=== PATIENT | female | born 1935 | race Caucasian/White ===

== ENCOUNTER → 2024-09-25 | Outpatient (CLI) | payer MEDICARE, MEDICAID, SELFPAY ==
[2024-09-25 14:46] LABS: Alanine Aminotransferase 9 U/L (10-49); Albumin/Globulin Ratio 1.3 (1.2-2.2); Alkaline Phosphatase 91 U/L (46-116); Anion Gap 6 (7-16); Aspartate Amino Transferase 19 U/L (0-34); BUN/Creatinine Ratio 26 Ratio (12-20); Bilirubin,Total 0.8 mg/dL (0.3-1.2); Blood Urea Nitrogen 31 mg/dL (9-23); Calcium 9.6 mg/dL (8.3-10.6); Calcium (Corrected) 9.6 mg/dL (8.5-10.1); Carbon Dioxide 24.9 mMol/L (20.0-31.0); Chloride 106 mMol/L (98-107); Creatinine (Component) 1.2 mg/dL (0.6-1.3); Glucose 83 mg/dL (74-106); Osmolality,Calculated 279 (275-295); Potassium 4.4 mMol/L (3.4-5.1); Sodium 137 mMol/L (136-145); eGFR 44 See Note
== END | disposition home or self-care (01) ==
PROVIDERS: PCP Family Medicine; Referring Provider Family Medicine; Visit Provider Family Medicine
DX: Z00.00 Encounter for general adult medical examination without abnormal findings (principal)
CPT/HCPCS: 36415; 80053

== ENCOUNTER → 2024-10-09 | Outpatient (CLI) | payer MEDICARE, MEDICAID, SELFPAY ==
[2024-10-09 14:14] LABS: Collection Type, Urine Clean Catch
[2024-10-09 14:38] LABS: Bilirubin,Urine Negative (Negative); Blood,Urine Negative (Negative); Clarity,Urine Clear (Clear/Hazy); Color,Urine Lt-Yellow (Lt Yel-Yel); Glucose, Urine Negative (Negative); Ketones,Urine Negative (Negative); Leukocyte Esterase,Urine Negative (Negative); Nitrite,Urine Negative (Negative); Protein,Urine Negative (Neg - Trace); RBC,Urine 2 /hpf (0-3); Specific Gravity,Urine 1.016 (1.001-1.035); Squamous Epithelial Cell,Urine 1 /hpf (0-5); Urobilinogen,Urine Negative mg/dL (0.0-1.0); WBC,Urine 3 /hpf (0-5)
== END | disposition home or self-care (01) ==
LOC: SLDO 14:03
PROVIDERS: PCP Family Medicine; Referring Provider Family Medicine; Visit Provider Family Medicine
DX: N39.0 Urinary tract infection, site not specified (principal)
CPT/HCPCS: 81001; 87086

== ENCOUNTER 2024-11-27 10:39 | Inpatient (IN) | payer MEDICARE, MEDICAID, SELFPAY ==
[2024-11-27] VITALS (8 sets, daily range): BP systolic 116–152; BP diastolic 51–82; PULSE 63–90; RESP 17–97; TEMP 36–37.1; O2SAT 96–100; BMI 17.4; BMI 16.7
--- NOTE | 2024-11-27 10:45 | PC.NURSE ---
Pt. here from home to room 9, pt. states she has no pain, pt. is a GCS of 15, grand daughter is bedside and states pt. does live alone but grand daughter states she has home health and cameras on her grand mother. Grand daughter states she has power of claim attorney. Grand daughter states over the past 4 days pt. has declined, grand daughter states she is more confused and weaker.
--- NOTE | 2024-11-27 11:26 | XR_ITS ---
Examination: AP chest single view Technique one AP portable upright chest single view Exam date and time: November 27, 2024 12:28 PM Comparison February 15, 2014 INDICATIONS: Onset chest pain today. FINDINGS: Normal heart size Accentuation basilar bronchovascular markings Severe osteopenia IMPRESSION: Basilar bronchitis pattern
--- NOTE | 2024-11-27 11:28 | EKG_ITS ---
[facility] Test Date: 2024-11-27 Pat Name: LILIANA HIGH Department: Room: - Gender: Female Public Health Sanitarian Technician: : [id number] Requested By: Sol Parsons Order Number: [id number] Reading MD: Sol Parsons Measurements Intervals [place] Rate: 61 P: 74 WV: 127 QRS: 37 QRSD: 78 T: 59 QT: 417 QTc: 423 Interpretive Statements SINUS RHYTHM Compared to ECG 12/01/2017 13:25:43 Sinus bradycardia no longer present /store/S0/[id number].pdf
--- NOTE | 2024-11-27 11:29 | XR_ITS ---
Examination:Right hip AP, lateral, AP pelvis 3 views Technique: Hip AP lateral, AP pelvis, 3 views Exam date and time:November 27, 2024 1215 hours INDICATIONS: Onset right-sided pain today. FINDINGS: Severe osteopenia No acute fracture Mild to moderate narrowing hip joints bilaterally Bones of the pelvis appear intact IMPRESSION: Mild to moderate narrowing hip joints bilaterally Given the osteopenia, recommend short-term follow-up AP pelvis as clinically warranted.
--- NOTE | 2024-11-27 11:29 | PD.EDWEAK ---
ED Weakness RME/HPI General Chief complaint: Weakness Stated complaint: WEAKNESS Time Seen by Provider: 11/27/24 11:13 Arrival date/time: 11/27/24 10:39 RME / HPI RME / HPI Narrative: 89-year-old female patient with no significant medical history, who lives alone, came in with her granddaughter, who is the power of assistant prosecuting attorney, came in for evaluation regarding generalized body weakness. Patient was seen by home health nurse today and was noted to be having less urination, foul-smelling urine, and was noted to be less mobile than usual. For the last 4 days. Granddaughter told me that he noticed the stool today was noted to be dark brown. Patient denies any vomiting blood. Patient is not taking any blood thinner. Patient denies any fall. Related Data Home Medications ?Medication ?Instructions ?Recorded ?Confirmed Amlodipine Besylate 5 mg PO HS ##0 02/15/14 12/01/17 furosemide 20 mg tablet (Lasix) 20 mg PO QDAY #0 tabs 02/15/14 12/01/17 valsartan 160 mg tablet (Diovan) 160 mg PO QDAY #0 tabs 02/15/14 12/01/17 clopidogrel 75 mg tablet (Plavix) 75 mg PO QDAY 12/01/17 12/01/17 metoprolol tartrate 50 mg tablet 50 mg PO QDAY 12/01/17 12/01/17 Allergies Allergy/AdvReac Type Severity Reaction Status Date / Time NKA Allergy Unknown Uncoded 11/27/24 10:55 Review of Systems Review of Systems Narrative Review of Systems: Review of system reviewed and within normal limits except mentioned in HPI ED Exam Narrative Physical exam: VITAL SIGNS: Reviewed. GENERAL APPEARANCE: Alert and interactive, follows commands, no acute distress, HEAD AND FACE: Non-traumatic. ENT: PERRL, pale conjunctiva, eyelid no trauma, Mucous membrane moist. NECK: Supple, nontender, no nuchal rigidity. CHEST: No tenderness, no crepitus, no paradoxical movement, no retractions. LUNGS: Clear, well ventilated, symmetric, no rales, no wheezing, no ronchi, no stridor, good breath sounds bilaterally. HEART: Regular rate, regular rhythm, no murmur, no gallops. ABDOMEN: Soft, positive bowel sounds, nondistended, no guarding, nontender, no rebound, no masses, RECTAL: Deferred. GENITAL: Deferred. NEUROLOGICAL: Gross motor function intact sensory function intact, Appropriate for age. MUSCULOSKELETAL: low back nontender, full range of motion. EXTREMITIES: Nontender, full range of motion. SKIN: Color pale, dry, no rash, no lacerations, no abrasions, no contusions. LYMPHATICS: Deferred. Course Quality Measures none Orders Category Date Time Status COVID-19 Screening Questionnaire NOW Care 11/27/24 17:[address] Screening NOW Care 11/27/24 14:32 Active Decision to Admit X1 Care 11/27/24 17:43 Active EKG (ED ONLY) *Do not use* NOW Care 11/27/24 11:29 Completed In and Out Catheter X1 Care 11/27/24 11:28 Completed NPO after Midnight ONCE Care 11/27/24 17:44 Active Occult Blood,Stool (Nursing) ONCE Care 11/27/24 11:25 Active Consult to Gastroenterology Stat Cons 11/27/24 14:33 Ordered Diet NPO after Midnight Diet 11/28/24 00:[address] abdomen pelvis w con Stat Exams 11/27/24 14:32 Completed EKG (ED Only) Stat Exams 11/27/24 11:28 Draft XR chest 1V Stat Exams 11/27/24 11:26 Completed XR hip RT w pelvis 2-3V Stat Exams 11/27/24 11:29 Completed B-Type Natriuretic Peptide Stat Lab 11/27/24 12:45 Completed CBC Stat Lab 11/27/24 12:45 Completed Comprehensive Metabolic Panel Stat Lab 11/27/24 12:45 Completed Partial Thromboplastin Time Stat Lab 11/27/24 12:45 Completed Prothrombin Time with INR Stat Lab 11/27/24 12:45 Completed Troponin I Stat Lab 11/27/24 12:45 Completed Urinalysis, C/S if Indicated Stat Lab 11/27/24 11:51 Completed NA BENEDICT/NAHCO3/MINESH/PEG (Golytely) [Golytely] Med 11/27/24 17:44 Discontinued 4,000 ml PO X1 ONE Pantoprazole Inj [Protonix Inj] Med 11/27/24 11:40 Discontinued 80 mg IV X1 ONE Sodium Chloride 0.9% 1000 ml [Ns] 1,000 ml Med 11/27/24 11:27 Discontinued IV 999 mls/hr Vital Signs Vital signs: Vital Signs Temperature 98.5 F 11/27/24 10:52 Pulse Rate 90 11/27/24 10:52 Respiratory Rate 19 11/27/24 10:52 Blood Pressure 137/63 H 11/27/24 10:52 Pulse Oximetry (%) 99 11/27/24 10:52 Oxygen Delivery Method Room Air 11/27/24 10:52 Weakness MDM Narrative MDM Narrative:: 89-year-old female patient with no significant medical history, who lives alone, came in with her granddaughter, who is the power of assistant prosecuting attorney, came in for evaluation regarding generalized body weakness. Patient was seen by home health nurse today and was noted to be having less urination, foul-smelling urine, and was noted to be less mobile than usual. For the last 4 days. Granddaughter told me that he noticed the stool today was noted to be dark brown. Patient denies any vomiting blood. Patient is not taking any blood thinner. Patient denies any fall. Rectal exam was done by me, and it was strongly positive for occult blood. It was not dark or black tarry stool however it was dark green in color. Laboratory workup came back with 12.8 WBC/leukocytosis, CMP came back unremarkable. Urinalysis no UTI. Chest x-ray came back unremarkable. X-ray of pelvis came back unremarkable. EKG showed normal sinus rhythm, ventricular rate of 61 bpm, no ST segment elevation depression noted. CT scan of the abdomen pelvis showed Cholelithiasis, negative for cholecystitis Colonic diverticulosis, no diverticulitis Very large amounts of stool in the rectum with thickening the rectal wall, consider proctitis, rectal tumor not excluded, recommend direct inspection Consider nuclear medicine gastrointestinal bleeding study follow-up as clinically warranted I consulted Dr. Henriquez, discussed the case, who advised me to keep the patient for further management. Patient data External records reviewed:: None Clinical information provided by:: patient and family Social determinants that could affect healthcare access:: none Patient has the following chronic illnesses:: Hypertension How is presenting disease/condition affected by chronic disease/condition?: uneffected by Evaluation data The following diagnostics were reviewed and interpreted by me:: lab results and radiology exam(s) Lab and/or radiology exams considered but not ordered:: None Interpretation Summary: See results in MDM Medications / Prescriptions Medications or Prescriptions considered but not ordered:: None Medication administrations:: Medication Administration History Discontinued Medications Sodium Chloride (Ns) 1,000 mls @ 999 mls/hr IV .Q1H1M ONE Stop: 11/27/24 12:27 Last Infusion: 11/27/24 13:05 Dose: Infused Documented By: Admin: 11/27/24 12:04 Dose: 999 mls/hr Documented By: ED Pantoprazole Sodium (Pantoprazole Inj 40 Mg Vial) 80 mg IV X1 ONE Stop: 11/27/24 11:41 Last Admin: 11/27/24 12:04 Dose: 80 mg Documented By: ED Polyethylene Glycol/Electrolytes (Na Benedict/Nahco3/Minesh/Peg (Golytely) 4,000 Ml Btl) 4,000 ml PO X1 ONE Stop: 11/27/24 17:45 Protonix IV, IV fluid hydration Consultations Consultation(s) initiated? (list below): Yes Consultation #1 (Physician, Specialty, Details): Spoke with Dr. Henriquez, thank you Dr. Henriquez Diagnosis Weakness Differential Diagnosis: anemia, dehydration and other (Constipation, upper GI bleed, rectal thickening rule out rectal tumor) Most likely diagnosis given after review of the tests above:: Upper GI bleed Admission Indicated Admission indicated?: indicated Admission Request Was there a request for admission?: Yes Admission Attestation Admission request attestation: Discussed case with [Dr. Logan Keller] from Hospitalist service regarding admission. Discussed patients ED course, exam findings, labs, and radiology results. The Hospitalist [agrees ] to accept the patient for admission. Disposition Plan Disposition Plan: Admit Discharge Plan Plan Patient Disposition: Admit Acute Care w/in Hospital Prescriptions/Referrals Prescriptions/Med Rec: No Action Amlodipine Besylate 5 MG tablet 5 mg PO HS Qty: 0 furosemide [Lasix] 20 MG tablet 20 mg PO QDAY Qty: 0 valsartan [Diovan] 160 MG tablet 160 mg PO QDAY Qty: 0 clopidogrel [Plavix] 75 mg Tablet 75 mg PO QDAY metoprolol tartrate 50 mg Tablet 50 mg PO QDAY Referrals: No Primary/Family,Physician [Primary Care Provider] - In 1 week Problem List Clinical Impression: Acute upper GI bleed Patient/Caregiver Discharge Instructions Print Language: [place] Stand Alone Forms: Anais Award Info., Patient Portal Info Letter
--- NOTE | 2024-11-27 11:57 | PC.NURSE ---
Grand daughter Vega talking with registration. Vega has power of Sampler Pickup.
[2024-11-27] MEDS: SODIUM CHLORIDE 0.9% 1000 ML 1,000 ML 999 ML IV (12:04)
[2024-11-27] MEDS: PANTOPRAZOLE INJ 40 MG VIAL 80 MG IV (12:04)
[2024-11-27 12:09] LABS: Collection Type, Urine Clean Catch
[2024-11-27 12:19] LABS: Bilirubin,Urine Negative (Negative); Blood,Urine Negative (Negative); Clarity,Urine Clear (Clear/Hazy); Color,Urine Yellow (Lt Yel-Yel); Culture Indicated,Urine Not Indicated; Glucose, Urine Negative (Negative); Hyaline Casts,Urine < 1 /hpf (0-1); Ketones,Urine Negative (Negative); Leukocyte Esterase,Urine Negative (Negative); Nitrite,Urine Negative (Negative); PH,Urine 5.5 (5.0-7.0); Protein,Urine Trace (Neg - Trace); RBC,Urine 1 /hpf (0-3); Specific Gravity,Urine 1.023 (1.001-1.035); Squamous Epithelial Cell,Urine 1 /hpf (0-5); WBC,Urine < 1 /hpf (0-5)
[2024-11-27 12:57] LABS: Basophils % (Auto) 0 % (0-2.5); Eosinophils % (Auto) 0 % (0-10); Hematocrit 34.4 % (36.0-46.0); Hemoglobin 11.4 g/dL (12.0-16.0); Immature Granulocytes % (Auto) 1 % (0-0); Immature Granulocytes Auto 0.07 Thou/mm3 (0.00-0.00); Lymphocytes # (Auto) 0.9 Thou/mm3 (1.0-4.8); Lymphocytes % (Auto) 7 % (10-50); Mean Corpuscular HGB Conc 33.1 g/dl (31.0-37.0); Mean Corpuscular Volume 100 fL (80-100); Monocytes # (Auto) 1.2 Thou/mm3 (0.0-0.8); Monocytes % (Auto) 10 % (0-12); Neutrophils # (Auto) 10.6 Thou/mm3 (1.8-7.7); Neutrophils % (Auto) 83 % (37-80); Nucleated Red Blood Cell % 0 /100 WBC (0); Platelet Count 213 Thou/mm3 (140-440); Red Blood Count 3.45 Miln/mm3 (4.00-5.20); White Blood Count 12.8 Thou/mm3 (3.6-11.0)
[2024-11-27 13:18] LABS: B-Type Natriuretic Peptide 326 pg/mL (0-100); INR 1.1 (0.9-1.3); Partial Thromboplastin Time 28.6 Seconds (22.0-36.0); Prothrombin Time 11.6 Seconds (9.0-12.2)
[2024-11-27 13:31] LABS: Alanine Aminotransferase 10 U/L (10-49); Albumin, Serum 3.8 gm/dL (3.4-4.8); Albumin/Globulin Ratio 1.1 (1.2-2.2); Alkaline Phosphatase 79 U/L (46-116); Anion Gap 10 (7-16); Aspartate Amino Transferase 26 U/L (0-34); BUN/Creatinine Ratio 30 Ratio (12-20); Bilirubin,Total 0.9 mg/dL (0.3-1.2); Blood Urea Nitrogen 36 mg/dL (9-23); Calcium 9.7 mg/dL (8.3-10.6); Calcium (Corrected) 9.9 mg/dL (8.5-10.1); Carbon Dioxide 26.3 mMol/L (20.0-31.0); Chloride 106 mMol/L (98-107); Creatinine (Component) 1.2 mg/dL (0.6-1.3); Estimated Creatinine Clearance 24.4 mL/min (>60); Globulin 3.4 gm/dL (2.3-3.5); Glucose 109 mg/dL (74-106); Osmolality,Calculated 292 (275-295); Potassium 4.3 mMol/L (3.4-5.1); Sodium 142 mMol/L (136-145); Total Protein 7.2 gm/dL (5.7-8.2); Troponin I < 0.020 ng/mL (0.0-0.045); eGFR 44 See Note
--- NOTE | 2024-11-27 14:32 | XR_ITS ---
Examination: CT abdomen with intravenous contrast CT pelvis with intravenous contrast 2-D coronal reconstructions 2-D sagittal reconstructions Date and time of exam:November 27, 2024 1545 hours INDICATIONS: Onset lower abdominal pain today. Gastrointestinal bleeding CTDI: vol (mGy) 8.62 DLP: (mGycm) 442 Technique: Multiple axial sections of the abdomen and pelvis have been obtained. 64 slice high-resolution scanner used. 3 mm axial sections have been obtained, post intravenous injection 60 cc [id number] 2-D sagittal, coronal reconstructions obtained. Low dose protocols were performed. One or more of the following dose reduction techniques were used; automated exposure control, adjustment of the mA and/or KV according to patient size, use of iterative reconstruction technique. Findings: Atelectasis in the right lower lobe Cholelithiasis, gallbladder wall does not appear thickened Spleen is not enlarged No pancreatic mass or dilated pancreatic duct Heavy abdominal aortic calcification Colonic diverticulosis Large amounts of stool in the rectum with thickening of the rectal wall Urinary bladder intact Severe osteopenia IMPRESSION: Cholelithiasis, negative for cholecystitis Colonic diverticulosis, no diverticulitis Very large amounts of stool in the rectum with thickening the rectal wall, consider proctitis, rectal tumor not excluded, recommend direct inspection Consider nuclear medicine gastrointestinal bleeding study follow-up as clinically warranted
--- NOTE | 2024-11-27 14:45 | PC.NURSE ---
Pt. cleaned and brief changed. Pt. had a large amount of hard dark brown stool and blood around her anus. Sol JOGGER OPERATOR bedside to see stool. Sol stating to pt.'s grand daughter that pt. will be admitted.
--- NOTE | 2024-11-27 18:40 | ESHP_ITS ---
<Statement entered by Leatha Rao MD - 11/27/24 19:20> Patient is an 89 year old female with PMH of dementia, CAD s/p stents x2, TIA who was brought to the ED from home for generalized weakness and decreased urine output. Vitals were stable, labs significant for anemia at 11. CT ap showed thickening around the rectum. Per ER report, patient had melena and so called GI who recommended to admit the patient for endoscopy. At bedside, patient is awake, alert but confused and did not want to be admitted. The granddaughter is the medical and legal POA. Only medication is rexulti (brexpripazole). Not on any blood thinners. Patient to be admitted for acute GI bleed. Will give protonix, CLD, and avoid any blood thinners. Will get iron study as well. GI consulted. Leatha Rao MD PGY-3 Documentation for date of: 11/27/24 HPI History of Present Illness Chief complaint: melena and failure to thrive History of present illness: 89-year-old female with past medical history of dementia, CAD status post 2 stents and TIA was admitted to the hospital on 11/27/2024 after coming to the ED brought in by her granddaughter who is her medical power of [place] attorney due to progressing weakness, dark stools, decrease in mobility, and urinary and bowel incontinence. On assessment patient's granddaughter was at bedside and able to provide most of the history given that patient has dementia, but was AOx3 yet she was confused with most of the history or events leading to her coming to the hospital today. As per patient's granddaughter and she has been having very poor oral intake as of recently and for the past 30 days she started having a lot of pain and straining when passing a bowel movement or peeing. She also noticed that she was leaking urine and that supposedly she had blood in her urine and in her stools. She stated that just as of recently a few weeks ago she started feeling a lot weaker and has not been able to ambulate due to feeling weak. Patient was reluctant about being admitted to the hospital, but granddaughter stated that she needed to be admitted and she laid on stated that she was okay with 1 night. Patient granddaughter stated that today she did not take her brexpiprazole and that may be why her dementia has a little bit worse. She stated that the patient is not taking any other medications at this time only brexpiprazole and that she is only following up with her primary care physician. Patient denies any chest pain, nausea, vomiting, fevers, or shortness of breath and the patient's granddaughter said that this was correct that she had not been experiencing any of the symptoms. Patient granddaughter also stated that she is not on any blood thinners at this time. Of note patient's granddaughter stated the patient is DNR/DNi and has a POLST form signed, will have social workers follow-up. ED course: Initially patient came in mildly hypertensive and afebrile. Initial labs were relevant for mild leukocytosis (12.8), anemia (11.4), increased BUN (36) which could be due to bleeding, elevated BNP at 326, and UA was negative for bacteria. Initial imaging included chest x-ray which showed some bronchitis pattern, hip/pelvis x-ray which was consistent with osteoporosis of the hips bilaterally, EKG showed sinus rhythm, and abdomen/pelvis CT showed cholelithiasis, colonic diverticulosis, and very large amount of stool in the rectum with thickening of the rectal wall. ED physician contacted GI specialist who stated to place the patient n.p.o. at midnight and to start GoLytely prep. PMH: As above Surgical Hx: Hysterectomy and stents Social Hx: Denies any smoking, drugs, alcohol FMH: Children with lung cancer, but otherwise noncontributory Allergies: NKDA Review of Systems Review of Systems Narrative Review of Systems: Constitutional: Denies sweats, Denies weight loss/gain, Denies fever, Denies chills, Admits weakness. HEENT: Denies hearing loss, Denies ear pain, Denies postnasal drip, Denies double vision, Denies blurry vision. Respiratory: Denies shortness of breath, Denies cough, Denies wheezing. Cardiovascular: Denies chest pain, Denies palpitations, Denies sudden loss of consciousness. GI: Admits blood in stool, Denies constipation, Admits abdominal pain, Denies difficulty swallowing, Denies nausea or vomit. : Admits urinary incontinence, Denies pain while urinating, Denies increased urinary frequency. MSK: Denies joint pain, Denies joint swelling, Denies numbness. Skin: Denies rash, Denies itching, Denies easy bruising. Neuro: Denies headaches, Denies dizziness, Denies seizures. Past Medical History Past Medical History Comments PMH COMMENT: amnesia Hysterectomy Hypertension Medications including medication for blood pressure, Lasix and Plavix Exam Vital Signs Temp Pulse Resp BP Pulse Ox O2 Del Method 98.6 F 75 20 152/75 H 99 Room Air 11/27/24 18:19 11/27/24 18:19 11/27/24 18:19 11/27/24 18:19 11/27/24 18:19 11/27/24 18:19 Narrative Exam General: A/O x3, no acute distress, thin frail elderly female with temporal wasting Eyes: PERRL, EOMI. Anicteric, vision grossly intact. Ears: No ear pain, no ear discharge, Hearing grossly intact. Nose: No nasal discharge. Mouth/Throat: Dry mucous membranes, no redness, no lesions. Neck: Neck supple, non-tender, no cervical lymphadenopathy. Lungs: Clear AUGUSTINE to auscultation and percussion, No accessory muscle use. Cardio: Normal S1/S2, regular rhythm, no murmurs, no JVD Abdomen: Soft, non-tender, no palpable masses, peristalsis present, no guarding or rebound. Extremities: Symmetrical, no significant deformities, no peripheral edema , non-tender, peripheral pulses presents. Skin: No rashes, no lesions, warm to touch. Neuro: No focal neurological deficits. motor strength AUGUSTINE LE 3/5 and UE 4/5 Results: Labs 11/29/24 05:09 11/29/24 05:09 Labs: Short CBC 11/27/24 Range/Units 12:45 WBC 12.8 H (3.6-11.0) Thou/mm3 Hgb 11.4 L (12.0-16.0) g/dL Hct 34.4 L (36.0-46.0) % Plt Count 213 (140-440) Thou/mm3 BMP 11/27/24 12:45 Sodium 142 Potassium 4.3 Chloride 106 Carbon Dioxide 26.3 BUN 36 H Creatinine 1.2 Glucose 109 H Calcium 9.7 Cardiac Enzymes 11/27/24 Range/Units 12:45 Troponin I < 0.020 (0.0-0.045) ng/mL Liver Function 11/27/24 Range/Units 12:45 Total Bilirubin 0.9 (0.3-1.2) mg/dL AST 26 (0-34) U/L ALT 10 (10-49) U/L Alkaline Phosphatase 79 (46-116) U/L Albumin 3.8 (3.4-4.8) gm/dL Urine 11/27/24 Range/Units 11:51 Urine Color Yellow (Lt Yel-Yel) Urine Clarity Clear (Clear/Hazy) Urine pH 5.5 (5.0-7.0) Ur Specific [place] 1.023 (1.001-1.035) Urine Protein Trace (Neg - Trace) Urine Glucose (UA) Negative (Negative) Quality Measures Quality Measures none Advance care planning discussed with:: patient and other (granddaughter) Medications Home Medications and Allergies Home Medications ?Medication ?Instructions ?Recorded ?Confirmed ?Type brexpiprazole 1 mg tablet (Rexulti) mg 11/28/24 Histo ry Allergies Allergy/AdvReac Type Severity Reaction Status Date / Time No Known Allergies Allergy Unverified 11/28/24 08:39 Visit Medications Acetaminophen (Acetaminophen 325 Mg Tablet) 650 mg PO Q6H PRN PRN Reason: pain and Fever >100.4 Stop: 12/27/24 18:18 Hydrocodone Bitart/Acetaminophen (Hydrocodone/Apap 5/325 Tablet) 1 tab PO Q4HR PRN PRN Reason: PAIN SCALE 4-10(Mod-Sev Stop: 12/02/24 18:18 Sodium Chloride (Ns) 1,000 mls @ 75 mls/hr IV .[id number] [facility] Stop: 11/28/24 07:49 Non-Formulary Medication (Brexpiprazole ) 1 mg PO QDAY [facility] Stop: 12/28/24 08:59 Ondansetron HCl (Ondansetron Inj 2 Mg/Ml Inj 2 Ml) 4 mg IV Q6H PRN; Protocol PRN Reason: NAUSEA OR VOMITING Stop: 12/27/24 18:18 Pantoprazole Sodium (Pantoprazole Inj 40 Mg Vial) 40 mg IVP BID [facility] Stop: 12/28/24 08:59 Discontinued Medications Sodium Chloride (Ns) 1,000 mls @ 999 mls/hr IV .Q1H1M ONE Stop: 11/27/24 12:27 Last Infusion: 11/27/24 13:05 Dose: Infused Pantoprazole Sodium (Pantoprazole Inj 40 Mg Vial) 80 mg IV X1 ONE Stop: 11/27/24 11:41 Last Admin: 11/27/24 12:04 Dose: 80 mg Polyethylene Glycol/Electrolytes (Na Benedict/Nahco3/Minesh/Peg (Golytely) 4,000 Ml Btl) 4,000 ml PO X1 ONE Stop: 11/27/24 17:45 Assessment & Plan Plan 89-year-old female with past medical history of dementia, CAD status post 2 stents and TIA was admitted to the hospital on 11/27/2024 due to acute blood loss anemia likely secondary to TIA bleed and failure to thrive. #Acute blood loss anemia #GI bleed #Melena ?Patient came in with complaints of dark stools ? DDx lower GI bleed given CT imaging of proctitis which could be due to malignancy versus upper GI bleed ?FOBT positive ? Hemoglobin 11.4 from her baseline around 13 ?Elevated BUN at 36 which could be related to bleeding Plan: ? Protonix 40 mg IV twice daily ? Iron panel and ferritin ordered for a.m. labs ? GoLytely prep for possible colonoscopy by GI specialist ?Bleeding precautions ? GI consulted, pursue recommendations ? Will continue to monitor #Generalized weakness #Failure to thrive #Cachexia #Hx of dementia ??Patient has been having declining her daily activities as she has been unable to walk due to weakness in lower extremities and she has also been having poor oral intake. ? Patient has a history of dementia which could be contributing to her lack of appetite as well as her poor oral intake. ? Patient's granddaughter at bedside stated that she has progressively got more weak in the past few weeks. Plan: ?Start patient's brexpiprazole 1 mg daily ? IV fluids NS 1 L ? Refer to physical therapy and registered dietitian ?Will try to monitor #Urinary incontinence ? Will place pure wick catheter at this time #Hx of CAD status post stents #Hx of TIA ? Patient is not on any medication at this time [facility]: [facility] and failure to thrive. Diet: NPO midnight GI prophylaxis: protonix DVT prophylaxis: SCDs Code: DNR Case disclosed with Attending Dr. Bauman and My senior Dr. Rao PGY3. Jameel Dobson PGY1 Attending Provider Attestation/Addendum I have discussed and was present for the essential components of the history, physical examination, diagnosis, and treatment plan with the resident. I agree with the patient's care as documented by the resident and amended herein by me. Tima Bauman DO. Although this document has been carefully reviewed, there may still be some phonetic and other typographical errors. These errors are purely grammatical due to imperfections in the software program and should not be construed in any way to compromise the substance of the patient's medical care during this visit.
[2024-11-27] MEDS: SODIUM CHLORIDE 0.9% 1000 ML 1,000 ML 75 ML IV (20:06)
--- NOTE | 2024-11-27 23:20 | PD.IMCONS ---
HPI Data of Consult Requesting Physician: Miles Bauman DO Primary Care Provider: Physician No Primary/Family Consult Narrative Reason for consult: Grossly Hemoccult positive stool drop in hemoglobin hematocrit History of present illness: 89 years old female brought into the emergency room by the daughter who has power of forestry patrolman complains of dark stools and weakness She was found to be grossly Hemoccult positive on rectal disease examination in the ER and subsequently got admitted She does take Plavix cc:: cc: Miles Bauman DO Review of Systems Review of Systems ROS Unobtainable: unobtainable due to medical condition Meds Home Medications and Allergies Home Medications ?Medication ?Instructions ?Recorded ?Confirmed ?Type Amlodipine Besylate 5 mg PO HS ##0 02/15/14 12/01/17 History furosemide 20 mg tablet (Lasix) 20 mg PO QDAY #0 tabs 02/15/14 12/01/17 History valsartan 160 mg tablet (Diovan) 160 mg PO QDAY #0 tabs 02/15/14 12/01/17 History clopidogrel 75 mg tablet (Plavix) 75 mg PO QDAY 12/01/17 12/01/17 History metoprolol tartrate 50 mg tablet 50 mg PO QDAY 12/01/17 12/01/17 History Allergies Allergy/AdvReac Type Severity Reaction Status Date / Time NKA Allergy Unknown Uncoded 11/27/24 10:55 Exam Vital Signs Temp Pulse Resp BP Pulse Ox O2 Del Method 96.8 F 88 18 151/82 H 97 Room Air 11/27/24 22:06 11/27/24 22:06 11/27/24 22:06 11/27/24 22:06 11/27/24 22:06 11/27/24 22:06 Results Labs 11/27/24 12:45 11/27/24 12:45 Labs: Short CBC 11/27/24 Range/Units 12:45 WBC 12.8 H (3.6-11.0) Thou/mm3 Hgb 11.4 L (12.0-16.0) g/dL Hct 34.4 L (36.0-46.0) % Plt Count 213 (140-440) Thou/mm3 BMP 11/27/24 12:45 Sodium 142 Potassium 4.3 Chloride 106 Carbon Dioxide 26.3 BUN 36 H Creatinine 1.2 Glucose 109 H Calcium 9.7 Cardiac Enzymes 11/27/24 Range/Units 12:45 Troponin I < 0.020 (0.0-0.045) ng/mL Liver Function 11/27/24 Range/Units 12:45 Total Bilirubin 0.9 (0.3-1.2) mg/dL AST 26 (0-34) U/L ALT 10 (10-49) U/L Alkaline Phosphatase 79 (46-116) U/L Albumin 3.8 (3.4-4.8) gm/dL Urine 11/27/24 Range/Units 11:51 Urine Color Yellow (Lt Yel-Yel) Urine Clarity Clear (Clear/Hazy) Urine pH 5.5 (5.0-7.0) Ur Specific [place] 1.023 (1.001-1.035) Urine Protein Trace (Neg - Trace) Urine Glucose (UA) Negative (Negative) Assessment and Plan Additional Assessment & Plan Additional Plan: # Acute GI bleed most likely upper Plan Serial CBC IV Protonix Fiberoptic esophagogastroduodenoscopy with possible biopsy possible therapeutic intervention under intravenous moderate sedation Consent obtained Procedure tentatively scheduled for tomorrow Will follow the patient
[2024-11-28] VITALS (14 sets, daily range): BP systolic 121–164; BP diastolic 57–89; PULSE 54–101; RESP 16–99; TEMP 36–36.9; O2SAT 91–99; BMI 16.8
[2024-11-28 05:42] LABS: Basophils % (Auto) 0 % (0-2.5); Eosinophils # (Auto) 0.1 Thou/mm3 (0.0-0.5); Eosinophils % (Auto) 1 % (0-10); Hematocrit 31.6 % (36.0-46.0); Hemoglobin 10.6 g/dL (12.0-16.0); Immature Granulocytes % (Auto) 1 % (0-0); Immature Granulocytes Auto 0.04 Thou/mm3 (0.00-0.00); Immature Reticulocyte Fraction 17.9 % (3.0-15.9); Lymphocytes # (Auto) 1.2 Thou/mm3 (1.0-4.8); Lymphocytes % (Auto) 16 % (10-50); Mean Corpuscular HGB Conc 33.5 g/dl (31.0-37.0); Mean Corpuscular Hemoglobin 33.8 pg (25.0-35.0); Mean Corpuscular Volume 101 fL (80-100); Monocytes # (Auto) 0.8 Thou/mm3 (0.0-0.8); Monocytes % (Auto) 10 % (0-12); Neutrophils # (Auto) 5.7 Thou/mm3 (1.8-7.7); Neutrophils % (Auto) 72 % (37-80); Nucleated Red Blood Cell % 0 /100 WBC (0); Platelet Count 201 Thou/mm3 (140-440); RDW Standard Deviation 46.3 fL (36.4-46.3); Red Blood Count 3.14 Miln/mm3 (4.00-5.20); Reticulocyte % (Auto) 1.3 % (0.5-1.5); Reticulocyte Absolute Auto 41.4 Biln/L (25.0-75.0); Reticulocyte Hgb Content 33.2 pg (28.0-35.0); White Blood Count 7.8 Thou/mm3 (3.6-11.0)
[2024-11-28 06:28] LABS: Alanine Aminotransferase 7 U/L (10-49); Albumin, Serum 3.4 gm/dL (3.4-4.8); Albumin/Globulin Ratio 1.1 (1.2-2.2); Alkaline Phosphatase 73 U/L (46-116); Anion Gap 10 (7-16); Aspartate Amino Transferase 18 U/L (0-34); BUN/Creatinine Ratio 27 Ratio (12-20); Blood Urea Nitrogen 27 mg/dL (9-23); Calcium 9.1 mg/dL (8.3-10.6); Calcium (Corrected) 9.6 mg/dL (8.5-10.1); Carbon Dioxide 24.5 mMol/L (20.0-31.0); Chloride 111 mMol/L (98-107); Estimated Creatinine Clearance 28.1 mL/min (>60); Glucose 87 mg/dL (74-106); Magnesium 1.9 mg/dL (1.6-2.6); Osmolality,Calculated 292 (275-295); Potassium 3.4 mMol/L (3.4-5.1); Sodium 145 mMol/L (136-145); Total Protein 6.4 gm/dL (5.7-8.2); eGFR 54 See Note
[2024-11-28 06:45] LABS: Ferritin 132 ng/mL (7.3-270.7); Iron 50 mcg/dL (50-170); Percent Iron Saturation 24 % (20-55); Total Iron Binding Capacity 206 mcg/dL (250-425); Unsaturated Iron Binding 156 (225-295)
[2024-11-28] MEDS: PANTOPRAZOLE INJ 40 MG VIAL IVP ×2 (09:06→21:53)
[2024-11-28] MEDS: POTASSIUM CHLORIDE 20 mEq TABCR 40 MEQ PO (09:07)
[2024-11-28] MEDS: HALOPERIDOL LACT INJ 5 MG/ML VIAL IV (13:15)
--- NOTE | 2024-11-28 13:49 | ESPR_ITS ---
<Statement entered by Leatha Rao MD - 11/28/24 17:28> I discussed with and supervised my co-resident involved in the care of this patient. I agree with the assessment and plan as documented above. Patient seen at bedside, grand-daughter also at bedside. Patient not sure if having any more bloody bowl movement. Hemoglobin at 10.6 today, leukocytosis improved. GI following, plan for EGD today. Continuing IV protonix BID. Leatha Rao MD PGY-3 Documentation for date of: 11/28/24 Subjective Subjective Interval history: Patient seen and examined at bedside. No events overnight. She is irritated and anxious while waiting for EGD. Labs show improved leukocytosis 7.8, downtrended Hb 10.6. EGD possible this evening. Continue IV protonix 40mg BID. Anticipate discharge next 24 hrs pending EGD results and Hb trend. Exam Vital Signs Temp Pulse Resp BP Pulse Ox O2 Del Method 97.8 F 93 18 137/78 H 99 Room Air 11/28/24 08:00 11/28/24 08:00 11/28/24 08:00 11/28/24 08:00 11/28/24 08:00 11/28/24 08:00 Narrative Exam General: A/O x3, iritable, thin frail elderly female Eyes: PERRL, EOMI. Anicteric, vision grossly intact. Ears: No ear pain, no ear discharge, Hearing grossly intact. Nose: No nasal discharge. Mouth/Throat: Dry mucous membranes, no redness, no lesions. Neck: Neck supple, non-tender, no cervical lymphadenopathy. Lungs: Clear AUGUSTINE to auscultation and percussion, No accessory muscle use. Cardio: Normal S1/S2, regular rhythm, no murmurs, no JVD Abdomen: Soft, non-tender, no palpable masses, peristalsis present, no guarding or rebound. Extremities: Symmetrical, no significant deformities, no peripheral edema , non-tender, peripheral pulses presents. Skin: No rashes, no lesions, warm to touch. Neuro: No focal neurological deficits. motor strength AUGUSTINE LE 3/5 and UE 4/5 Objective Labs 11/29/24 05:09 11/29/24 05:09 Labs: Laboratory Results - last 24 hr 11/28/24 04:43 WBC 7.8 D RBC 3.14 L Hgb 10.6 L Hct 31.6 L MCV 101 H MCH 33.8 MCHC 33.5 RDW Std Deviation 46.3 Plt Count 201 Neut % (Auto) 72 Lymph % (Auto) 16 [place] % (Auto) 10 Eos % (Auto) 1 Baso % (Auto) 0 Neut # (Auto) 5.7 Lymph # (Auto) 1.2 [place] # (Auto) 0.8 Eos # (Auto) 0.1 Baso # (Auto) 0.0 Immature Gran # (Auto) 0.04 H Absolute Nucleated RBC 0.00 Immature Gran % 1 H Nucleated RBC % 0 Retic Count (auto) 1.3 Absolute Retic 41.4 Immature Retic Fraction 17.9 H Retic Hgb Content CHr 33.2 Sodium 145 Potassium 3.4 D Chloride 111 H Carbon Dioxide 24.5 Anion Gap 10 BUN 27 H Creatinine 1.0 Estim Creat Clear Calc 28.1 L eGFR 54 L BUN/Creatinine Ratio 27 H Glucose 87 Calculated Osmolality 292 Calcium 9.1 Corrected Calcium 9.6 Magnesium 1.9 Iron 50 TIBC 206 L Iron Saturation 24 Unsat Iron Binding 156 L Ferritin 132 Total Bilirubin 1.0 AST 18 ALT 7 L Alkaline Phosphatase 73 Total Protein 6.4 Albumin 3.4 Globulin 3.0 Albumin/Globulin Ratio 1.1 L Quality Measures Quality Measures none Advance care planning discussed with:: patient Assessment & Plan Assessment Current Active Medications: Generic Name Dose Route Start Last Admin Trade Name Freq PRN Reason Stop Dose Admin Acetaminophen 650 mg 11/28/24 09:43 Acetaminophen 325 Mg Tablet PO 12/27/24 18:18 Q6H PRN pain and Fever >100.4 Hydrocodone Bitart/Acetaminophen 1 tab 11/27/24 18:19 Hydrocodone/Apap 5/325 Tablet PO 12/02/24 18:18 Q4HR PRN PAIN SCALE 4-10(Mod-Sev Amlodipine Besylate 5 mg 11/28/24 09:00 11/28/24 09:36 Amlodipine Besylate 5 Mg Tablet PO 12/28/24 08:59 Not Given QDAY MARIANA Brexpiprazole 1mg 0 ea 11/28/24 21:00 Tablet PO 12/28/24 20:59 HS MARIANA Ondansetron HCl 4 mg 11/27/24 18:19 Ondansetron Inj 2 Mg/Ml Inj 2 Ml IV 12/27/24 18:18 Q6H PRN NAUSEA OR VOMITING Protocol Pantoprazole Sodium 40 mg 11/28/24 09:00 11/28/24 09:06 Pantoprazole Inj 40 Mg Vial IVP 12/28/24 08:59 40 mg BID MARIANA Administration Plan Pamela Mims is 89-year-old female with past medical history of dementia, CAD status post 2 stents and TIA. Admitted to the hospital on 11/27/2024 due to acute blood loss anemia likely secondary to GI bleed and failure to thrive. #Acute blood loss anemia 11/16 #Upper GI bleed #Melena ?Patient came in with complaints of dark stools ? DDx lower GI bleed given CT imaging of proctitis which could be due to malignancy versus upper GI bleed ?FOBT positive ? Hemoglobin 11.4 from her baseline around 13 ?Elevated BUN at 36 which could be related to bleeding Iron 50, ferritin 32 Plan: ? Protonix 40 mg IV twice daily ? GoLytely prep for possible colonoscopy/EGD by GI specialist ?Bleeding precautions ? GI consulted, pursue recommendations ? Will continue to monitor #Generalized weakness #Failure to thrive #Cachexia #Hx of dementia ??Patient has been having declining her daily activities as she has been unable to walk due to weakness in lower extremities and she has also been having poor oral intake. ? Patient has a history of dementia which could be contributing to her lack of appetite as well as her poor oral intake. ? Patient's granddaughter at bedside stated that she has progressively got more weak in the past few weeks. Plan: ?Start patient's brexpiprazole 1 mg daily ? IV fluids NS 1 L ? Refer to physical therapy and registered dietitian #Urinary incontinence ? Will place pure wick catheter at this time #Hx of CAD status post stents #Hx of TIA ? Patient is not on any medication at this time Disposition: pending EGD Diet: NPO midnight GI prophylaxis: protonix DVT prophylaxis: SCDs Code: DNR The patient's management plan was discussed with my attending physician Dr. Bauman and senior Dr. Rao. Deyanira Hui, PGY-1 Attending Provider Attestation/Addendum I have discussed and was present for the essential components of the history, physical examination, diagnosis, and treatment plan with the resident. I agree with the patient's care as documented by the resident and amended herein by me. Tima Bauman DO. Although this document has been carefully reviewed, there may still be some phonetic and other typographical errors. These errors are purely grammatical due to imperfections in the software program and should not be construed in any way to compromise the substance of the patient's medical care during this visit.
--- NOTE | 2024-11-28 15:34 | PC.SS ---
Pamela Mims is a 89-year-old female admitted to Med-Surg for Acute Blood Loss Anemia. conducted bedside contact with the patient and her granddaughter-Vega Mcgarry [phone] to complete initial assessment and to discuss discharge planning. Vega confirmed demographic information. Vega answered on the pts behalf, she identifies her has the pts surrogate decision maker. Vega reports the patient resides at home alone, but between herself and other family members there is always someone with her Pt requires minimal assistance with ADLs, Vega reports it has become harder for pt to do things due to weakness. Pt followed by [facility] prior to admission and wishes to continue with their services upon DC. Pts PCP is Dr. Clark Ruelas (last visit last week) and her pharmacy of choice is [facility] on [address]. DC options discussed, pt wishes to return home. Pts will provide transportation upon DC. No further intervention required at this time, oncology social work would be available to address any further concerns. DC Plan: HH ([facility]) Contact: Vega Mcgarry [phone] PCP: Clark Ruelas
[2024-11-28] MEDS: hydrOXYzine HCL 25 MG TABLET PO (16:02)
--- NOTE | 2024-11-28 19:02 | PC.NURSE ---
Patient went to EGD.
[2024-11-29] VITALS (7 sets, daily range): BP systolic 106–129; BP diastolic 51–73; PULSE 68–88; RESP 16–97; TEMP 36.3–36.6; O2SAT 94–97
[2024-11-29 05:42] LABS: Basophils % (Auto) 1 % (0-2.5); Eosinophils # (Auto) 0.3 Thou/mm3 (0.0-0.5); Eosinophils % (Auto) 4 % (0-10); Hematocrit 30.7 % (36.0-46.0); Hemoglobin 10.2 g/dL (12.0-16.0); Immature Granulocytes % (Auto) 1 % (0-0); Immature Granulocytes Auto 0.04 Thou/mm3 (0.00-0.00); Lymphocytes # (Auto) 1.1 Thou/mm3 (1.0-4.8); Lymphocytes % (Auto) 14 % (10-50); Mean Corpuscular HGB Conc 33.2 g/dl (31.0-37.0); Mean Corpuscular Hemoglobin 33.7 pg (25.0-35.0); Mean Corpuscular Volume 101 fL (80-100); Monocytes # (Auto) 0.7 Thou/mm3 (0.0-0.8); Monocytes % (Auto) 9 % (0-12); Neutrophils # (Auto) 5.4 Thou/mm3 (1.8-7.7); Neutrophils % (Auto) 72 % (37-80); Nucleated Red Blood Cell % 0 /100 WBC (0); Platelet Count 168 Thou/mm3 (140-440); RDW Standard Deviation 46.4 fL (36.4-46.3); Red Blood Count 3.03 Miln/mm3 (4.00-5.20); White Blood Count 7.5 Thou/mm3 (3.6-11.0)
[2024-11-29 06:37] LABS: Alanine Aminotransferase 8 U/L (10-49); Albumin, Serum 3.1 gm/dL (3.4-4.8); Albumin/Globulin Ratio 1.1 (1.2-2.2); Alkaline Phosphatase 62 U/L (46-116); Anion Gap 10 (7-16); Aspartate Amino Transferase 22 U/L (0-34); BUN/Creatinine Ratio 22 Ratio (12-20); Bilirubin,Total 0.8 mg/dL (0.3-1.2); Blood Urea Nitrogen 22 mg/dL (9-23); Calcium 8.9 mg/dL (8.3-10.6); Calcium (Corrected) 9.6 mg/dL (8.5-10.1); Carbon Dioxide 21.6 mMol/L (20.0-31.0); Chloride 112 mMol/L (98-107); Estimated Creatinine Clearance 28.1 mL/min (>60); Globulin 2.7 gm/dL (2.3-3.5); Glucose 63 mg/dL (74-106); Osmolality,Calculated 288 (275-295); Potassium 4.3 mMol/L (3.4-5.1); Sodium 144 mMol/L (136-145); Total Protein 5.8 gm/dL (5.7-8.2); eGFR 54 See Note
[2024-11-29] MEDS: PANTOPRAZOLE INJ 40 MG VIAL IVP ×2 (09:31→23:08)
[2024-11-29] MEDS: SUCRALFATE SUSP 1 GM/10 ML UDC PO ×3 (11:46→23:06)
--- NOTE | 2024-11-29 13:52 | PD.RESPRO ---
Documentation for date of: 11/29/24 Subjective Subjective Interval history: Patient seen and examined at bedside. She was sleeping, granddaughter did not want her woken up. EGD yesterday showed 1 esophageal ulcer and gastritis. Per GI, patient to continue PUD diet and protonix 40mg daily. Per nursing, patient had bowel movement last night. No blood in stool. Hb is stable 10. It was recommended to family that patient go to SNF for wound care/PT. Granddaughter is decision maker who is denying SNF and requesting HH. Anticipate discharge tomorrow with HH, wound care, and PT. Swallow eval pending. Continue protonix and start sucralfate 1g QID Exam Vital Signs Temp Pulse Resp BP Pulse Ox O2 Del Method O2 Flow Rate 97.7 F 88 19 115/65 94 L Room Air 3 11/29/24 12:00 11/29/24 12:00 11/29/24 12:00 11/29/24 12:11/29/24 12:11/29/24 12:11/28/24 19:35 Narrative Exam General: sleeping, per nursing pt has been lethargic all day. Cardiovascular: Normal S1 and S2. Regular rate and rhythm. Respiratory: Lungs are clear to auscultation bilaterally. No wheezing or crackles heard. Abdomen: Soft, nontender, not distended, normal bowel sounds. Skin: Warm to touch, dry, no rashes noted Musculoskeletal: No gross injuries. Able to move all 4 extremities. No pitting edema Neuro: wakes up for few seconds and falls back asleep. Psych: Normal affect and mood Objective Labs 11/29/24 05:09 11/29/24 05:09 Labs: Laboratory Results - last 24 hr 11/29/24 05:09 WBC 7.5 RBC 3.03 L Hgb 10.2 L Hct 30.7 L MCV 101 H MCH 33.7 MCHC 33.2 RDW Std Deviation 46.4 H Plt Count 168 D Neut % (Auto) 72 Lymph % (Auto) 14 [place] % (Auto) 9 Eos % (Auto) 4 Baso % (Auto) 1 Neut # (Auto) 5.4 Lymph # (Auto) 1.1 [place] # (Auto) 0.7 Eos # (Auto) 0.3 Baso # (Auto) 0.0 Immature Gran # (Auto) 0.04 H Absolute Nucleated RBC 0.00 Immature Gran % 1 H Nucleated RBC % 0 Sodium 144 Potassium 4.3 D Chloride 112 H Carbon Dioxide 21.6 Anion Gap 10 BUN 22 Creatinine 1.0 Estim Creat Clear Calc 28.1 L eGFR 54 L BUN/Creatinine Ratio 22 H Glucose 63 L Calculated Osmolality 288 Calcium 8.9 Corrected Calcium 9.6 Magnesium 2.0 Total Bilirubin 0.8 AST 22 ALT 8 L Alkaline Phosphatase 62 Total Protein 5.8 Albumin 3.1 L Globulin 2.7 Albumin/Globulin Ratio 1.1 L Quality Measures Quality Measures none Advance care planning discussed with:: other Assessment & Plan Assessment Current Active Medications: Generic Name Dose Route Start Last Admin Trade Name Freq PRN Reason Stop Dose Admin Acetaminophen 650 mg 11/28/24 09:43 Acetaminophen 325 Mg Tablet PO 12/27/24 18:18 Q6H PRN pain and Fever >100.4 Hydrocodone Bitart/Acetaminophen 1 tab 11/27/24 18:19 Hydrocodone/Apap 5/325 Tablet PO 12/02/24 18:18 Q4HR PRN PAIN SCALE 4-10(Mod-Sev Amlodipine Besylate 5 mg 11/28/24 09:00 11/29/24 09:32 Amlodipine Besylate 5 Mg Tablet PO 12/28/24 08:59 Not Given QDAY MARIANA Brexpiprazole 1mg 0 ea 11/28/24 21:00 11/28/24 21:54 Tablet PO 12/28/24 20:59 1 tablet HS MARIANA Administration Ondansetron HCl 4 mg 11/27/24 18:19 Ondansetron Inj 2 Mg/Ml Inj 2 Ml IV 12/27/24 18:18 Q6H PRN NAUSEA OR VOMITING Protocol Pantoprazole Sodium 40 mg 11/28/24 09:00 11/29/24 09:31 Pantoprazole Inj 40 Mg Vial IVP 12/28/24 08:59 40 mg BID MARIANA Administration Sucralfate 1 gm 11/29/24 12:00 11/29/24 11:46 Sucralfate Susp 1 Gm/10 Ml Udc PO 12/29/24 11:59 1 gm QID MARIANA Administration Plan Pamela Mims is 89-year-old female with past medical history of dementia, CAD status post 2 stents and TIA. Admitted to the hospital on 11/27/2024 due to acute blood loss anemia likely secondary to GI bleed and failure to thrive. #Acute blood loss anemia 2/2 #Upper GI bleed #Melena #s/p EGD showing Gastritis #Esophageal ulcer ?Patient came in with complaints of dark stools ? DDx lower GI bleed given CT imaging of proctitis which could be due to malignancy versus upper GI bleed ?FOBT positive ? Hemoglobin 11.4 from her baseline around 13 ?Elevated BUN at 36 which could be related to bleeding Iron 50, ferritin 32 Plan: ? Protonix 40 mg IV twice daily -sucralftate 1 g QID ?Bleeding precautions ? GI consulted, pursue recommendations ? Will continue to monitor #Generalized weakness #Failure to thrive #Cachexia #Hx of dementia ??Patient has been having declining her daily activities as she has been unable to walk due to weakness in lower extremities and she has also been having poor oral intake. ? Patient has a history of dementia which could be contributing to her lack of appetite as well as her poor oral intake. ? Patient's granddaughter at bedside stated that she has progressively got more weak in the past few weeks. Plan: ? brexpiprazole 1 mg daily #Sacral wound Superficla thickness wound with dressing. -wound care -HH ordered #Urinary incontinence ? Will place pure wick catheter at this time #Hx of CAD status post stents #Hx of TIA ? Patient is not on any medication at this time Disposition: dc next 24 hrs with Diet:PUD diet GI prophylaxis: protonix DVT prophylaxis: SCDs Code: DNR The patient's management plan was discussed with my attending physician Dr. Bauman. Deyanira Hui, PGY-1 Attending Provider Attestation/Addendum I have discussed and was present for the essential components of the history, physical examination, diagnosis, and treatment plan with the resident. I agree with the patient's care as documented by the resident and amended herein by me. Tima Bauman, DO. Patient seen and evaluated this AM. Vital signs stable, patient afebrile overnight, no acute events overnight. Labs largely unremarkable, hemoglobin stable at 10.2. Patient was very somnolent this morning, possibly secondary to anesthetics or lack of sleep overnight. Patient did undergo EGD which was significant for an esophageal ulcer and gastritis. We will continue the patient on Protonix and will start Carafate. Per the family, the patient has had swallowing difficulties over the past several weeks hence a swallow evaluation has been ordered. Physical therapy did recommend SNF placement however the family refused, wishes to go home with home health which we have ordered for physical therapy and wound care for sacral ulcers that she did arrive with. Wound care is on board here at the hospital. Per gastroenterology, no colonoscopy needed at this time. Likely discharge tomorrow on 09/29 if the patient continues to improve. Plan discussed with the family. Will continue to monitor closely while she is here Although this document has been carefully reviewed, there may still be some phonetic and other typographical errors. These errors are purely grammatical due to imperfections in the software program and should not be construed in any way to compromise the substance of the patient's medical care during this visit.
--- NOTE | 2024-11-29 17:59 | PC.CM ---
Patient is opened to [facility].
--- NOTE | 2024-11-29 18:15 | PD.IMPROG ---
Documentation for date of: 11/29/24 Subjective Subjective Interval history: Patient evaluated upper endoscopy shows gastritis and esophagitis Patient not a candidate for colonoscopy which she needs for further evaluation we will respect patient's daughter's decision as well Exam Vital Signs Temp Pulse Resp BP Pulse Ox O2 Del Method O2 Flow Rate 97.5 F 83 18 129/65 94 L Room Air 3 11/29/24 16:00 11/29/24 16:00 11/29/24 16:00 11/29/24 16:00 11/29/24 16:00 11/29/24 16:00 11/28/24 19:35 Objective Labs 11/29/24 05:09 11/29/24 05:09 Labs: Laboratory Results - last 24 hr 11/29/24 05:09 WBC 7.5 RBC 3.03 L Hgb 10.2 L Hct 30.7 L MCV 101 H MCH 33.7 MCHC 33.2 RDW Std Deviation 46.4 H Plt Count 168 D Neut % (Auto) 72 Lymph % (Auto) 14 [place] % (Auto) 9 Eos % (Auto) 4 Baso % (Auto) 1 Neut # (Auto) 5.4 Lymph # (Auto) 1.1 [place] # (Auto) 0.7 Eos # (Auto) 0.3 Baso # (Auto) 0.0 Immature Gran # (Auto) 0.04 H Absolute Nucleated RBC 0.00 Immature Gran % 1 H Nucleated RBC % 0 Sodium 144 Potassium 4.3 D Chloride 112 H Carbon Dioxide 21.6 Anion Gap 10 BUN 22 Creatinine 1.0 Estim Creat Clear Calc 28.1 L eGFR 54 L BUN/Creatinine Ratio 22 H Glucose 63 L Calculated Osmolality 288 Calcium 8.9 Corrected Calcium 9.6 Magnesium 2.0 Total Bilirubin 0.8 AST 22 ALT 8 L Alkaline Phosphatase 62 Total Protein 5.8 Albumin 3.1 L Globulin 2.7 Albumin/Globulin Ratio 1.1 L Impressions Impression: # Acute anemia blood loss continue current management Assessment & Plan A&P Narrative # Acute GI bleed most likely upper Plan Serial CBC IV Protonix Fiberoptic esophagogastroduodenoscopy with possible biopsy possible therapeutic intervention under intravenous moderate sedation Consent obtained Procedure tentatively scheduled for tomorrow Will follow the patient Time Spent With Patient Time: Total time spent is greater than 50% in coordination of care (as documented) at patient's floor/unit and/or counseling patient:
[2024-11-30] VITALS (9 sets, daily range): BP systolic 113–133; BP diastolic 55–85; PULSE 58–85; RESP 16–95; TEMP 36.3–36.6; O2SAT 95–98
[2024-11-30] MEDS: SUCRALFATE SUSP 1 GM/10 ML UDC PO ×4 (05:41→22:47)
[2024-11-30 05:52] LABS: Basophils % (Auto) 1 % (0-2.5); Eosinophils # (Auto) 0.4 Thou/mm3 (0.0-0.5); Eosinophils % (Auto) 6 % (0-10); Hematocrit 30.9 % (36.0-46.0); Hemoglobin 10.3 g/dL (12.0-16.0); Immature Granulocytes % (Auto) 0 % (0-0); Immature Granulocytes Auto 0.03 Thou/mm3 (0.00-0.00); Lymphocytes # (Auto) 1.4 Thou/mm3 (1.0-4.8); Lymphocytes % (Auto) 20 % (10-50); Mean Corpuscular HGB Conc 33.3 g/dl (31.0-37.0); Mean Corpuscular Hemoglobin 33.4 pg (25.0-35.0); Mean Corpuscular Volume 100 fL (80-100); Monocytes # (Auto) 0.7 Thou/mm3 (0.0-0.8); Monocytes % (Auto) 10 % (0-12); Neutrophils # (Auto) 4.6 Thou/mm3 (1.8-7.7); Neutrophils % (Auto) 64 % (37-80); Nucleated Red Blood Cell % 0 /100 WBC (0); Platelet Count 194 Thou/mm3 (140-440); RDW Standard Deviation 44.3 fL (36.4-46.3); Red Blood Count 3.08 Miln/mm3 (4.00-5.20); White Blood Count 7.3 Thou/mm3 (3.6-11.0)
[2024-11-30 06:32] LABS: Alanine Aminotransferase 8 U/L (10-49); Albumin, Serum 3.1 gm/dL (3.4-4.8); Albumin/Globulin Ratio 1.1 (1.2-2.2); Alkaline Phosphatase 63 U/L (46-116); Anion Gap 10 (7-16); Aspartate Amino Transferase 20 U/L (0-34); BUN/Creatinine Ratio 22 Ratio (12-20); Bilirubin,Total 0.7 mg/dL (0.3-1.2); Blood Urea Nitrogen 22 mg/dL (9-23); Calcium 8.7 mg/dL (8.3-10.6); Calcium (Corrected) 9.4 mg/dL (8.5-10.1); Carbon Dioxide 22.6 mMol/L (20.0-31.0); Chloride 110 mMol/L (98-107); Estimated Creatinine Clearance 28.1 mL/min (>60); Globulin 2.8 gm/dL (2.3-3.5); Glucose 74 mg/dL (74-106); Osmolality,Calculated 287 (275-295); Potassium 3.8 mMol/L (3.4-5.1); Sodium 143 mMol/L (136-145); Total Protein 5.9 gm/dL (5.7-8.2); eGFR 54 See Note
[2024-11-30] MEDS: PANTOPRAZOLE INJ 40 MG VIAL IVP ×2 (08:49→22:46)
--- NOTE | 2024-11-30 11:57 | ESDS_ITS ---
Planned Discharge Date 11/30/24 DS: Providers Provider Date of admission: 11/27/24 18:19 Primary care physician: Physician No Primary/Family Admitting Provider: Miles Bauman DO Attending Provider on Admission: Miles Bauman DO Consults: 11/27/24 14:33 Consult to Gastroenterology Stat Comment: Upper GI bleed Consulting Provider: Sania Henriquez 11/27/24 18:26 Referral Physical Therapy Routine Comment: Physician Instructions: Referral Registered Dietitian Routine Comment: 11/28/24 04:54 Referral Wound Care Stat Comment: 11/29/24 18:27 Referral Speech Therapy Routine Comment: 11/30/24 08:00 Referral - INFRASTRUCTURE SOFTWARE ENGINEER Central Sterilization Technician Routine Comment: garima Villalta Attending Provider on DC: Miles Bauman DO Discharging Provider: Miles Bauman DO DS: Diagnosis Problem List Completed Was Problem List Reviewed/Reconciled?: Yes Hospital Course Hospital Course Hospital course: 89-year-old female with past medical history of dementia, CAD status post 2 stents and TIA was admitted to the hospital on 11/27/2024 due to acute blood loss anemia likely secondary to TIA bleed and failure to thrive. Came in to the ED brought in by her granddaughter who is her medical power of litigation attorney due to progressing weakness, dark stools, decrease in mobility, and urinary and bowel incontinence. Initially patient came in mildly hypertensive and afebrile. Initial labs were relevant for mild leukocytosis (12.8), anemia (11.4), increased BUN (36) which could be due to bleeding, elevated BNP at 326, and UA was negative for bacteria. Initial imaging included chest x-ray which showed some bronchitis pattern, hip/pelvis x-ray which was consistent with osteoporosis of the hips bilaterally, EKG showed sinus rhythm, and abdomen/pelvis CT showed cholelithiasis, colonic diverticulosis, and very large amount of stool in the rectum with thickening of the rectal wall. GI was consulted and did EGD and found the patient to have esophageal ulcers as well as gastritis. GI specialist recommended to continue patient on pantoprazole 40 mg and peptic ulcer diet. Patient's hemoglobin remained stable and given her overall health GI specialist stated that she was not a candidate for colonoscopy. Physical therapy recommended patient to go to a half-way facility, but patient's granddaughter decided to go home with home health after explanation on why half-way facility at this time would be appropriate. Speech therapist saw the patient as well and stated that the patient should be on a dysphagia mechanically soft diet with thickened fluids as well. At the time of discharge patient was stable enough to be discharged back home with home health. Discharge plan: Please follow-up with your primary care physician 1 week after discharge You have been started on amlodipine 5 mg daily, pantoprazole 40 mg daily, and sucralfate 100 mg/mL suspension twice a day. Continue taking your Rexulti 1 mg daily. Recommend maintaining a bland diet and avoiding spicy foods. Please come back to the ER if symptoms persist or worsen. Problem list: #Acute blood loss anemia 2/ #Upper GI bleed #Melena #s/p EGD showing Gastritis #Esophageal ulcer #Generalized weakness #Failure to thrive #Cachexia #Hx of dementia #Sacral wound #Urinary incontinence #Hx of CAD status post stents #Hx of TIA Case disclosed with Attending Dr. Bauman and My senior Dr. Rao PGY3. Jameel Dobson PGY1 Status at Discharge Overall status at discharge: patient is progressing back to baseline Time Spent with Patient Time attestation: Total time spent providing and/or coordinating discharge services:>35 min Home Health Home Health Referral Orders: 11/29/24 10:07 Home Health Referral Routine Reason For Exam: debility Home-Bound The patient must either because of illness or injury, need the aid of supportive devices such as crutches, canes, wheelchairs, and walkers; the use of special transportation; or the assistance of another person in order to leave their place of residence; OR have a condition such that leaving his or her home is medically contraindicated. In addition, the patient also meets the following criteria: patient is normally unable to leave the home and leaving home requires considerable taxing effort. Addendum to Home Health Certification Practitioner's Certification: I certify that the patient has been under my care in the hospital and the care of attending physician (see below). We had a [id number] encounter on (see date below). My clinical findings indicate that the patient is home bound per the above criteria and the Home Health Services noted in these orders are medically necessary. The primary reason for the [id number] encounter is related to the fact that the patient requires home health services. Date Certifying [id number] Physician Encounter: 11/27/24 Physician's Name who will Assume Oversight for Services: Physician No Primary/Family CENTER HUMAN RESOURCES MANAGER - Community Resources: No PT to Evaluate: Yes PT to evaluate and provide a treatmnet plan to increase patient's mobility and strength. Wound Care: Yes: sacral ulcers Home Health RN - Wound Care Order: bandage changes, evaluation IV Therapy: No Discontinue PICC Line Once Treatment Complete: No RN Safety Evaluation: Yes RN to evaluate and create a plan of care that will produce positive outcomes. Palliative Treatment: No Palliative treatment and evaluate the need for hospice. Home Health Aide - Personal Care: No Home Health Aide to assist with any ADL's. Exam Vital Signs Temp Pulse Resp BP Pulse Ox O2 Del Method O2 Flow Rate 97.6 F 73 18 117/60 98 Room Air 3 11/30/24 08:00 11/30/24 08:44 11/30/24 08:00 11/30/24 08:44 11/30/24 08:00 11/30/24 08:00 11/30/24 00:00 Narrative Exam General: A/O x2 (not to time), no acute distress, thin frail elderly female with temporal wasting Eyes: PERRL, EOMI. Anicteric, vision grossly intact. Ears: No ear pain, no ear discharge, Hearing grossly intact. Nose: No nasal discharge. Mouth/Throat: Dry mucous membranes, no redness, no lesions. Neck: Neck supple, non-tender, no cervical lymphadenopathy. Lungs: Clear AUGUSTINE to auscultation and percussion, No accessory muscle use. Cardio: Normal S1/S2, regular rhythm, no murmurs, no JVD Abdomen: Soft, non-tender, no palpable masses, peristalsis present, no guarding or rebound. Extremities: Symmetrical, no significant deformities, no peripheral edema , non-tender, peripheral pulses presents. Skin: No rashes, no lesions, warm to touch. Neuro: No focal neurological deficits. motor strength AUGUSTINE LE 3/5 and UE 4/5 Discharge Plan Plan Patient Disposition: Home w/HOME HEALTH Care Plan Goals: Please follow-up with your primary care physician 1 week after discharge You have been started on amlodipine 5 mg daily, pantoprazole 40 mg daily, and sucralfate 100 mg/mL suspension twice a day. Continue taking your Rexulti 1 mg daily. Recommend maintaining a bland diet and avoiding spicy foods. Please come back to the ER if symptoms persist or worsen. Prescriptions/Referrals Prescriptions/Med Rec: New pantoprazole [Protonix] 40 mg tablet,delayed release (DR/EC) 40 mg PO QDAY Qty: 30 0RF amlodipine 5 mg tablet 5 mg PO QDAY Qty: 30 0RF sucralfate 100 mg/mL suspension 10 ml PO BID Qty: 500 0RF Continued Rexulti 1 mg tablet Patient Comments: TAKE 1 TABLET BY MOUTH EVERY DAY Referrals: Clark Ruelas MD [Physician] - No Primary/Family,Physician [Primary Care Provider] - Patient/Caregiver Discharge Instructions Other Discharge Activity Instructions:: Please follow-up with your primary care physician 1 week after discharge You have been started on amlodipine 5 mg daily, pantoprazole 40 mg daily, and sucralfate 100 mg/mL suspension twice a day. Continue taking your Rexulti 1 mg daily. Recommend maintaining a bland diet and avoiding spicy foods. Please come back to the ER if symptoms persist or worsen. Education Materials: Esophagitis, Esophageal Ulcer, Discharge Instructions- Eating ... Print Language: Hong Konger Stand Alone Forms: [employer] Showcase Info., Patient Portal Info Letter Discharge Order Discharge Orders: Discharge (Routine); Ordered 11/30/24 Ordered By: Jameel Dobson Quality Discharge Quality Measures VTE prophylaxis
--- NOTE | 2024-11-30 14:54 | PC.SS ---
Addendum entered by Gabriel Romero 11/30/24 17:15: Uploaded appeal documentation Original Note: SS notified medical team of appeal SS learned Vega called for appeal [id number] SS spoke with HERNAN Ferrari, for pt provied medicare information
--- NOTE | 2024-11-30 19:18 | PD.IMPROG ---
Documentation for date of: 11/30/24 Subjective Subjective Interval history: Patient evaluated hemoglobin hematocrit 11.3 and 30.9 upper endoscopy showed distal esophageal ulcer gastritis and esophagitis patient not a candidate for further evaluation via fiberoptic colonoscopy Exam Vital Signs Temp Pulse Resp BP Pulse Ox O2 Del Method O2 Flow Rate 97.8 F 66 18 133/59 H 95 Room Air 3 11/30/24 16:00 11/30/24 16:00 11/30/24 16:00 11/30/24 16:00 11/30/24 16:00 11/30/24 16:00 11/30/24 00:00 Objective Labs 11/30/24 04:29 11/30/24 04:29 Labs: Laboratory Results - last 24 hr 11/30/24 04:29 WBC 7.3 RBC 3.08 L Hgb 10.3 L Hct 30.9 L MCV 100 MCH 33.4 MCHC 33.3 RDW Std Deviation 44.3 Plt Count 194 Neut % (Auto) 64 Lymph % (Auto) 20 [place] % (Auto) 10 Eos % (Auto) 6 Baso % (Auto) 1 Neut # (Auto) 4.6 Lymph # (Auto) 1.4 [place] # (Auto) 0.7 Eos # (Auto) 0.4 Baso # (Auto) 0.0 Immature Gran # (Auto) 0.03 H Absolute Nucleated RBC 0.00 Immature Gran % 0 Nucleated RBC % 0 Sodium 143 Potassium 3.8 D Chloride 110 H Carbon Dioxide 22.6 Anion Gap 10 BUN 22 Creatinine 1.0 Estim Creat Clear Calc 28.1 L eGFR 54 L BUN/Creatinine Ratio 22 H Glucose 74 Calculated Osmolality 287 Calcium 8.7 Corrected Calcium 9.4 Magnesium 2.0 Total Bilirubin 0.7 AST 20 ALT 8 L Alkaline Phosphatase 63 Total Protein 5.9 Albumin 3.1 L Globulin 2.8 Albumin/Globulin Ratio 1.1 L Impressions Impression: Distal esophageal ulcer Gastritis Esophagitis Continue current management Assessment & Plan A&P Narrative # Acute GI bleed most likely upper Plan Serial CBC IV Protonix Fiberoptic esophagogastroduodenoscopy with possible biopsy possible therapeutic intervention under intravenous moderate sedation Consent obtained Procedure tentatively scheduled for tomorrow Will follow the patient Time Spent With Patient Time: Total time spent is greater than 50% in coordination of care (as documented) at patient's floor/unit and/or counseling patient:
[2024-12-01] VITALS (9 sets, daily range): BP systolic 108–145; BP diastolic 53–76; PULSE 61–85; RESP 15–22; TEMP 36–37.1; O2SAT 95–98; BMI 11.0
[2024-12-01] MEDS: SUCRALFATE SUSP 1 GM/10 ML UDC PO ×4 (06:27→20:42)
[2024-12-01] MEDS: PANTOPRAZOLE INJ 40 MG VIAL IVP ×2 (08:15→20:45)
--- NOTE | 2024-12-01 13:21 | ESPR_ITS ---
<Statement entered by Leatha Rao MD - 12/01/24 14:13> I discussed with and supervised my co-resident involved in the care of this patient. I agree with the assessment and plan as documented above. Patient doing well this morning. No acute events. Pending appeal home vs SNF. Leatha Rao MD PGY-3 Documentation for date of: 12/01/24 Subjective Subjective Interval history: Patient was seen at bedside this morning. No overnight events. Patient's granddaughter appealed discharge therefore patient's discharge will be delayed at this time. From medical standpoint patient has stable to be discharged. Exam Vital Signs Temp Pulse Resp BP Pulse Ox O2 Del Method O2 Flow Rate 96.8 F 72 22 H 121/76 97 Room Air 3 12/01/24 12:00 12/01/24 12:00 12/01/24 12:00 12/01/24 12:00 12/01/24 12:12/01/24 12:12/01/24 04:00 Narrative Exam General: A/O x2 (not to time), no acute distress, thin frail elderly female with temporal wasting Eyes: PERRL, EOMI. Anicteric, vision grossly intact. Ears: No ear pain, no ear discharge, Hearing grossly intact. Nose: No nasal discharge. Mouth/Throat: Dry mucous membranes, no redness, no lesions. Neck: Neck supple, non-tender, no cervical lymphadenopathy. Lungs: Clear AUGUSTINE to auscultation and percussion, No accessory muscle use. Cardio: Normal S1/S2, regular rhythm, no murmurs, no JVD Abdomen: Soft, non-tender, no palpable masses, peristalsis present, no guarding or rebound. Extremities: Symmetrical, no significant deformities, no peripheral edema , non-tender, peripheral pulses presents. Skin: No rashes, no lesions, warm to touch. Neuro: No focal neurological deficits. motor strength AUGUSTINE LE 3/5 and UE 4/5 Objective Labs 11/30/24 04:29 11/30/24 04:29 Quality Measures Quality Measures VTE prophylaxis Advance care planning discussed with:: patient Assessment & Plan Assessment Current Active Medications: Generic Name Dose Route Start Last Admin Trade Name Freq PRN Reason Stop Dose Admin Acetaminophen 650 mg 11/28/24 09:43 Acetaminophen 325 Mg Tablet PO 12/27/24 18:18 Q6H PRN pain and Fever >100.4 Hydrocodone Bitart/Acetaminophen 1 tab 11/27/24 18:19 Hydrocodone/Apap 5/325 Tablet PO 12/02/24 18:18 Q4HR PRN PAIN SCALE 4-10(Mod-Sev Amlodipine Besylate 5 mg 11/28/24 09:00 12/01/24 08:17 Amlodipine Besylate 5 Mg Tablet PO 12/28/24 08:59 Not Given QDAY MARIANA Brexpiprazole 1mg 0 ea 11/28/24 21:00 11/30/24 22:48 Tablet PO 12/28/24 20:59 1 tablet HS MARIANA Administration Ondansetron HCl 4 mg 11/27/24 18:19 Ondansetron Inj 2 Mg/Ml Inj 2 Ml IV 12/27/24 18:18 Q6H PRN NAUSEA OR VOMITING Protocol Pantoprazole Sodium 40 mg 11/28/24 09:00 12/01/24 08:15 Pantoprazole Inj 40 Mg Vial IVP 12/28/24 08:59 40 mg BID MARIANA Administration Sucralfate 1 gm 11/29/24 12:00 12/01/24 11:21 Sucralfate Susp 1 Gm/10 Ml Udc PO 12/29/24 11:59 1 gm QID MARIANA Administration Plan 89-year-old female with past medical history of dementia, CAD status post 2 stents and TIA was admitted to the hospital on 11/27/2024 due to acute blood loss anemia likely secondary to TIA bleed and failure to thrive. #Acute blood loss anemia #Upper GI bleed #Melena #Gastritis #Esophageal ulcer ?Patient came in with complaints of dark stools ? DDx lower GI bleed given CT imaging of proctitis which could be due to malignancy versus upper GI bleed ?FOBT positive ? Hemoglobin 11.4 from her baseline around 13 ?Elevated BUN at 36 which could be related to bleeding Iron 50, ferritin 32 ?EGD on 11/28/2024 showed gastritis and esophageal ulcers Plan: ? Protonix 40 mg IV twice daily - sucralftate 1 g QID ?Bleeding precautions ? GI consulted, pursue recommendations ? Will continue to monitor #Generalized weakness #Failure to thrive #Cachexia #Hx of dementia ??Patient has been having declining her daily activities as she has been unable to walk due to weakness in lower extremities and she has also been having poor oral intake. ? Patient has a history of dementia which could be contributing to her lack of appetite as well as her poor oral intake. ? Patient's granddaughter at bedside stated that she has progressively got more weak in the past few weeks. Plan: ? brexpiprazole 1 mg daily ?Physical therapy and registered dietitian ordered #Hypertension Continue amlodipine 5 mg daily #Sacral wound Superficial thickness wound with dressing. -wound care -HH ordered #Urinary incontinence ? Will continuepure wick catheter at this time #Hx of CAD status post stents #Hx of TIA ? Patient is not on any medication at this time Disposition: Patient appealed discharge. Diet: Dysphagia 2+ Ensure Plus high-protein GI prophylaxis: protonix DVT prophylaxis: SCDs Code: DNR Case disclosed with Attending Dr. Bauman and My senior Dr. Rao PGY3. Jameel Dobson PGY1 Attending Provider Attestation/Addendum I have discussed and was present for the essential components of the history, physical examination, diagnosis, and treatment plan with the resident. I agree with the patient's care as documented by the resident and amended herein by me. Tima Bauman, DO. Patient seen and evaluated this AM. Patient stable for discharge, however granddaughter has appealed discharge, should be cleared by tomorrow at noon. The patient's granddaughter who is the power of title attorney is considering SNF at this point however no definitive decision has been made. The patient is doing well this morning, will continue Protonix and Carafate at this time, patient cleared for discharge by gastroenterology. Likely discharge tomorrow 12/02 to either SNF or home, I have put home health orders in for wound care and physical therapy. Will continue monitor closely while she is here. Although this document has been carefully reviewed, there may still be some phonetic and other typographical errors. These errors are purely grammatical due to imperfections in the software program and should not be construed in any way to compromise the substance of the patient's medical care during this visit.
--- NOTE | 2024-12-01 13:57 | PC.SS ---
Addendum entered by Mary Jo Chou 12/01/24 15:52: Booked [facility] via [facility] Addendum entered by Mary Jo Chou 12/01/24 15:44: SS spoke to Vega in 3rd floor waiting area to discuss DC planning and SNF choice. Vega has decided to Transition pt to SNF for rehab with [facility]. SS spoke to Maria Ines and informed her of pt choice. Maria Ines stated she can accept pot tomorrow 12/02. Addendum entered by Mary Jo Chou 12/01/24 15:07: SS spoke to Vega, she is between [facility] and [facility]. She stated she would call back when she speaks to the pt ad has a choice Original Note: SS spoke to ryleemac Ferrari who stated she is touring facilities today and she will get back to SS with an answer soon. She prefers no one from facilities speaks to pt as she is the one touring and making the decision
--- NOTE | 2024-12-01 15:52 | PC.SS ---
PASSR submitted and downloaded LVL1
--- NOTE | 2024-12-01 17:53 | PD.IMPROG ---
Documentation for date of: 12/01/24 Subjective Subjective Interval history: Patient evaluated Hemoglobin hematocrit 10.3 and 30.9 Upper endoscopy showed distal esophageal ulcer gastritis and esophagitis Exam Vital Signs Temp Pulse Resp BP Pulse Ox O2 Del Method O2 Flow Rate 97.2 F 82 20 145/73 H 98 Room Air 3 12/01/24 15:53 12/01/24 16:00 12/01/24 15:53 12/01/24 15:53 12/01/24 15:53 12/01/24 15:53 12/01/24 04:00 Objective Labs 11/30/24 04:29 11/30/24 04:29 Impressions Impression: Distal esophageal ulcer Gastritis Esophagitis Anemia blood loss Continue to monitor CBC Assessment & Plan A&P Narrative # Acute GI bleed most likely upper Plan Serial CBC IV Protonix Fiberoptic esophagogastroduodenoscopy with possible biopsy possible therapeutic intervention under intravenous moderate sedation Consent obtained Procedure tentatively scheduled for tomorrow Will follow the patient Time Spent With Patient Time: Total time spent is greater than 50% in coordination of care (as documented) at patient's floor/unit and/or counseling patient:
[2024-12-02] VITALS (10 sets, daily range): BP systolic 111–126; BP diastolic 51–64; PULSE 57–69; RESP 16–23; TEMP 36.2–36.6; O2SAT 95–98
[2024-12-02] MEDS: amLODIPine BESYLATE 5 MG TABLET PO (08:09)
[2024-12-02] MEDS: PANTOPRAZOLE INJ 40 MG VIAL IVP ×2 (08:10→21:00)
--- NOTE | 2024-12-02 08:42 | PC.CC ---
[id number] Phys[facility] Review Completed . Anticipate outcome to be available later today.
--- NOTE | 2024-12-02 11:17 | PC.SS ---
Addendum entered by Anh Macario 12/02/24 13:12: SS follow up note; SS contacted patient;s grand daughter, Vega and she informed SS that 's were wanting to hold off on the discharge until possibly later in the evening. SS contacted [employer] the transportation agency that was assigned and they reported they are not able to transport the patient after 4PM. SS contacted [facility] and they reported they will assign a different transportation agency. Original Note: SS follow up note; SS met with patient's daughter, Vega and she reported that patient is able to discharge today, however would like Dr'krista to speak to her before discharge. [id number].
[2024-12-02] MEDS: SUCRALFATE SUSP 1 GM/10 ML UDC PO ×3 (12:22→20:59)
--- NOTE | 2024-12-02 13:15 | ESPR_ITS ---
<Statement entered by Leatha Rao MD - 12/02/24 15:40> I discussed with and supervised my co-resident involved in the care of this patient. I agree with the assessment and plan as documented above. Patient seen and examined at bedside. She is more sleepy today. Per granddaugther, patient is more altered after recieving amlodpine. Amlodipine 5mg discontinued. Blood pressure stable. Will reassess mentation later. Delirium precautions. Pending appeal, HH versus SNF. Patient to be discharged with sucralfate and protonix, meds reviewed with family at bedside. Leatha Rao MD PGY-3 Documentation for date of: 12/02/24 Subjective Subjective Interval history: Patient was seen at bedside this morning. No overnight's. Patient was resting peacefully in bed, but patient's granddaughter stated that she was more drowsy since she was started on the amlodipine. Patient was reassessed afterwards and she was AO x 2 and stated that she was kind of sleepy. Discontinue amlodipine. Will monitor patient and await improvement in drowsiness before discharging. Exam Vital Signs Temp Pulse Resp BP Pulse Ox O2 Del Method O2 Flow Rate 97.1 F 59 L 18 118/51 L 96 Nasal Cannula 1 12/02/24 08:00 12/02/24 10:46 12/02/24 08:00 12/02/24 08:09 12/02/24 08:00 12/02/24 08:00 12/02/24 08:00 Narrative Exam General: A/O x2 (not to time), no acute distress, thin frail elderly female with temporal wasting Eyes: PERRL, EOMI. Anicteric, vision grossly intact. Ears: No ear pain, no ear discharge, Hearing grossly intact. Nose: No nasal discharge. Mouth/Throat: Dry mucous membranes, no redness, no lesions. Neck: Neck supple, non-tender, no cervical lymphadenopathy. Lungs: Clear AUGUSTINE to auscultation and percussion, No accessory muscle use. Cardio: Normal S1/S2, regular rhythm, no murmurs, no JVD Abdomen: Soft, non-tender, no palpable masses, peristalsis present, no guarding or rebound. Extremities: Symmetrical, no significant deformities, no peripheral edema , non-tender, peripheral pulses presents. Skin: No rashes, no lesions, warm to touch. Neuro: No focal neurological deficits. motor strength AUGUSTINE LE 3/5 and UE 4/5 Objective Labs 11/30/24 04:29 11/30/24 04:29 Quality Measures Quality Measures VTE prophylaxis Advance care planning discussed with:: patient and legal surragate Assessment & Plan Assessment Current Active Medications: Generic Name Dose Route Start Last Admin Trade Name Freq PRN Reason Stop Dose Admin Acetaminophen 650 mg 11/28/24 09:43 Acetaminophen 325 Mg Tablet PO 12/27/24 18:18 Q6H PRN pain and Fever >100.4 Hydrocodone Bitart/Acetaminophen 1 tab 11/27/24 18:19 Hydrocodone/Apap 5/325 Tablet PO 12/02/24 18:18 Q4HR PRN PAIN SCALE 4-10(Mod-Sev Brexpiprazole 1mg 0 ea 11/28/24 21:00 12/01/24 20:44 Tablet PO 12/28/24 20:59 1 tablet HS MARIANA Administration Ondansetron HCl 4 mg 11/27/24 18:19 Ondansetron Inj 2 Mg/Ml Inj 2 Ml IV 12/27/24 18:18 Q6H PRN NAUSEA OR VOMITING Protocol Pantoprazole Sodium 40 mg 11/28/24 09:00 12/02/24 08:10 Pantoprazole Inj 40 Mg Vial IVP 12/28/24 08:59 40 mg BID MARIANA Administration Sucralfate 1 gm 11/29/24 12:00 12/02/24 12:22 Sucralfate Susp 1 Gm/10 Ml Udc PO 12/29/24 11:59 1 gm QID MARIANA Administration Plan 89-year-old female with past medical history of dementia, CAD status post 2 stents and TIA was admitted to the hospital on 11/27/2024 due to acute blood loss anemia likely secondary to TIA bleed and failure to thrive. #Acute blood loss anemia #Upper GI bleed #Melena #Gastritis #Esophageal ulcer ?Patient came in with complaints of dark stools ? DDx lower GI bleed given CT imaging of proctitis which could be due to malignancy versus upper GI bleed ?FOBT positive ? Hemoglobin 11.4 from her baseline around 13 ?Elevated BUN at 36 which could be related to bleeding Iron 50, ferritin 32 ?EGD on 11/28/2024 showed gastritis and esophageal ulcers Plan: ? Protonix 40 mg IV twice daily - sucralftate 1 g QID ?Bleeding precautions ? GI consulted, pursue recommendations ? Will continue to monitor #Generalized weakness #Failure to thrive #Cachexia #Hx of dementia ??Patient has been having declining her daily activities as she has been unable to walk due to weakness in lower extremities and she has also been having poor oral intake. ? Patient has a history of dementia which could be contributing to her lack of appetite as well as her poor oral intake. ? Patient's granddaughter at bedside stated that she has progressively got more weak in the past few weeks. Plan: ? brexpiprazole 1 mg daily ?Physical therapy and registered dietitian ordered #Hypertension -Discontinue amlodipine 5 mg daily #Sacral wound Superficial thickness wound with dressing. -wound care - ordered #Urinary incontinence ? Will continue pure wick catheter at this time #Hx of CAD status post stents #Hx of TIA ? Patient is not on any medication at this time Disposition: Patient more drowsy today, will monitor closely.. Diet: Dysphagia 2+ Ensure Plus high-protein GI prophylaxis: protonix DVT prophylaxis: SCDs Code: DNR Case disclosed with Attending Dr. Amado and My senior Dr. Rao PGY3. Jameel Dobson PGY1 Attending Provider Attestation/Addendum I reviewed labs, imaging, EKG, home medications and prior available records. Face to face evaluation was performed by me. I have personally examined the patient and discussed assessment and plan with the IM team. I reviewed the resident note and agree with the plan with exceptions as below. Acute blood loss anemia Esophageal ulcer Gastritis without bleed Dementia Essential hypertension Failure to thrive in adult Debility Continue PPI twice daily Peptic ulcer diet Stop amlodipine per granddaughter's request Plan to go to SNF
--- NOTE | 2024-12-02 14:46 | PC.SS ---
Addendum entered by Anh Macario 12/02/24 16:05: SS follow up note; Jeanine Physician agrees with termination of services. SS contacted patient's grand daughter, Vega. Original Note: SS was contacted by patient's grand daughter, Vega and she informed SS that she would like patient to discharge tomorrow and that she would like to wait for the appeal determination. SS contacted Dr. Amado and updated him in regards to patient's daughters concern. SS contacted [facility] to cancel transportation.
--- NOTE | 2024-12-02 21:47 | PD.IMPROG ---
Documentation for date of: 12/02/24 Subjective Subjective Interval history: Hemoglobin hematocrit 10.3 and 30.9 No evidence of any active bleeding at this time Exam Vital Signs Temp Pulse Resp BP Pulse Ox O2 Del Method O2 Flow Rate 97.9 F 62 23 H 113/63 98 Room Air 1 12/02/24 20:00 12/02/24 20:00 12/02/24 20:00 12/02/24 20:00 12/02/24 20:00 12/02/24 20:00 12/02/24 12:00 Objective Labs 11/30/24 04:29 11/30/24 04:29 Impressions Impression: # Acute GI bleed hemoglobin hematocrit stable at the moment Continue current management Assessment & Plan A&P Narrative # Acute GI bleed most likely upper Plan Serial CBC IV Protonix Fiberoptic esophagogastroduodenoscopy with possible biopsy possible therapeutic intervention under intravenous moderate sedation Consent obtained Procedure tentatively scheduled for tomorrow Will follow the patient Time Spent With Patient Time: Total time spent is greater than 50% in coordination of care (as documented) at patient's floor/unit and/or counseling patient:
[2024-12-03] VITALS: BP 108/48; PULSE 56; PULSE 60; RESP 15; TEMP 36.4; O2SAT 98
[2024-12-03 04:00] VITALS: BP 123/56; PULSE 62; RESP 16; TEMP 36.2; O2SAT 97
[2024-12-03] MEDS: SUCRALFATE SUSP 1 GM/10 ML UDC PO ×2 (05:17→12:32)
[2024-12-03 08:00] VITALS: BP 111/53; PULSE 56; RESP 17; TEMP 36.4; O2SAT 98
[2024-12-03] MEDS: PANTOPRAZOLE INJ 40 MG VIAL IVP (08:17)
--- NOTE | 2024-12-03 09:39 | PC.SS ---
Addendum entered by Sallie Pineda [facility] 12/03/24 14:40: Updated patient's family, Vega Mcgarry. Addendum entered [facility] 12/03/24 14:39: [facility] called, they moved ETA to 1600. Updated bedside nurse and SNF staff Radha at [facility] [[email or web address] Addendum entered by Sallie Pineda [facility] 12/03/24 11:58: [facility] ETA soonest is 1400. Updated bed side nurse Neelam and [facility] [[email or web address] staff Radha including the patient's daughter Vega. Addendum entered by Sallie Pineda [facility] 12/03/24 11:11: Updated patient's daughter Vega, she is ok with waiting for ambulance transport. Addendum entered by Sallie Pineda [facility] 12/03/24 11:08: SS update: [facility] is still pending ETA. Contacted them to let them know patient is ready now. Addendum entered by Sallie Pineda [facility] 12/03/24 09:47: SS update: Radha at [facility] is ready to accept the patient today. [facility] transportation arranged. Reference number: [id number]. Pending transport ETA. Updated bed side nurse. Original Note: SS follow up: spoke with patient's daughter Vega to confirm the d/c plan to [facility]. Vega is aware of the [employer] Appeal outcome. Vega is requesting to speak to Franco Retana to file a complaint regarding medication administration. Vega is requesting to receive patient's medical records. SS to notify Franco Retana of the request and provide Vega with medical records contact information.
[2024-12-03 09:49] VITALS: PULSE 61
--- NOTE | 2024-12-03 10:01 | PD.IMPROG ---
Documentation for date of: 12/03/24 Subjective Subjective Interval history: Patient evaluated Hemoglobin hematocrit 10.3 and 30.9 Case discussed with internal medicine team is okay to discharge the patient on a PPI Exam Vital Signs Temp Pulse Resp BP Pulse Ox O2 Del Method O2 Flow Rate 97.5 F 61 17 111/53 L 98 Room Air 1 12/03/24 08:00 12/03/24 09:49 12/03/24 08:00 12/03/24 08:00 12/03/24 08:00 12/03/24 08:00 12/02/24 12:00 Objective Labs 11/30/24 04:29 11/30/24 04:29 Impressions Impression: Esophageal ulcer gastritis esophagitis Plan As under HPI Assessment & Plan A&P Narrative # Acute GI bleed most likely upper Plan Serial CBC IV Protonix Fiberoptic esophagogastroduodenoscopy with possible biopsy possible therapeutic intervention under intravenous moderate sedation Consent obtained Procedure tentatively scheduled for tomorrow Will follow the patient Time Spent With Patient Time: Total time spent is greater than 50% in coordination of care (as documented) at patient's floor/unit and/or counseling patient:
--- NOTE | 2024-12-03 10:17 | ESDS_ITS ---
Planned Discharge Date 12/03/24 DS: Providers Provider Date of admission: 11/27/24 18:19 Primary care physician: Physician No Primary/Family Admitting Provider: Miles Bauman DO Attending Provider on Admission: Miles Bauman DO Consults: 11/27/24 14:33 Consult to Gastroenterology Stat Comment: Upper GI bleed Consulting Provider: Sania Henriquez 11/27/24 18:26 Referral Physical Therapy Routine Comment: Physician Instructions: Referral Registered Dietitian Routine Comment: 11/28/24 04:54 Referral Wound Care Stat Comment: 11/29/24 18:27 Referral Speech Therapy Routine Comment: 11/30/24 08:00 Referral - [employer] Routine Comment: garima Villalta Attending Provider on DC: Dorian Amado MD Discharging Provider: Dorian Amado MD DS: Diagnosis Problem List Completed Was Problem List Reviewed/Reconciled?: Yes Hospital Course Hospital Course Hospital course: 89-year-old female with past medical history of dementia, CAD status post 2 stents and TIA was admitted to the hospital on 11/27/2024 due to acute blood loss anemia likely secondary to TIA bleed and failure to thrive. Came in to the ED brought in by her granddaughter who is her medical power of contract attorney due to progressing weakness, dark stools, decrease in mobility, and urinary and bowel incontinence. Initially patient came in mildly hypertensive and afebrile. Initial labs were relevant for mild leukocytosis (12.8), anemia (11.4), increased BUN (36) which could be due to bleeding, elevated BNP at 326, and UA was negative for bacteria. Initial imaging included chest x-ray which showed some bronchitis pattern, hip/pelvis x-ray which was consistent with osteoporosis of the hips bilaterally, EKG showed sinus rhythm, and abdomen/pelvis CT showed cholelithiasis, colonic diverticulosis, and very large amount of stool in the rectum with thickening of the rectal wall. GI was consulted and did EGD and found the patient to have esophageal ulcers as well as gastritis. GI specialist recommended to continue patient on pantoprazole 40 mg and peptic ulcer diet. Patient's hemoglobin remained stable and given her overall health GI specialist stated that she was not a candidate for colonoscopy. Physical therapy recommended patient to go to a alf facility, but patient's granddaughter decided to go home with home health after explanation on why alf facility at this time would be appropriate. Speech therapist saw the patient as well and stated that the patient should be on a dysphagia mechanically soft diet with thickened fluids as well. Patient was started on amlodipine 5 mg as her blood pressure was pretty elevated in the evening of 11/28/2024 and was in the 150s to 160s. This helped control the patient's blood pressure, but on 12/02/2024 patient was a little bit more drowsy even though her blood pressure was stable and she was not hypotensive. Patient's granddaughter at this time stated that she would like amlodipine not to be given. Patient's hospital stay was delayed given that patient's family members appealed discharge on 11/30/2024, but at this time they are okay to discharge the patient to a alf facility rather than going home with home health as they had initially stated in the past. At the time of discharge patient was stable enough to be discharged to the alf facility. Discharge plan: Please follow-up with your primary care physician 1 week after discharge You have been started on pantoprazole 40 mg daily and sucralfate 100 mg/mL suspension twice a day. Continue taking your Rexulti 1 mg daily. Recommend maintaining a bland diet and avoiding spicy foods. Please come back to the ER if symptoms persist or worsen. Problem list: #Acute blood loss anemia #Upper GI bleed #Melena #Gastritis #Esophageal ulcer #Generalized weakness #Failure to thrive #Cachexia #Hypertension #Hx of dementia #Sacral wound #Urinary incontinence #Hx of CAD status post stents #Hx of TIA Case disclosed with Attending Dr. Amado and My senior Dr. Rao PGY3. Jameel Dobson PGY1 Status at Discharge Overall status at discharge: patient is progressing back to baseline Time Spent with Patient Time attestation: Total time spent providing and/or coordinating discharge services:>35 min Exam Vital Signs Temp Pulse Resp BP Pulse Ox O2 Del Method O2 Flow Rate 97.5 F 61 17 111/53 L 98 Room Air 1 12/03/24 08:00 12/03/24 09:49 12/03/24 08:00 12/03/24 08:00 12/03/24 08:00 12/03/24 08:00 12/02/24 12:00 Narrative Exam General: A/O x2 (not to time), no acute distress, thin frail elderly female with temporal wasting Eyes: PERRL, EOMI. Anicteric, vision grossly intact. Ears: No ear pain, no ear discharge, Hearing grossly intact. Nose: No nasal discharge. Mouth/Throat: Dry mucous membranes, no redness, no lesions. Neck: Neck supple, non-tender, no cervical lymphadenopathy. Lungs: Clear AUGUSTINE to auscultation and percussion, No accessory muscle use. Cardio: Normal S1/S2, regular rhythm, no murmurs, no JVD Abdomen: Soft, non-tender, no palpable masses, peristalsis present, no guarding or rebound. Extremities: Symmetrical, no significant deformities, no peripheral edema , non-tender, peripheral pulses presents. Skin: No rashes, no lesions, warm to touch. Neuro: No focal neurological deficits. motor and sensory intact, strength improving. Discharge Plan Plan Patient Disposition: [facility] (SNF) Care Plan Goals: Please follow-up with your primary care physician in 1 week after discharge You have been started on pantoprazole 40 mg daily, and sucralfate 100 mg/mL suspension twice a day. Continue taking your Rexulti 1 mg daily. Recommend maintaining a bland diet and avoiding spicy foods. Please come back to the ER if symptoms persist or worsen. Prescriptions/Referrals Prescriptions/Med Rec: New pantoprazole [Protonix] 40 mg tablet,delayed release (DR/EC) 40 mg PO QDAY Qty: 30 0RF sucralfate 100 mg/mL suspension 10 ml PO BID Qty: 500 0RF Continued Rexulti 1 mg tablet Patient Comments: TAKE 1 TABLET BY MOUTH EVERY DAY Referrals: Clark Ruelas MD [Physician] - No Primary/Family,Physician [Primary Care Provider] - Patient/Caregiver Discharge Instructions Other Discharge Activity Instructions:: Please follow-up with your primary care physician 1 week after discharge You have been started on pantoprazole 40 mg daily, and sucralfate 100 mg/mL suspension twice a day. Continue taking your Rexulti 1 mg daily. Recommend maintaining a bland diet and avoiding spicy foods. Please come back to the ER if symptoms persist or worsen. Education Materials: Esophagitis, Esophageal Ulcer, Discharge Instructions- Eating ... Print Language: Lao Stand Alone Forms: Anais Award Info., Patient Portal Info Letter Discharge Order Discharge Orders: Discharge (Routine); Ordered 12/03/24 Ordered By: Jameel Dobson Quality Discharge Quality Measures VTE prophylaxis Attestestation Attestation I reviewed labs, imaging, EKG, home medications and prior available records. Face to face evaluation was performed by me. I have personally examined the patient and discussed assessment and plan with the IM team. I reviewed the resident note and agree with the plan with exceptions as below. Acute blood loss anemia Esophageal ulcer Gastritis without bleed Dementia Essential hypertension Failure to thrive in adult Debility Continue PPI and sucralfate Peptic ulcer diet Stop amlodipine per granddaughter's request Continue Rexulti Patient is going to SNF Time spent is 40 minutes. More than 50% of the time was spent on patient education and coordination of care.
[2024-12-03 12:00] VITALS: BP 120/56; PULSE 63; RESP 17; TEMP 36.5; O2SAT 95
--- NOTE | 2024-12-03 15:32 | PC.NURSE ---
sent pt's own brexpeprazole with herac
== END 2024-12-03 15:15 | disposition skilled nursing facility (03) | DRG 381 ==
LOC: SERX 17:46 → SERHOLD 18:33 → S3NX 22:03
PROVIDERS: Nurse Practitioner Family; Specialist; Admitting Provider Student in an Organized Health Care Education/Training Program; Emergency Provider Emergency Medicine; Visit Provider Student in an Organized Health Care Education/Training Program
PROC: 0DJ08ZZ Inspection of Upper Intestinal Tract, Via Natural or Artificial Opening Endoscopic (ICD-10-PCS; CPT 43239; principal; 2024-11-28 19:00)
DX: K22.11 Ulcer of esophagus with bleeding (principal); D62 Acute posthemorrhagic anemia; R64 Cachexia; Z68.1 Body mass index [BMI] 19.9 or less, adult; K29.71 Gastritis, unspecified, with bleeding; F03.90 Unspecified dementia, unspecified severity, without behavioral disturbance, psychotic disturbance, mood disturbance, and anxiety; I25.10 Atherosclerotic heart disease of native coronary artery without angina pectoris; R62.7 Adult failure to thrive; I10 Essential (primary) hypertension; R32 Unspecified urinary incontinence; R31.9 Hematuria, unspecified; R26.2 Difficulty in walking, not elsewhere classified; R53.1 Weakness; K80.20 Calculus of gallbladder without cholecystitis without obstruction; K57.31 Diverticulosis of large intestine without perforation or abscess with bleeding; M81.0 Age-related osteoporosis without current pathological fracture; Z66 Do not resuscitate; R63.0 Anorexia; Z95.5 Presence of coronary angioplasty implant and graft; Z86.73 Personal history of transient ischemic attack (TIA), and cerebral infarction without residual deficits; Z79.899 Other long term (current) drug therapy; Z79.02 Long term (current) use of antithrombotics/antiplatelets; Z90.710 Acquired absence of both cervix and uterus
CPT/HCPCS: 36415; 71045; 73502; 74177; 80053; 81001; 82728; 83540; 83550; 83735; 83880; 84484; 85025; 85046; 85610; 85730; 87811; 92526; 92610; 93005; 93225; 96361; 96374; 97162; 99285; A4217; A4649; J1630; J2250; J2470; J3010; J7030; Q9967; A9270

== ENCOUNTER 2024-12-21 12:34 | Inpatient (IN) | payer MEDICARE, MEDICAID, SELFPAY ==
[2024-12-21] VITALS (9 sets, daily range): BP systolic 110–146; BP diastolic 53–78; PULSE 62–104; RESP 17–24; TEMP 36.4–38.3; O2SAT 96–100; BMI 19.1
--- NOTE | 2024-12-21 13:03 | XR_ITS ---
EXAMINATION: XR chest 1V ORDERING PROVIDER: Frances Regan NP HISTORY: FEVER TECHNIQUE: Single portable AP radiograph of the chest. COMPARISON: 11/27/2024, portable chest radiograph FINDINGS: Lines and Tubes: Overlying monitoring leads. Lungs: Similar biapical scarring and pleural thickening. Hyperinflated. Pleura: No large pneumothorax or pleural effusion. Cardiomediastinal Silhouette: Uncoiled aorta. Coronary artery stents. Heavy calcifications of the vasculature including aorta. Soft Tissues/Bones: Diffuse osteopenia. Scoliotic curvature similar to prior. IMPRESSION: Emphysematous changes without acute pulmonary findings.
--- NOTE | 2024-12-21 13:07 | PD.EDGIBLD ---
ED GI Bleed RME/HPI General Chief complaint: GI Bleed Stated complaint: GI BLEEDING Time Seen by Provider: 12/21/24 12:40 Arrival date/time: 12/21/24 12:34 This is an 89-year-old female that is brought in by ambulance with complaints of rectal bleeding that started today. Patient arrives to the emergency room febrile and tachycardic. Sepsis alert was called. Patient has past medical history of dementia, CAD status post 2 stents and TIA was admitted to the hospital on 11/27/2024 due to acute blood loss anemia. Patient also had a sacral wound at that time. She was not eating or drinking well, failure to thrive. GI was consulted and did EGD and found the patient to have esophageal ulcers as well as gastritis. GI specialist recommended to continue patient on pantoprazole 40 mg and peptic ulcer diet. Patient's hemoglobin remained stable and given her overall health GI specialist stated that she was not a candidate for colonoscopy. Patient was discharged to a halfway facility. Patient is a DNR/DNI Related Data Home Medications ?Medication ?Instructions ?Recorded ?Confirmed brexpiprazole 1 mg tablet (Rexulti) 2 mg PO DAILY 11/28/24 12/23/24 Previous Rx's ?Medication ?Instructions ?Recorded pantoprazole 40 mg tablet,delayed 40 mg PO QDAY GERD #30 tabs 11/29/24 release (Protonix) sucralfate 100 mg/mL oral 10 ml PO BID #500 mL 11/30/24 suspension folic acid 1 mg tablet 1 mg PO QDAY #60 tabs 12/23/24 thiamine HCl (vitamin B1) 100 mg 100 mg PO QDAY #60 tabs 12/23/24 tablet mirtazapine 15 mg tablet 15 mg PO QDAY #90 tabs 12/25/24 Allergies Allergy/AdvReac Type Severity Reaction Status Date / Time amlodipine Allergy Drowsy Verified 12/03/24 10:55 Review of Systems Review of Systems Systems Reviewed: All systems reviewed, normal except as documented Past Medical History Surgical History OTHER SURGICAL HX: As in the history of present illness ED Exam Narrative Physical exam: VITAL SIGNS: Reviewed. GENERAL APPEARANCE: Alert and interactive, follows commands, no acute distress HEAD AND FACE: Non-traumatic. ENT: PERRL, pale conjunctiva, eyelid no trauma, Mucous membrane moist. NECK: Supple, nontender, no nuchal rigidity. CHEST: No tenderness, no crepitus, no paradoxical movement, no retractions. LUNGS: Clear, well ventilated, symmetric, no rales, no wheezing, no ronchi, no stridor, good breath sounds bilaterally. HEART: Regular rate, regular rhythm, no murmur, no gallops. ABDOMEN: Soft, positive bowel sounds, nondistended, no guarding, nontender, no rebound, no masses, RECTAL: +guiac NEUROLOGICAL: Gross motor function intact sensory function intact, Appropriate for age. MUSCULOSKELETAL: low back nontender, full range of motion. EXTREMITIES: Nontender, full range of motion. SKIN: Color pale, dry, Course Quality Measures none Orders Category Date Time Status Admit to Inpatient Status Routine Admission 12/21/24 20:07 Active Patient Condition Routine Admission 12/21/24 20:06 Ordered Bedrest QS Care 12/21/24 20:06 Active COVID-19 Screening Questionnaire NOW Care 12/21/24 19:[address] Screening NOW Care 12/21/24 17:31 Active Decision to Admit X1 Care 12/21/24 19:15 Completed Notify provider NEEDED Care 12/21/24 20:06 Active Occult Blood,Stool (Nursing) NOW Care 12/21/24 13:01 Active XR chest 1V Stat Exams 12/21/24 13:03 Completed Blood Culture (Lab) Stat Lab 12/21/24 13:20 Completed CBC AM DRAW Lab 12/22/24 04:45 Completed CBC AM DRAW Lab 12/23/24 05:36 Completed CBC Stat Lab 12/21/24 13:27 Completed CBC Stat Lab 12/21/24 17:01 Completed Comprehensive Metabolic Panel AM DRAW Lab 12/22/24 04:45 Completed Comprehensive Metabolic Panel AM DRAW Lab 12/23/24 05:36 Completed Comprehensive Metabolic Panel Stat Lab 12/21/24 13:27 Completed Comprehensive Metabolic Panel Stat Lab 12/21/24 17:01 Completed Lactate (Lactic Acid) Stat Lab 12/21/24 13:27 Completed Lactic Acid, 3 HR Stat Lab 12/21/24 17:01 Completed Magnesium AM DRAW Lab 12/22/24 04:45 Completed Magnesium AM DRAW Lab 12/23/24 05:36 Completed Occult Blood, Stool (LAB) Stat Lab 12/21/24 13:01 Completed PT [Prothrombin Time with INR] Stat Lab 12/21/24 13:27 Completed Phosphorous AM DRAW Lab 12/22/24 04:45 Completed Phosphorous AM DRAW Lab 12/23/24 05:36 Completed Procalcitonin Stat Lab 12/21/24 13:27 Completed Type and Screen Stat Lab 12/21/24 13:27 Completed Urinalysis, C/S if Indicated Stat Lab 12/21/24 17:31 Completed Urine Culture Stat Lab 12/21/24 17:31 Completed Acetaminophen Supp [Tylenol Supp] Med 12/21/24 20:06 Active 650 mg VA Q6H PRN Acetaminophen Supp [Tylenol Supp] Med 12/21/24 13:04 Discontinued 650 mg VA X1 ONE Ondansetron Inj [Zofran Inj] Med 12/21/24 20:06 Active 4 mg IV Q6H PRN Pantoprazole Inj [Protonix Inj] Med 12/21/24 21:00 Active 40 mg IVP Q12HR Ringers Lactated 500 ml [Lactated Ringers] 500 ml Med 12/21/24 16:07 Discontinued IV 999 mls/hr Sodium Chloride 0.9% 1000 ml [Ns] 1,000 ml Med 12/21/24 13:03 Discontinued IV 999 mls/hr Sodium Chloride 0.9% 1000 ml [Ns] 1,000 ml Med 12/21/24 16:03 Discontinued IV 999 mls/hr cefTRIAXone [Rocephin] 1,000 mg Med 12/21/24 18:42 Discontinued SODIUM CHLORIDE 0.9% (Popper) [Ns 0.9% (P)] 50 ml IV X1 Code Status Routine Oth 12/21/24 20:06 Ordered Vital Signs Vital signs: Vital Signs Temperature 101.0 F H 12/21/24 12:50 Pulse Rate 104 H 12/21/24 12:50 Respiratory Rate 23 H 12/21/24 12:50 Blood Pressure 126/71 12/21/24 12:50 Pulse Oximetry (%) 98 12/21/24 12:50 Oxygen Delivery Method Room Air 12/21/24 12:50 GI Bleed MDM Narrative MDM Narrative:: This is an 89-year-old female that is brought in by ambulance with complaints of rectal bleeding that started today. Patient arrives to the emergency room febrile and tachycardic. Sepsis alert was called. Patient has past medical history of dementia, CAD status post 2 stents and TIA was admitted to the hospital on 11/27/2024 due to acute blood loss anemia. Patient also had a sacral wound at that time. She was not eating or drinking well, failure to thrive. GI was consulted and did EGD and found the patient to have esophageal ulcers as well as gastritis. GI specialist recommended to continue patient on pantoprazole 40 mg and peptic ulcer diet. Patient's hemoglobin remained stable and given her overall health GI specialist stated that she was not a candidate for colonoscopy. Patient was discharged to a halfway facility. Patient is a DNR/DNI Patient guaiac positive. Upon arrival to the emergency room patient was febrile and was given Tylenol suppository. Sepsis alert called. Patient got a liter of normal saline. Patient's labs show a white count of 22, initial hemoglobin and hematocrit of 10.8 and 33, platelet count of 397, patient's BNP initially showed 152 sodium, potassium 3.8, chloride 114, bicarb 33.6, anion gap of 14, Bun 74 and a creatinine of 2.0. Patient's glucose was 180 initial lactic acid was 3.5 with a repeat lactic acid of 3.1. Repeat sodium was 155 with a repeat BUN and creatinine of 66 and 1.6 procalcitonin is 0.34. Patient's urine showed UTI. I did talk to Dr. Henriquez who scoped her last. He states there is nothing to do for her as far as another scope. They just recently scoped her and she had gastritis and esophageal ulcer. chest x ray shows: FINDINGS: Lines and Tubes: Overlying monitoring leads. Lungs: Similar biapical scarring and pleural thickening. Hyperinflated. Pleura: No large pneumothorax or pleural effusion. Cardiomediastinal Silhouette: Uncoiled aorta. Coronary artery stents. Heavy calcifications of the vasculature including aorta. Soft Tissues/Bones: Diffuse osteopenia. Scoliotic curvature similar to prior. IMPRESSION: Emphysematous changes without acute pulmonary findings. Patient data External records reviewed:: [facility] previous records Clinical information provided by:: patient Social determinants that could affect healthcare access:: none Patient has the following chronic illnesses:: see hpi How is presenting disease/condition affected by chronic disease/condition?: exacerbated by Evaluation data The following diagnostics were reviewed and interpreted by me:: lab results, radiology exam(s) and EKG tracing(s) Lab and/or radiology exams considered but not ordered:: none Interpretation Summary: see note Medications / Prescriptions Medications or Prescriptions considered but not ordered:: none Medication administrations:: Medication Administration History Acetaminophen (Acetaminophen Supp 650 Mg Supp) 650 mg VA Q6H PRN PRN Reason: PAIN SCALE 1-3 (mild Stop: 01/20/25 20:05 Brexpiprazole [ (Rexulti] 2 Mg Tablet) 0 ea PO QDAY [facility] Stop: 01/22/25 17:44 Last Admin: 12/27/24 09:09 Dose: Not Given Documented By: JASSON Non-Admin Reason: Medication Not Available Admin: 12/26/24 09:43 Dose: 1 tablet Documented By: ANGLE Comments: 2mg Admin: 12/25/24 09:05 Dose: 1 tablet Documented By: ANGLE Comments: 2mg Admin: 12/24/24 12:40 Dose: Not Given Documented By: Non-Admin Reason: Patient Refused Admin: 12/23/24 18:06 Dose: Not Given Documented By: CHASE Non-Admin Reason: grandaughter pt. takes it in the morning Dextrose (Dextrose 50%-Water Inj 50 Ml Syringe) 25 ml IV Q15MIN PRN PRN Reason: BG 50-70 responsive npo pt Stop: 01/25/25 07:59 Last Admin: 12/26/24 08:25 Dose: 25 ml Documented By: ANGLE Dextrose (Dextrose 50%-Water Inj 50 Ml Syringe) 50 ml IV Q15MIN PRN PRN Reason: BG <50 OR BG <70 & pt unresponsive Stop: 01/25/25 07:59 Folic Acid (Folic Acid Inj 1 Mg/0.2 Ml) 1 mg IVP QDAY [facility] Stop: 01/21/25 08:59 Last Admin: 12/27/24 09:06 Dose: 1 mg Documented By: Admin: 12/26/24 09:45 Dose: 1 mg Documented By: Admin: 12/25/24 09:03 Dose: 1 mg Documented By: Admin: 12/24/24 10:41 Dose: 1 mg Documented By: Admin: 12/23/24 09:48 Dose: 1 mg Documented By: Admin: 12/22/24 09:40 Dose: 1 mg Documented By: XOCHILT Glucagon (Glucagon Inj 1 Mg Vial) 1 mg IM Q15MIN PRN PRN Reason: BG <70, and no IV access Ceftriaxone Sodium/Dextrose (Rocephin/D5w 2gm) 2 gm in 50 mls @ 100 mls/hr IV QDAY MARIANA Stop: 01/02/25 08:59 Last Admin: 12/27/24 09:07 Dose: 100 mls/hr Documented By: Infusion: 12/26/24 10:14 Dose: Infused Documented By: Admin: 12/26/24 09:44 Dose: 100 mls/hr Documented By: ANGLE Potassium Phosphate (Pot Phos 15 Mmol In Ns 250 Ml) 15 mmol in 250 mls @ 62.5 mls/hr IV X1 ONE Stop: 12/27/24 12:59 Last Admin: 12/27/24 10:19 Dose: 62.5 mls/hr Documented By: JASSON Megestrol Acetate (Megestrol Acet Susp 400 Mg/10 Ml Udc) 400 mg PO QDAY MARIANA Stop: 01/25/25 08:59 Last Admin: 12/27/24 09:07 Dose: 400 mg Documented By: JASSON Ondansetron HCl (Ondansetron Inj 2 Mg/Ml Inj 2 Ml) 4 mg IV Q6H PRN; Protocol PRN Reason: NAUSEA OR VOMITING Stop: 01/20/25 20:05 Pantoprazole Sodium (Pantoprazole Inj 40 Mg Vial) 40 mg IVP Q12HR [facility] Stop: 01/20/25 20:59 Last Admin: 12/27/24 09:07 Dose: 40 mg Documented By: Admin: 12/26/24 20:25 Dose: 40 mg Documented By: Admin: 12/26/24 09:44 Dose: 40 mg Documented By: Admin: 12/25/24 20:08 Dose: 40 mg Documented By: Admin: 12/25/24 09:04 Dose: 40 mg Documented By: Admin: 12/24/24 20:35 Dose: 40 mg Documented By: Admin: 12/24/24 10:40 Dose: 40 mg Documented By: Admin: 12/23/24 20:53 Dose: 40 mg Documented By: Admin: 12/23/24 09:46 Dose: 40 mg Documented By: Admin: 12/22/24 20:29 Dose: 40 mg Documented By: Admin: 12/22/24 09:36 Dose: 40 mg Documented By: Admin: 12/21/24 22:17 Dose: 40 mg Documented By: NA Thiamine HCl (Thiamine Inj 100 Mg/Ml Vial 2 Ml) 100 mg IV QDAY MARIANA Stop: 01/21/25 08:59 Last Admin: 12/27/24 09:07 Dose: 100 mg Documented By: JASSON Discontinued Medications Acetaminophen (Acetaminophen Supp 650 Mg Supp) 650 mg VA X1 ONE Stop: 12/21/24 13:05 Last Admin: 12/21/24 13:48 Dose: 650 mg Documented By: ATUL Sodium Chloride (Ns) 1,000 mls @ 999 mls/hr IV .Q1H1M ONE Stop: 12/21/24 14:03 Last Infusion: 12/21/24 15:03 Dose: Infused Documented By: Admin: 12/21/24 13:48 Dose: 999 mls/hr Documented By: ATUL Sodium Chloride (Ns) 1,000 mls @ 999 mls/hr IV .Q1H1M ONE Stop: 12/21/24 17:03 Last Infusion: 12/21/24 18:35 Dose: Infused Documented By: Admin: 12/21/24 16:05 Dose: 999 mls/hr Documented By: ATUL Lactated Ringer's (Lactated Ringers) 500 mls @ 999 mls/hr IV .Q31M ONE Stop: 12/21/24 16:37 Last Infusion: 12/21/24 18:35 Dose: Infused Documented By: Admin: 12/21/24 16:12 Dose: 999 mls/hr Documented By: ATUL Ceftriaxone Sodium 1,000 mg/ (Sodium Chloride) 50 mls @ 100 mls/hr IV X1 ONE Stop: 12/21/24 19:11 Last Infusion: 12/21/24 19:26 Dose: Infused Documented By: Admin: 12/21/24 18:56 Dose: 100 mls/hr Documented By: ATUL Potassium Chloride (Kcl Ivpb) 10 meq in 100 mls @ 100 mls/hr IV Q1H MARIANA Stop: 12/22/24 01:29 Last Infusion: 12/22/24 03:09 Dose: Infused Documented By: Admin: 12/22/24 02:09 Dose: 100 mls/hr Documented By: Infusion: 12/22/24 02:03 Dose: Infused Documented By: Admin: 12/22/24 01:03 Dose: 100 mls/hr Documented By: Infusion: 12/22/24 00:50 Dose: Infused Documented By: Admin: 12/21/24 23:50 Dose: 100 mls/hr Documented By: Infusion: 12/21/24 23:25 Dose: Infused Documented By: Admin: 12/21/24 22:22 Dose: 100 mls/hr Documented By: NA Ceftriaxone Sodium 1,000 mg/ (Sodium Chloride) 50 mls @ 100 mls/hr IV QDAY MARIANA Stop: 12/29/24 20:59 Last Admin: 12/25/24 09:03 Dose: 100 mls/hr Documented By: Infusion: 12/24/24 11:10 Dose: Infused Documented By: Admin: 12/24/24 10:40 Dose: 100 mls/hr Documented By: Infusion: 12/23/24 10:16 Dose: Infused Documented By: Admin: 12/23/24 09:46 Dose: 100 mls/hr Documented By: Infusion: 12/22/24 21:00 Dose: Infused Documented By: Admin: 12/22/24 20:29 Dose: 100 mls/hr Documented By: MLD Dextrose (D5w) 500 mls @ 50 mls/hr IV .Q10H MARIANA Stop: 01/20/25 21:44 Last Infusion: 12/22/24 03:20 Dose: 50 mls/hr Documented By: Admin: 12/21/24 22:22 Dose: 50 mls/hr Documented By: NA Acetaminophen (Ofirmev Inj) 1,000 mg in 100 mls @ 250 mls/hr IV Q6HR PRN PRN Reason: fever 100.5 Stop: 12/22/24 12:23 Dextrose (D5w) 500 mls @ 90 mls/hr IV .Q5H34M ONE Stop: 12/22/24 08:30 Last Admin: 12/22/24 03:24 Dose: 90 mls/hr Documented By: LB Potassium Phosphate (Pot Phos 15 Mmol In Ns 250 Ml) 15 mmol in 250 mls @ 62.5 mls/hr IV Q4H MARIANA Stop: 12/22/24 15:58 Last Admin: 12/22/24 13:26 Dose: 62.5 mls/hr Documented By: Infusion: 12/22/24 13:26 Dose: Infused Documented By: Admin: 12/22/24 09:41 Dose: 62.5 mls/hr Documented By: GE Dextrose (D5w) 1,000 mls @ 75 mls/hr IV .[id number] MARIANA Stop: 12/23/24 10:14 Last Admin: 12/23/24 00:13 Dose: 75 mls/hr Documented By: Infusion: 12/23/24 00:05 Dose: Infused Documented By: Admin: 12/22/24 10:45 Dose: 75 mls/hr Documented By: GE Potassium Chloride (Kcl Ivpb) 10 meq in 100 mls @ 50 mls/hr IV Q1H MARIANA Stop: 12/23/24 12:08 Last Admin: 12/23/24 16:31 Dose: 50 mls/hr Documented By: JRDionicio Infusion: 12/23/24 16:28 Dose: Infused Documented By: Admin: 12/23/24 14:28 Dose: 50 mls/hr Documented By: Infusion: 12/23/24 14:23 Dose: Infused Documented By: Admin: 12/23/24 12:23 Dose: 50 mls/hr Documented By: Infusion: 12/23/24 11:53 Dose: Infused Documented By: Admin: 12/23/24 09:53 Dose: 50 mls/hr Documented By: JRDionicio Sodium Chloride (Ns 0.45%) 250 mls @ 50 mls/hr IV .Q5H MARIANA Stop: 12/25/24 16:21 Last Admin: 12/25/24 11:41 Dose: 50 mls/hr Documented By: ANGLE Sodium Chloride (Ns 0.45%) 250 mls @ 50 mls/hr IV .Q5H MARIANA Stop: 12/26/24 13:16 Last Admin: 12/26/24 09:45 Dose: 50 mls/hr Documented By: ANGLE Megestrol Acetate (Megestrol Acet 20 Mg Tablet) 40 mg PO QDAY [facility]IANA Stop: 01/25/25 08:59 Last Admin: 12/26/24 10:14 Dose: 40 mg Documented By: ANGLE Mirtazapine (Mirtazapine 15 Mg Tablet) 15 mg PO QDAY [facility]IANA Stop: 01/24/25 09:14 Last Admin: 12/25/24 10:33 Dose: 15 mg Documented By: ANGLE Non-Formulary Medication (Brexpiprazole [Rexulti]) 2 mg PO DAILY [facility] Stop: 01/22/25 10:44 Last Admin: 12/23/24 16:32 Dose: Not Given Documented By: CHASE Non-Admin Reason: Medication Not Available Comments: notified ac,will bring med. Potassium Chloride (Potassium Chloride 10% 20 Meq/15 Ml Udc) 40 meq PO X1 ONE Stop: 12/23/24 14:26 Last Admin: 12/23/24 14:40 Dose: 40 meq Documented By: CHASE Potassium Chloride (Potassium Chloride 10% 20 Meq/15 Ml Udc) 40 meq PO X1 ONE Stop: 12/25/24 09:11 Last Admin: 12/25/24 10:33 Dose: 40 meq Documented By: ANLGE Potassium Chloride (Potassium Chloride 10% 20 Meq/15 Ml Udc) 40 meq PO X1 ONE Stop: 12/26/24 07:58 Last Admin: 12/26/24 09:46 Dose: 40 meq Documented By: ANGLE Potassium Chloride (Potassium Chloride 10% 20 Meq/15 Ml Udc) 40 meq PO X1 ONE Stop: 12/26/24 08:00 Last Admin: 12/26/24 12:09 Dose: Not Given Documented By: ANGLE Non-Admin Reason: Duplicate Medication on eMAR Potassium Phos/Sodium Phos ([facility] 1 Packet (1.5 Gm)) 1 packet PO X1 ONE Stop: 12/24/24 07:45 Last Admin: 12/24/24 10:42 Dose: 1 packet Documented By: Thiamine HCl (Thiamine Inj 100 Mg/Ml Vial 2 Ml) 100 mg IM QDAY MARIANA Stop: 01/21/25 08:59 Last Admin: 12/26/24 09:44 Dose: 100 mg Documented By: Admin: 12/25/24 09:04 Dose: 100 mg Documented By: Admin: 12/24/24 10:41 Dose: 100 mg Documented By: Admin: 12/23/24 09:47 Dose: 100 mg Documented By: Admin: 12/22/24 09:36 Dose: 100 mg Documented By: XOCHILT Zinc Sulfate (Zinc Sulfate 220 Mg Capsule) 220 mg PO X1 ONE Stop: 12/21/24 21:27 Last Admin: 12/21/24 23:58 Dose: Not Given Documented By: LB Non-Admin Reason: Unable to Swallow see mar Consultations Consultation(s) initiated? (list below): Yes Consultation #1 (Physician, Specialty, Details): , spoke to him about patient. He remembers patient. Patient was recently scoped by Dr. Henriquez. I let him know about patient's rectal bleeding. He states there is nothing to do for patient's rectal bleeding. Patient is already a DNR/DNI and is getting worse. Patient not eating and drinking. He states he could be consulted if they family wants PEG tube placement otherwise there is nothing to do for rectal bleeding at this time. Diagnosis GI bleed differential diagnosis: hemorrhoids, infectious diarrhea, Upper gastrointestinal hemorrhage and Lower gastrointestinal hemorrhage Most likely diagnosis given after review of the tests above:: gi bleed Admission Indicated Admission indicated?: not indicated Admission Request Was there a request for admission?: Yes Admission Attestation Admission request attestation: Discussed case with [] from Hospitalist service regarding admission. Discussed patients ED course, exam findings, labs, and radiology results. The Hospitalist [agrees,declines] to accept the patient for admission. Disposition Plan Disposition Plan: Admit Discharge Plan Plan Patient Disposition: Admit Acute Care w/in Hospital Patient condition on transfer: Stable Problem List Clinical Impression: Acute UTI, Acute GI bleeding, Hypernatremia, Acute dehydration, Creatinine elevation, Elevated BUN, Fever PA/SENIOR ACCOUNT MANAGER Supervising Physician PA/SENIOR ACCOUNT MANAGER Supervising Physician: ann
[2024-12-21 13:42] LABS: Lactate (Lactic Acid) 3.5 mMol/L (0.4-2.0)
[2024-12-21 13:47] LABS: Basophils # (Auto) 0.1 Thou/mm3 (0.0-0.2); Basophils % (Auto) 0 % (0-2.5); Eosinophils % (Auto) 0 % (0-10); Hematocrit 33.3 % (36.0-46.0); Hemoglobin 10.8 g/dL (12.0-16.0); Immature Granulocytes % (Auto) 2 % (0-0); Immature Granulocytes Auto 0.32 Thou/mm3 (0.00-0.00); Lymphocytes # (Auto) 0.8 Thou/mm3 (1.0-4.8); Lymphocytes % (Auto) 4 % (10-50); Mean Corpuscular HGB Conc 32.4 g/dl (31.0-37.0); Mean Corpuscular Hemoglobin 32.7 pg (25.0-35.0); Mean Corpuscular Volume 101 fL (80-100); Monocytes # (Auto) 0.9 Thou/mm3 (0.0-0.8); Monocytes % (Auto) 4 % (0-12); Neutrophils % (Auto) 91 % (37-80); Nucleated Red Blood Cell # 0.02 Thou/mm3 (0.00-0.00); Nucleated Red Blood Cell % 0 /100 WBC (0); Platelet Count 397 Thou/mm3 (140-440); RDW Standard Deviation 46.7 fL (36.4-46.3)
[2024-12-21] MEDS: SODIUM CHLORIDE 0.9% 1000 ML 1,000 ML 999 ML IV ×2 (13:48→16:05)
[2024-12-21] MEDS: ACETAMINOPHEN SUPP 650 MG SUPP PR (13:48)
[2024-12-21 13:58] LABS: INR 1.2 (0.9-1.3); Prothrombin Time 12.6 Seconds (9.0-12.2)
[2024-12-21 14:13] LABS: Alanine Aminotransferase 8 U/L (10-49); Albumin, Serum 3.5 gm/dL (3.4-4.8); Alkaline Phosphatase 95 U/L (46-116); Anion Gap 14 (7-16); Aspartate Amino Transferase 17 U/L (0-34); BUN/Creatinine Ratio 37 Ratio (12-20); Bilirubin,Total 0.4 mg/dL (0.3-1.2); Blood Urea Nitrogen 74 mg/dL (9-23); Calcium 9.4 mg/dL (8.3-10.6); Calcium (Corrected) 9.8 mg/dL (8.5-10.1); Carbon Dioxide 23.6 mMol/L (20.0-31.0); Chloride 114 mMol/L (98-107); Globulin 3.6 gm/dL (2.3-3.5); Glucose 180 mg/dL (74-106); Osmolality,Calculated 328 (275-295); Potassium 3.8 mMol/L (3.4-5.1); Procalcitonin 0.34 ng/ml (0.0-0.49); Sodium 152 mMol/L (136-145); Total Protein 7.1 gm/dL (5.7-8.2); eGFR 24 See Note
[2024-12-21 15:24] LABS: OBS Card Lot # 1201; OBS Developer Lot # 436; OBS Performed By PEREJ; OBS QC OK? Yes; Occult Blood, Stool Positive (Negative)
[2024-12-21] MEDS: RINGERS LACTATED 500 ML 500 ML 999 ML IV (16:12)
[2024-12-21 16:40] LABS: Reflex Lactate? Y
[2024-12-21 17:10] LABS: Lactic Acid, 3 HR 3.1 mMol/L (0.4-2.0)
[2024-12-21 17:15] LABS: Basophils % (Auto) 0 % (0-2.5); Eosinophils % (Auto) 0 % (0-10); Hematocrit 27.5 % (36.0-46.0); Immature Granulocytes % (Auto) 1 % (0-0); Immature Granulocytes Auto 0.27 Thou/mm3 (0.00-0.00); Lymphocytes # (Auto) 0.7 Thou/mm3 (1.0-4.8); Lymphocytes % (Auto) 4 % (10-50); Mean Corpuscular HGB Conc 31.3 g/dl (31.0-37.0); Mean Corpuscular Hemoglobin 32.3 pg (25.0-35.0); Mean Corpuscular Volume 103 fL (80-100); Monocytes % (Auto) 5 % (0-12); Neutrophils # (Auto) 17.1 Thou/mm3 (1.8-7.7); Neutrophils % (Auto) 90 % (37-80); Nucleated Red Blood Cell % 0 /100 WBC (0); Platelet Count 267 Thou/mm3 (140-440); RDW Standard Deviation 47.4 fL (36.4-46.3); Red Blood Count 2.66 Miln/mm3 (4.00-5.20)
[2024-12-21 17:18] LABS: Hemoglobin 8.6 g/dL (12.0-16.0)
[2024-12-21 17:55] LABS: Alanine Aminotransferase < 7 U/L (10-49); Albumin, Serum 2.7 gm/dL (3.4-4.8); Alkaline Phosphatase 73 U/L (46-116); Anion Gap 12 (7-16); Aspartate Amino Transferase 11 U/L (0-34); BUN/Creatinine Ratio 41 Ratio (12-20); Bilirubin,Total 0.3 mg/dL (0.3-1.2); Blood Urea Nitrogen 66 mg/dL (9-23); Carbon Dioxide 23.4 mMol/L (20.0-31.0); Chloride 120 mMol/L (98-107); Creatinine (Component) 1.6 mg/dL (0.6-1.3); Estimated Creatinine Clearance 18.8 mL/min (>60); Globulin 2.8 gm/dL (2.3-3.5); Glucose 148 mg/dL (74-106); Osmolality,Calculated 329 (275-295); Potassium 3.3 mMol/L (3.4-5.1); Sodium 155 mMol/L (136-145); Total Protein 5.5 gm/dL (5.7-8.2); eGFR 31 See Note
[2024-12-21 18:07] LABS: Collection Type, Urine Voided
[2024-12-21 18:34] LABS: Bacteria,Urine 3+; Bilirubin,Urine Negative (Negative); Blood,Urine 3+ (Negative); Clarity,Urine Turbid (Clear/Hazy); Color,Urine Yellow (Lt Yel-Yel); Culture Indicated,Urine Yes; Glucose, Urine Negative (Negative); Hyaline Casts,Urine 2 /hpf (0-1); Ketones,Urine Negative (Negative); Leukocyte Esterase,Urine Positive (Negative); Nitrite,Urine Negative (Negative); Protein,Urine Trace (Neg - Trace); RBC,Urine 36 /hpf (0-3); Specific Gravity,Urine 1.022 (1.001-1.035); Squamous Epithelial Cell,Urine 1 /hpf (0-5); WBC,Urine 32 /hpf (0-5)
[2024-12-21] MEDS: cefTRIAXone 1,000 MG in SODIUM CHLORIDE 0.9% (Popper) 50 ML 100 MG IV (18:56)
[2024-12-21 21:41] LABS: Lactate (Lactic Acid) 1.9 mMol/L (0.4-2.0)
--- NOTE | 2024-12-21 22:00 | ESHP_ITS ---
<Statement entered by Ceferino Wallace MD - 12/25/24 05:02> 89-year-old female with hypertension, hyperlipidemia with subsequent CAD status post stent placement and dementia with subsequent failure to thrive [facility] generalized fatigue and hematochezia. Found to have sepsis secondary to UTI symptomatic anemia secondary to possible lower GI bleed. As a result, plan to start IV antibiotic therapy and consult gastroenterology.I reviewed above note and agree with findings and plans. I have also personally examined the patient with medicine team and went over assessment and plan with medical team including internet and e business project manager and resident physician. Documentation for date of: 12/21/24 HPI History of Present Illness History of present illness: HPI: An 89-year-old female patient with past medical history of dementia, failure to thrive, coronary artery disease status post 2 stents, TIA, brought to the ED from [facility] transitional care because patient was noticed to be febrile and tachycardic with decreased level of energy. Patient was also noticed to have multiple episodes of hematochezia noted at the facility. On questioning, patient was severely lethargic and was not interested in any conversation. Upon review the patient's chart when noted that patient had been admitted to the hospital 3 weeks ago due to lower GI bleed. At that time EGD was done which showed esophageal ulcers and gastritis. However, because the patient's general condition the GI specialist Dr. Henriquez concluded that the patient is not candidate for colonoscopy and recommended conservative therapy. Today the patient started to have multiple episodes of hematochezia last episode was in the ED in which it was maroon color. In the ED patient was noted to have blood pressure of 126/71, pulse rate of 104, respiratory rate 23, temperature of 101.0, saturating 98% on room air. Initially her hemoglobin was 10.8 which is consistent with her number when she was discharged from the hospital in November 30, 2024, however repeat H&H showed hemoglobin level of 8.6. After 4 hours. Platelets are normal of 267, WBC of 19, sodium level of 155, potassium 3.8, BUN of 74, serum creatinine 2.0, chloride 114, lactic acid 3.5 down trended to 1.9. Patient was given 2 L of NS by the ED team initially and 500 mL of Ringer lactate. Pro-Brenton was negative. Chest x-ray showed emphysematous changes however it was negative for any pulmonary infection.. Patient met sepsis criteria with a source of infection being urine as the patient was tested positive for WBCs, bacteria. PMH: As above Social hx: Resident at [facility] Allergies: Amlodipine Review of Systems Review of Systems ROS Unobtainable: unobtainable due to mental status Exam Vital Signs Temp Pulse Resp BP Pulse Ox O2 Del Method O2 Flow Rate 98.2 F 74 18 110/53 L 98 Room Air 0 12/21/24 22:30 12/21/24 22:30 12/21/24 22:30 12/21/24 22:30 12/21/24 22:30 12/21/24 22:30 12/21/24 22:30 Narrative Exam GEN: Unable to assess orientation as the patient severely lethargic and not interested in answering any question. She looks cachectic with temporal wasting, dehydrated. HEENT: NC/AC,oral mucosa dry, neck supple CVS: RRR, S1-S2 present, no murmurs appreciated RESP: CTAB GI: soft,non distended, non tender, NBS MSK: able to move all 4 limbs, no lower extremity edema SKIN: warm and dry AIRCRAFT ENGINE MECHANIC OVERHAUL: Unable to examine AIRCRAFT ENGINE MECHANIC OVERHAUL as the patient is unable to cooperate for the exam Results: Labs 12/23/24 05:36 12/23/24 05:36 Labs: Short CBC 12/21/24 12/21/24 12/21/24 Range/Units 13:27 17:01 21:28 WBC 22.0 H 19.0 H (3.6-11.0) Thou/mm3 Hgb 10.8 L 8.6 L D 8.2 L (12.0-16.0) g/dL Hct 33.3 L 27.5 L 25.9 L (36.0-46.0) % Plt Count 397 D 267 D (140-440) Thou/mm3 BMP 12/21/24 12/21/24 12/21/24 13:27 17:01 21:28 Sodium 152 H 155 H 155 H Potassium 3.8 3.3 L D Chloride 114 H 120 H Carbon Dioxide 23.6 23.4 BUN 74 H 66 H Creatinine 2.0 H 1.6 H Glucose 180 H 148 H Calcium 9.4 8.0 L Cardiac Enzymes 12/21/24 Range/Units 21:28 Troponin I 0.030 (0.0-0.045) ng/mL Liver Function 12/21/24 12/21/24 Range/Units 13:27 17:01 Total Bilirubin 0.4 0.3 (0.3-1.2) mg/dL AST 17 11 (0-34) U/L ALT 8 L < 7 L (10-49) U/L Alkaline Phosphatase 95 73 D (46-116) U/L Albumin 3.5 2.7 L D (3.4-4.8) gm/dL Urine 12/21/24 Range/Units 17:31 Urine Color Yellow (Lt Yel-Yel) Urine Clarity Turbid A (Clear/Hazy) Urine pH 6.0 (5.0-7.0) Ur Specific [place] 1.022 (1.001-1.035) Urine Protein Trace (Neg - Trace) Urine Glucose (UA) Negative (Negative) Quality Measures Quality Measures VTE prophylaxis and sepsis Current suspected stage: sepsis Possible source: genitourinary Blood cultures ordered: yes Antibiotic ordered: Yes Advance care planning discussed with:: legal surragate (Vega johns granddaughter) Medications Home Medications and Allergies Home Medications ?Medication ?Instructions ?Recorded ?Confirmed ?Type brexpiprazole 1 mg tablet (Rexulti) 2 mg PO DAILY 11/1512/23/24 History Allergies Allergy/AdvReac Type Severity Reaction Status Date / Time amlodipine Allergy Drowsy Verified 12/03/24 10:55 Visit Medications Acetaminophen (Acetaminophen Supp 650 Mg Supp) 650 mg AR Q6H PRN PRN Reason: PAIN SCALE 1-3 (mild Stop: 01/20/25 20:05 Folic Acid (Folic Acid Inj 1 Mg/0.2 Ml) 1 mg IVP QDAY MARINAA Stop: 01/21/25 08:59 Potassium Chloride (Kcl Ivpb) 10 meq in 100 mls @ 100 mls/hr IV Q1H MARIANA Stop: 12/22/24 01:29 Last Admin: 12/21/24 23:50 Dose: 100 mls/hr Ceftriaxone Sodium 1,000 mg/ (Sodium Chloride) 50 mls @ 100 mls/hr IV QDAY MARIANA Stop: 12/28/24 21:22 Dextrose (D5w) 500 mls @ 50 mls/hr IV .Q10H MARIANA Stop: 01/20/25 21:44 Last Admin: 12/21/24 22:22 Dose: 50 mls/hr Ondansetron HCl (Ondansetron Inj 2 Mg/Ml Inj 2 Ml) 4 mg IV Q6H PRN; Protocol PRN Reason: NAUSEA OR VOMITING Stop: 01/20/25 20:05 Pantoprazole Sodium (Pantoprazole Inj 40 Mg Vial) 40 mg IVP Q12HR MARIANA Stop: 01/20/25 20:59 Last Admin: 12/21/24 22:17 Dose: 40 mg Thiamine HCl (Thiamine Inj 100 Mg/Ml Vial 2 Ml) 100 mg IM QDAY MARIANA Stop: 01/21/25 08:59 Discontinued Medications Acetaminophen (Acetaminophen Supp 650 Mg Supp) 650 mg AR X1 ONE Stop: 12/21/24 13:05 Last Admin: 12/21/24 13:48 Dose: 650 mg Sodium Chloride (Ns) 1,000 mls @ 999 mls/hr IV .Q1H1M ONE Stop: 12/21/24 14:03 Last Infusion: 12/21/24 15:03 Dose: Infused Sodium Chloride (Ns) 1,000 mls @ 999 mls/hr IV .Q1H1M ONE Stop: 12/21/24 17:03 Last Infusion: 12/21/24 18:35 Dose: Infused Lactated Ringer's (Lactated Ringers) 500 mls @ 999 mls/hr IV .Q31M ONE Stop: 12/21/24 16:37 Last Infusion: 12/21/24 18:35 Dose: Infused Ceftriaxone Sodium 1,000 mg/ (Sodium Chloride) 50 mls @ 100 mls/hr IV X1 ONE Stop: 12/21/24 19:11 Last Infusion: 12/21/24 19:26 Dose: Infused Acetaminophen (Ofirmev Inj) 1,000 mg in 100 mls @ 250 mls/hr IV Q6HR PRN PRN Reason: fever 100.5 Stop: 12/22/24 12:23 Zinc Sulfate (Zinc Sulfate 220 Mg Capsule) 220 mg PO X1 ONE Stop: 12/21/24 21:27 Last Admin: 12/21/24 23:58 Dose: Not Given Assessment & Plan Plan Summary:An 89-year-old female patient with past medical history of dementia, failure to thrive, coronary artery disease status post 2 stents, TIA, brought to the ED from [facility] transitional [facility] because patient was noticed to be febrile and tachycardic with decreased level of energy. Patient was also noticed to have multiple episodes of hematochezia noted at the facility. Patient was admitted for treatment of sepsis secondary to UTI and hematochezia Assessment and plan #Sepsis secondary to UTI #UTI blood pressure of 126/71, pulse rate of 104, respiratory rate 23, temperature of 101.0, saturating 98% on room air. WBC of 19, sodium level of 155, potassium 3.8, BUN of 74, serum creatinine 2.0, chloride 114, lactic acid 3.5 down trended to 1.9. Chest x-ray showed emphysematous changes however it was negative for any pulmonary infection. Patient met sepsis criteria with a source of infection being urine as the patient was tested positive for WBCs, bacteria. Plan ? Admit patient to telemetry ? Start the patient on ceftriaxone 1 g IV ? Follow-up on the urine culture and blood culture ? Encourage oral intake as needed ? Put the patient on PureWick, consider Nunez's catheter if noticed to have any obstruction ? Bladder scan now #GI bleed, lower #Esophageal ulcers #History of gastritis Upon review the patient's chart when noted that patient had been admitted to the hospital 3 weeks ago due to lower GI bleed. At that time EGD was done which showed esophageal ulcers and gastritis. However, because the patient's general condition the GI specialist Dr. Henriquez concluded that the patient is not candidate for colonoscopy and recommended conservative therapy. Today the patient started to have multiple episodes of hematochezia last episode was in the ED in which it was maroon color. The ED team reported that they called Dr. Henriquez in which she recommended no colonoscopy at this time, he is willing to place a PEG tube if family agree on that. On discussion with the daughter at the Ct she denied placing PEG tube for the patient at this time Patient underwent CT scan on 27 November 2024 and showed colonic diverticulosis and constipation. On presentation her hemoglobin was 10.6 after the patient was given 2.5 L of fluids her hemoglobin dropped to 8.6. Patient continues to have episodes of hematochezia in the ED Plan ? GI consultation to Dr. Henriquez was done, follow recommendations ? Start the patient on Protonix IV ? Repeat H&H ? Close monitoring for hemoglobin on daily basis ? Consider goals of care discussion with the patient due to her general condition ? Consider repeat CT scan for abdomen and pelvis as last CT scan was done and pretty 2024 and showed diverticulosis #Hypernatremia #Hypokalemia #Hyperchloremia #SIDRA most likely prerenal Patient electrolyte derangement most likely secondary to dehydration and infection sodium level of 155, potassium 3.8, BUN of 74, serum creatinine 2.0, chloride 114, lactic acid 3.5 down trended to 1.9. Patient was given 2 L of NS by the ED team initially and 500 mL of Ringer lactate. Pro-Brenton was negative. Plan ? KCl 40 mEq x 1 IV ? Start the patient on D5W 50 mL/h uptitrate according to sodium checks levels ? Sodium checks every 3 hours ? Avoid nephrotoxic medications ? Daily BMP #Acute encephalopathy most likely multifactorial secondary to dehydration versus sepsis versus worsening of dementia #Dehydration #Failure to thrive #History of dementia Patient body mass index of 19.1, there is temporal wasting, on examination patient is severely dehydrated. And found to have SIDRA Plan ? Nursing bedside swallow eval ? Neurochecks every 4 hours ? Referral to dietitian consult start ? Start the patient on folic acid, thiamine, zinc ? Glucerna as needed with meal #History of TIA #History of carotid artery disease Plan ? Hold home medications at this time due to the bleeding per rectum Hospital Maintenance: FEN: CLD if patient passes nursing swallow eval DVT ppx: SCD due to GI bleed GI ppx: Protonix IV IV lines: PIV Nunez: None Code status: DNR/DNI Dispo: Admit - Patient's plan and care discussed with my attending, Dr. Rodrigo Gaffney MD Internal Medicine PGY-2
[2024-12-21 22:16] LABS: Sodium 155 mMol/L (136-145)
[2024-12-21] MEDS: PANTOPRAZOLE INJ 40 MG VIAL IVP (22:17)
[2024-12-21] MEDS: POTASSIUM CHL 10 mEq IVPB 10 MEQ/100 ML BAG 100 MEQ IV ×2 (22:22→23:50)
[2024-12-21] MEDS: DEXTROSE 5%-WATER 500 ML 50 ML IV (22:22)
[2024-12-21 23:10] LABS: Hematocrit 25.9 % (36.0-46.0)
[2024-12-21 23:17] LABS: Hemoglobin 8.2 g/dL (12.0-16.0)
--- NOTE | 2024-12-21 23:45 | PC.NURSE ---
[id number] in room seeing pt, Grand dtr at bedside.
[2024-12-22] VITALS (10 sets, daily range): BP systolic 98–124; BP diastolic 47–62; PULSE 58–637; RESP 16–19; TEMP 35.9–36.8; O2SAT 94–100; BMI 19.1
[2024-12-22] MEDS: POTASSIUM CHL 10 mEq IVPB 10 MEQ/100 ML BAG 100 MEQ IV ×2 (01:03→02:09)
[2024-12-22 02:03] LABS: Sodium 156 mMol/L (136-145)
[2024-12-22] MEDS: DEXTROSE 5%-WATER 500 ML 90 ML IV (03:24)
[2024-12-22 04:54] LABS: Basophils % (Auto) 0 % (0-2.5); Eosinophils % (Auto) 0 % (0-10); Hematocrit 23.6 % (36.0-46.0); Immature Granulocytes % (Auto) 1 % (0-0); Immature Granulocytes Auto 0.18 Thou/mm3 (0.00-0.00); Lymphocytes # (Auto) 1.7 Thou/mm3 (1.0-4.8); Lymphocytes % (Auto) 10 % (10-50); Mean Corpuscular HGB Conc 31.4 g/dl (31.0-37.0); Mean Corpuscular Hemoglobin 32.6 pg (25.0-35.0); Mean Corpuscular Volume 104 fL (80-100); Monocytes # (Auto) 1.1 Thou/mm3 (0.0-0.8); Monocytes % (Auto) 7 % (0-12); Neutrophils # (Auto) 13.5 Thou/mm3 (1.8-7.7); Neutrophils % (Auto) 82 % (37-80); Nucleated Red Blood Cell % 0 /100 WBC (0); Platelet Count 239 Thou/mm3 (140-440); RDW Standard Deviation 47.9 fL (36.4-46.3); Red Blood Count 2.27 Miln/mm3 (4.00-5.20); White Blood Count 16.5 Thou/mm3 (3.6-11.0)
[2024-12-22 05:23] LABS: Alanine Aminotransferase < 7 U/L (10-49); Albumin, Serum 2.5 gm/dL (3.4-4.8); Albumin/Globulin Ratio 0.9 (1.2-2.2); Alkaline Phosphatase 63 U/L (46-116); Anion Gap 7 (7-16); Aspartate Amino Transferase 11 U/L (0-34); BUN/Creatinine Ratio 48 Ratio (12-20); Bilirubin,Total 0.3 mg/dL (0.3-1.2); Blood Urea Nitrogen 58 mg/dL (9-23); Calcium 7.9 mg/dL (8.3-10.6); Calcium (Corrected) 9.1 mg/dL (8.5-10.1); Carbon Dioxide 25.8 mMol/L (20.0-31.0); Chloride 119 mMol/L (98-107); Creatinine (Component) 1.2 mg/dL (0.6-1.3); Estimated Creatinine Clearance 25.1 mL/min (>60); Globulin 2.7 gm/dL (2.3-3.5); Glucose 120 mg/dL (74-106); Magnesium 2.3 mg/dL (1.6-2.6); Osmolality,Calculated 318 (275-295); Phosphorous 1.5 mg/dL (2.4-5.1); Potassium 3.4 mMol/L (3.4-5.1); Sodium 152 mMol/L (136-145); Thyroid Stimulating Hormone 2.54 uIU/mL (0.55-4.78); Total Protein 5.2 gm/dL (5.7-8.2); eGFR 44 See Note
[2024-12-22 05:24] LABS: Hemoglobin 7.4 g/dL (12.0-16.0)
[2024-12-22] MEDS: PANTOPRAZOLE INJ 40 MG VIAL IVP ×2 (09:36→20:29)
[2024-12-22] MEDS: THIAMINE INJ 100 MG/ML VIAL 2 ML IM (09:36)
[2024-12-22] MEDS: FOLIC ACID INJ 1 MG/0.2 ML IVP (09:40)
[2024-12-22] MEDS: POT PHOS 15 mMol in NS 250 ML 15 MMOL/250 ML BAG 62.5 MMOL IV ×2 (09:41→13:26)
[2024-12-22 10:45] LABS: Sodium 150 mMol/L (136-145)
[2024-12-22] MEDS: DEXTROSE 5%-WATER 1,000 ML 75 ML IV (10:45)
--- NOTE | 2024-12-22 11:44 | PCS.ST ---
Swallowing evaluation deferred. Dr. Lozano wants pt to remain on clear liquid diet until pt is seen by GI.
[2024-12-22 13:19] LABS: Stool for WBCs Negative (Negative)
[2024-12-22 14:21] LABS: Hematocrit 24.7 % (36.0-46.0)
[2024-12-22 14:47] LABS: Hemoglobin 7.8 g/dL (12.0-16.0)
--- NOTE | 2024-12-22 16:01 | ESPR_ITS ---
<Statement entered by Zac Purcell MD - 12/22/24 17:24> Patient was seen and examined by me personally. I agree with most of the assessment and plan as discussed with the internet researcher physician, and my attending, Dr. Bauman. 89-year-old female admitted overnight with encephalopathy, secondary to sepsis from UTI and concern for lower GI bleed. Patient was seen on a previous admission, deemed not a candidate for colonoscopy. At that time, patient's family refused PEG placement as well. GOC was done today with patient's granddaughter, Vega, who decided to transition patient to hospice care. Currently on IV rocephin with cultures pending. Sodium noted to be elevated, and patient was started on D5w, with q4h Na checks. Zac Purcell MD, PGY-3 Documentation for date of: 12/22/24 Subjective Subjective Interval history: Patient is an overnight admit. Patient is seen and examined at bedside this morning patient is an elderly frail female. Patient is very lethargic and is unable to answer any questions, and patient is unable to tolerate oral diet including liquids. Goals of care discussion was initiated with the patient's granddaughter Vega who is the legal medical decision maker. We reviewed the patient's hospital course, ongoing management and potential risks and benefits of any aggressive treatments and or interventions. All treatment options including full treatment including colonoscopy for the work of hematochezia, PEG tube placement for continuos nutritional option, palliative, hospice have been discussed at length. Ms. Ferrari was given time to ask questions; all of her questions were answered to satisfaction with understanding of the patient's prognosis and the decision to transition the patient to hospice care with direct focus on hospice service and patient's comfort of home was made. Ms. Ferrari shared that her and her grandmother wishes are for her to go home and not go back the nursing facility. Ms. Ferrari showed good understanding of what hospice care is and referral to hospice is made. Patient's preference for care include home care, family presence, avoidance of resuscitation or jail. Exam Vital Signs Temp Pulse Resp BP Pulse Ox O2 Del Method O2 Flow Rate 96.7 F L 107 H 17 108/62 94 L Room Air 0 12/22/24 11:57 12/22/24 11:57 12/22/24 11:57 12/22/24 11:57 12/22/24 11:57 12/22/24 11:57 12/21/24 22:30 Narrative Exam GENERAL: Pt. os somnalent, frail, lethargic appearing elderly female NEURO: unable to asses HEENT: Atraumatic, Normocephalic. mucous membranes dry. HEART: Normal Heart Sounds LUNGS: Clear to auscultation with no wheezing or crackles. ABDOMEN: soft, non-distended, non-tender, bowel sounds heard, no guarding or rebound tenderness SKIN: No Rash or ecchymoses EXTREMITIES: No edema, tenderness, pedal pulses palpated Objective Labs 12/23/24 05:36 12/23/24 05:36 Labs: Laboratory Results - last 24 hr 12/21/24 12/21/24 12/21/24 17:01 17:31 21:28 WBC 19.0 H RBC 2.66 L Hgb 8.6 L D 8.2 L Hct 27.5 L 25.9 L MCV 103 H MCH 32.3 MCHC 31.3 RDW Std Deviation 47.4 H Plt Count 267 D Neut % (Auto) 90 H Lymph % (Auto) 4 L Spink % (Auto) 5 Eos % (Auto) 0 Baso % (Auto) 0 Neut # (Auto) 17.1 H Lymph # (Auto) 0.7 L Spink # (Auto) 1.0 H Eos # (Auto) 0.0 Baso # (Auto) 0.0 Immature Gran # (Auto) 0.27 H Absolute Nucleated RBC 0.00 Immature Gran % 1 H Nucleated RBC % 0 Sodium 155 H 155 H Potassium 3.3 L D Chloride 120 H Carbon Dioxide 23.4 Anion Gap 12 BUN 66 H Creatinine 1.6 H Estim Creat Clear Calc 18.8 L eGFR 31 L BUN/Creatinine Ratio 41 H Glucose 148 H Calculated Osmolality 329 H Lactic Acid 3.1 H 1.9 Calcium 8.0 L Corrected Calcium 9.0 Phosphorus Magnesium Total Bilirubin 0.3 AST 11 ALT < 7 L Alkaline Phosphatase 73 D Troponin I 0.030 Total Protein 5.5 L Albumin 2.7 L D Globulin 2.8 Albumin/Globulin Ratio 1.0 L TSH Ur Collection Type Voided Urine Color Yellow Urine Clarity Turbid A Urine pH 6.0 Ur Specific [place] 1.022 Urine Protein Trace Urine Glucose (UA) Negative Urine Ketones Negative Urine Blood 3+ A Urine Nitrite Negative Urine Bilirubin Negative Urine Urobilinogen (Auto) 3.0 Ur Leukocyte Esterase Positive Urine RBC 36 H Urine WBC 32 H Ur Squamous Epith Cells 1 Urine Bacteria 3+ A Hyaline Casts 2 H Ur Culture Indicated? Yes Stool for White Cells Stl C. diff Tox B Gene 12/22/24 12/22/24 12/22/24 01:47 04:45 05:26 WBC 16.5 H RBC 2.27 L Hgb 7.4 L Hct 23.6 L MCV 104 H MCH 32.6 MCHC 31.4 RDW Std Deviation 47.9 H Plt Count 239 Neut % (Auto) 82 H Lymph % (Auto) 10 Spink % (Auto) 7 Eos % (Auto) 0 Baso % (Auto) 0 Neut # (Auto) 13.5 H Lymph # (Auto) 1.7 Spink # (Auto) 1.1 H Eos # (Auto) 0.0 Baso # (Auto) 0.0 Immature Gran # (Auto) 0.18 H Absolute Nucleated RBC 0.00 Immature Gran % 1 H Nucleated RBC % 0 Sodium 156 H 152 H Potassium 3.4 Chloride 119 H Carbon Dioxide 25.8 Anion Gap 7 BUN 58 H Creatinine 1.2 Estim Creat Clear Calc 25.1 L eGFR 44 L BUN/Creatinine Ratio 48 H Glucose 120 H Calculated Osmolality 318 H Lactic Acid Calcium 7.9 L Corrected Calcium 9.1 Phosphorus 1.5 L Magnesium 2.3 Total Bilirubin 0.3 AST 11 ALT < 7 L Alkaline Phosphatase 63 Troponin I Total Protein 5.2 L Albumin 2.5 L Globulin 2.7 Albumin/Globulin Ratio 0.9 L TSH 2.54 Ur Collection Type Urine Color Urine Clarity Urine pH Ur Specific [place] Urine Protein Urine Glucose (UA) Urine Ketones Urine Blood Urine Nitrite Urine Bilirubin Urine Urobilinogen (Auto) Ur Leukocyte Esterase Urine RBC Urine WBC Ur Squamous Epith Cells Urine Bacteria Hyaline Casts Ur Culture Indicated? Stool for White Cells Negative Stl C. diff Tox B Gene Cancelled 12/22/24 12/22/24 09:43 13:46 WBC RBC Hgb 7.8 L Hct 24.7 L MCV MCH MCHC RDW Std Deviation Plt Count Neut % (Auto) Lymph % (Auto) Spink % (Auto) Eos % (Auto) Baso % (Auto) Neut # (Auto) Lymph # (Auto) Spink # (Auto) Eos # (Auto) Baso # (Auto) Immature Gran # (Auto) Absolute Nucleated RBC Immature Gran % Nucleated RBC % Sodium 150 H Potassium Chloride Carbon Dioxide Anion Gap BUN Creatinine Estim Creat Clear Calc eGFR BUN/Creatinine Ratio Glucose Calculated Osmolality Lactic Acid Calcium Corrected Calcium Phosphorus Magnesium Total Bilirubin AST ALT Alkaline Phosphatase Troponin I Total Protein Albumin Globulin Albumin/Globulin Ratio TSH Ur Collection Type Urine Color Urine Clarity Urine pH Ur Specific [place] Urine Protein Urine Glucose (UA) Urine Ketones Urine Blood Urine Nitrite Urine Bilirubin Urine Urobilinogen (Auto) Ur Leukocyte Esterase Urine RBC Urine WBC Ur Squamous Epith Cells Urine Bacteria Hyaline Casts Ur Culture Indicated? Stool for White Cells Stl C. diff Tox B Gene Quality Measures Quality Measures VTE prophylaxis and sepsis Current suspected stage: sepsis Possible source: genitourinary Blood cultures ordered: yes Antibiotic ordered: Yes Advance care planning discussed with:: legal surragate Assessment & Plan Assessment Current Active Medications: Generic Name Dose Route Start Last Admin Trade Name Freq PRN Reason Stop Dose Admin Acetaminophen 650 mg 12/21/24 20:06 Acetaminophen Supp 650 Mg Supp MN 01/20/25 20:05 Q6H PRN PAIN SCALE 1-3 (mild Folic Acid 1 mg 12/22/24 09:00 12/22/24 09:40 Folic Acid Inj 1 Mg/0.2 Ml IVP 01/21/25 08:59 1 mg QDAY MARIANA Administration Ceftriaxone Sodium 1,000 mg/ 50 mls @ 100 mls/hr 12/22/24 21:00 Sodium Chloride IV 12/29/24 20:59 QDAY MARIANA Dextrose 1,000 mls @ 75 mls/hr 12/22/24 10:15 12/22/24 10:45 D5w IV 12/23/24 10:14 75 mls/hr .[id number] MARIANA Administration Ondansetron HCl 4 mg 12/21/24 20:06 Ondansetron Inj 2 Mg/Ml Inj 2 Ml IV 01/20/25 20:05 Q6H PRN NAUSEA OR VOMITING Protocol Pantoprazole Sodium 40 mg 12/21/24 21:00 12/22/24 09:36 Pantoprazole Inj 40 Mg Vial IVP 01/20/25 20:59 40 mg Q12HR MARIANA Administration Thiamine HCl 100 mg 12/22/24 09:00 12/22/24 09:36 Thiamine Inj 100 Mg/Ml Vial 2 Ml IM 01/21/25 08:59 100 mg QDAY MARIANA Administration Plan Ms. Mims is an 89-year-old female patient with past medical history of dementia, failure to thrive, coronary artery disease status post 2 stents and TIA brought to the ED from [facility] transitional care due to taachycardia, fever, generalized weakness and hematochezia. #Sepsis secondary to UTI #UTI - On admission SIRS 3/4: tachycardia, tachypnea, fever (temperature 101.0) and leukocytosis -Lactic Acid 3.5 -> 1.9 , Pt received 3L of fluid boluses -Chest x-ray showed emphysematous changes however it was negative for any pulmonary infection. Patient met sepsis criteria with a source of infection being urine and evidence of end organ damage (Pt has SIDRA) -Urinalysis positive for: leukocyte esterase, hematuria, pyuria and bacteriuria Plan -Start the patient on ceftriaxone 1 g IV 12/22- -Blood culture had no growth at 24 hrs -Urine cultures pending -Encourage oral intake as needed -Patient on PureWick #GI bleed, lower #Esophageal ulcers #History of gastritis -Per Pt's chart review, patient was admitted to the hospital 3 weeks ago for concerns for lower GI bleed. At that time EGD was done which showed esophageal ulcers and gastritis. However, because the patient's general condition the GI specialist Dr. Henriquez concluded that the patient is not candidate for colonoscopy and recommended conservative therapy. -The ED team reported that they called Dr. Henriquez in which she recommended no colonoscopy at this time, he is willing to place a PEG tube if family agree on that. On discussion with the daughter at the Ct she denied placing PEG tube for the patient at this time -Patient underwent CT scan on 27 November 2024 and showed colonic diverticulosis and constipation. -On presentation her hemoglobin was 10.6 after the patient was given 2.5 L of fluids her hemoglobin dropped to 8.6. Patient continues to have episodes of hematochezia in the ED -Pt continues to have multiple episodes of hematozia, discussed with granddaughter who does not want Pt to under go invasive work up including colonoscopy. Plan ? GI consultation to Dr. Henriquez was done, follow recommendations ? Start the patient on Protonix IV ? Repeat H&H ? Close monitoring for hemoglobin on daily basis ? Goals of care discussion done with Pt's grand daughter who wants hospice care #Hypernatremia #Hypokalemia #Hyperchloremia #SIDRA most likely prerenal -Patient electrolyte derangement most likely secondary to dehydration due to poor oral intake and infection -sodium level of 155, potassium 3.8, BUN of 74, serum creatinine 2.0, chloride 114, lactic acid 3.5 down trended to 1.9. -Patient was given 2 L of NS by the ED team initially and 500 mL of Ringer lactate. Pro-Brenton was negative. Plan ? KCl 40 mEq x 1 IV ? Start the patient on D5W 50 mL/h uptitrate according to sodium checks levels ? Sodium checks every 3 hours ? Avoid nephrotoxic medications ? Daily BMP #Acute encephalopathy most likely multifactorial secondary to dehydration vs. sepsis vs. worsening of dementia #Dehydration #Failure to thrive #History of dementia Patient body mass index of 19.1, there is temporal wasting, on examination patient is severely dehydrated. And found to have SIDRA Plan ? Nursing bedside swallow eval ? Neurochecks every 4 hours ? Referral to dietitian consult start ? Start the patient on folic acid, thiamine, zinc ? Glucerna as needed with meal #History of TIA #History of carotid artery disease Plan ? Hold home medications at this time due to lower GI bleed Health Maintenance Disposition: telemetry DVT Prophylaxis: SCD Q shift GI Prophylaxis: Pantoprozol-40 IV Qday Diet: NPO- pt is risk of aspiration Lines: Peripheral lines Code status: DNR/DNI Assessment and plan discussed with my senior resident Dr. Purcell & attending physician Dr. Mitul Briceno (PGY-1)- Internal medicine resident Attending Provider Attestation/Addendum I have discussed and was present for the essential components of the history, physical examination, diagnosis, and treatment plan with the resident. I agree with the patient's care as documented by the resident and amended herein by me. Tima Bauman DO. Although this document has been carefully reviewed, there may still be some phonetic and other typographical errors. These errors are purely grammatical due to imperfections in the software program and should not be construed in any way to compromise the substance of the patient's medical care during this visit.
[2024-12-22] MEDS: cefTRIAXone 1,000 MG in SODIUM CHLORIDE 0.9% (Popper) 50 ML 100 MG IV (20:29)
[2024-12-23] VITALS: BP 107/55; PULSE 73; PULSE 80; RESP 26; TEMP 36.5; O2SAT 100
[2024-12-23] MEDS: DEXTROSE 5%-WATER 1,000 ML 75 ML IV (00:13)
[2024-12-23 04:00] VITALS: BP 109/48; PULSE 66; PULSE 71; RESP 22; TEMP 36.3; O2SAT 99
[2024-12-23 05:01] VITALS: BMI 16.8
[2024-12-23 05:54] LABS: Basophils % (Auto) 0 % (0-2.5); Eosinophils # (Auto) 0.1 Thou/mm3 (0.0-0.5); Eosinophils % (Auto) 1 % (0-10); Immature Granulocytes % (Auto) 1 % (0-0); Lymphocytes # (Auto) 1.3 Thou/mm3 (1.0-4.8); Lymphocytes % (Auto) 9 % (10-50); Mean Corpuscular HGB Conc 32.3 g/dl (31.0-37.0); Mean Corpuscular Hemoglobin 32.4 pg (25.0-35.0); Mean Corpuscular Volume 101 fL (80-100); Monocytes # (Auto) 0.8 Thou/mm3 (0.0-0.8); Monocytes % (Auto) 6 % (0-12); Neutrophils # (Auto) 11.9 Thou/mm3 (1.8-7.7); Neutrophils % (Auto) 83 % (37-80); Nucleated Red Blood Cell % 0 /100 WBC (0); Platelet Count 216 Thou/mm3 (140-440); RDW Standard Deviation 45.8 fL (36.4-46.3); Red Blood Count 2.19 Miln/mm3 (4.00-5.20); White Blood Count 14.4 Thou/mm3 (3.6-11.0)
[2024-12-23 06:00] LABS: Hemoglobin 7.1 g/dL (12.0-16.0)
[2024-12-23 06:52] LABS: Alanine Aminotransferase < 7 U/L (10-49); Albumin, Serum 2.5 gm/dL (3.4-4.8); Alkaline Phosphatase 66 U/L (46-116); Anion Gap 9 (7-16); Aspartate Amino Transferase 11 U/L (0-34); BUN/Creatinine Ratio 38 Ratio (12-20); Bilirubin,Total 0.3 mg/dL (0.3-1.2); Blood Urea Nitrogen 34 mg/dL (9-23); Calcium 7.9 mg/dL (8.3-10.6); Calcium (Corrected) 9.1 mg/dL (8.5-10.1); Chloride 116 mMol/L (98-107); Creatinine (Component) 0.9 mg/dL (0.6-1.3); Estimated Creatinine Clearance 29.4 mL/min (>60); Globulin 2.5 gm/dL (2.3-3.5); Glucose 101 mg/dL (74-106); Osmolality,Calculated 301 (275-295); Phosphorous 2.4 mg/dL (2.4-5.1); Potassium 2.8 mMol/L (3.4-5.1); Sodium 148 mMol/L (136-145); eGFR > 60 See Note
[2024-12-23 08:00] VITALS: BP 106/49; PULSE 61; PULSE 70; RESP 21; TEMP 36.2; O2SAT 97
--- NOTE | 2024-12-23 09:08 | PC.SS ---
CUT OFF SAW OPERATOR conducted phone contact with the patient's granddaughter, Vega Mcgarry ; to confirm patient's transition to hospice care. Granddaughter informed CUT OFF SAW OPERATOR plan is to hold off on transitioning the patient to hospice. Granddaughter wants to meet with medical team prior to moving forward with hospice. Granddaughter to arrive at patient's bedside this morning.
[2024-12-23] MEDS: cefTRIAXone 1,000 MG in SODIUM CHLORIDE 0.9% (Popper) 50 ML 100 MG IV (09:46)
[2024-12-23] MEDS: PANTOPRAZOLE INJ 40 MG VIAL IVP ×2 (09:46→20:53)
[2024-12-23] MEDS: THIAMINE INJ 100 MG/ML VIAL 2 ML IM (09:47)
[2024-12-23] MEDS: FOLIC ACID INJ 1 MG/0.2 ML IVP (09:48)
[2024-12-23] MEDS: POTASSIUM CHL 10 mEq IVPB 10 MEQ/100 ML BAG 50 MEQ IV ×4 (09:53→16:31)
--- NOTE | 2024-12-23 10:30 | PC.SS ---
MICROFILM MOUNTER conducted bedside contact with the patient conduct initial assessment and to discuss discharge planning.? At bedside with patient was Vega figueroa . ?Granddaughter provided information for assessment and discharge planning.? Prior to admission patient was a resident at [facility].? Patient had been at facility for approximately 3 weeks.? Patient utilizes a walker to assist with ambulation. Patient does not utilize home oxygen.? Patient requires assistance with the completion of ADL?s.? Patient?s medical surrogate decision maker is [place], Vega Mcgarry.? Patient?s PCP is Dr. Clark Ruelas.? The patient does not possess any specialty providers.? The patient does not participate with dialysis.? Patient utilizes [facility] [employer] for medication services.? Discharge plan is for the patient to return home at the time of discharge.? S.S. to assist with arranging transportation for the patient if family is unable to provide transportation.? Following forms of DME requested: wheelchair and hospital bed.? No preferred vendor identified.? If home health referred, chrisughter did not identify preferred provider for home health agency.? Family has declined for the patient to return to SNF placement.? No further intervention required at this time, social organization professor will be available to address any further concerns.? Next of Kin: Vega Mcgarry D/C Plan: Home
--- NOTE | 2024-12-23 10:46 | CHAP ---
Patient was visited by a Spiritual Care volunteer on 12/23/2024 between 0900 and 0943 and received comfort, encouragement, and/or prayer.
--- NOTE | 2024-12-23 10:58 | PC.SS ---
DEHYDRATION UNIT OPERATOR received call from resident, Dr. Lozano; that hospice referral to be cancelled. Medical team confirmed with patient's granddaughter plan to not purse hospice servcies. DEHYDRATION UNIT OPERATOR confirmed with bruce's granddaughter plan to not pursue hospice services at this time. Discharge plan will be for the patient to return home with granddaughter once patient is medically cleared.
[2024-12-23 12:00] VITALS: BP 94/58; PULSE 69; PULSE 70; RESP 222; TEMP 36.6; O2SAT 97
--- NOTE | 2024-12-23 14:15 | PC.SS ---
Rounding Note: Hospice has been declined. D/C home within 1-2 days.
--- NOTE | 2024-12-23 14:16 | ESPR_ITS ---
<Statement entered by Wolfgang Lozano MD - 12/23/24 16:18> Patient was seen and examined at the bedside. No acute overnight events were reported. Discussion with patient's granddaughter was made and she stated that patient appears to be better today and they want a hold off on hospice for now. Patient herself wanted to proceed with oral diet therefore patient was started on dysphagia diet. GI specialist was consulted for evaluation and recommendations. Family does not want to proceed with colonoscopy given patient's current condition. Protein shakes were given with every meal. PT evaluation was ordered. Home health PT will be ordered as well. Urine culture positive for E. coli blood cultures growing GPC 1 out of 2 likely contamination. Will continue with Protonix IV twice daily and ceftriaxone. Pending GI recommendations. Potassium was repleted. All labs and orders were reviewed. I saw and examined the patient, and I agree with current management stated by Dr Janak MD,PGY1. Plan of care was discussed with the attending physician and resident physician. Disclaimer: Despite multiple revisions, due to the dictation software being used, the document bellow may not be free of grammatical errors including phonetic/typographic errors. However, this does not deter from our commitment to providing health care in the patient's best interest in mind. Dr. Blake MD, PGY 2 Documentation for date of: 12/23/24 Subjective Subjective Interval history: No acute overnight events reported. Patient seen and examined at bedside this morning. Patient appears to be much better on my examination this morning patient is engaging in conversation and responding appropriately to questions and answer. Patient also underwent swallow evaluation and dysphagia pur?ed diet is recommended. Patient's granddaughter is at bedside who sees the patient to have a increase energy today and continues to want to take her home however patient and granddaughter does not want hospice referral anymore as patient is appearing to be better today. Vitals are reviewed and patient is saturating on room air. Urine cultures are positive for E. coli and blood cultures showed GPC in 1-2 bottles. Labs show leukocytosis is downtrending and hemoglobin is 7.1, although granddaughter Vega continues to decline colonoscopy she still wishes for GI specialist Dr. Henriquez to evaluate her 1 more time to assess for her cause of bleeding. Patient's potassium was 2.8 this morning and 80 mEq is repleted. Patient is encouraged to increase oral diet and requested boost protein shake with every meal. Will also get physical therapy to evaluate the patient ability to mobilize. Patient has no other complaints. Exam Vital Signs Temp Pulse Resp BP Pulse Ox O2 Del Method O2 Flow Rate 97.1 F 69 21 H 106/49 L 97 Room Air 0 12/23/24 08:00 12/23/24 12:00 12/23/24 08:00 12/23/24 08:00 12/23/24 08:00 12/23/24 08:00 12/23/24 08:00 Narrative Exam GENERAL: Pt. is somnalent, frail, lethargic appearing elderly female NEURO: No focal neurological deficits noted on physical examination HEENT: Atraumatic, Normocephalic. mucous membranes dry. HEART: Normal Heart Sounds LUNGS: Clear to auscultation with no wheezing or crackles. ABDOMEN: soft, non-distended, non-tender, bowel sounds heard, no guarding or rebound tenderness SKIN: No Rash or ecchymoses EXTREMITIES: No edema, tenderness, pedal pulses palpated Objective Labs 12/23/24 05:36 12/23/24 05:36 Labs: Laboratory Results - last 24 hr 12/22/24 12/23/24 13:46 05:36 WBC 14.4 H RBC 2.19 L Hgb 7.8 L 7.1 L Hct 24.7 L 22.0 L MCV 101 H MCH 32.4 MCHC 32.3 RDW Std Deviation 45.8 Plt Count 216 Neut % (Auto) 83 H Lymph % (Auto) 9 L Cowley % (Auto) 6 Eos % (Auto) 1 Baso % (Auto) 0 Neut # (Auto) 11.9 H Lymph # (Auto) 1.3 Cowley # (Auto) 0.8 Eos # (Auto) 0.1 Baso # (Auto) 0.0 Immature Gran # (Auto) 0.20 H Absolute Nucleated RBC 0.00 Immature Gran % 1 H Nucleated RBC % 0 Sodium 148 H Potassium 2.8 L D Chloride 116 H Carbon Dioxide 23.0 Anion Gap 9 BUN 34 H Creatinine 0.9 Estim Creat Clear Calc 29.4 L eGFR > 60 BUN/Creatinine Ratio 38 H Glucose 101 Calculated Osmolality 301 H Calcium 7.9 L Corrected Calcium 9.1 Phosphorus 2.4 Magnesium 2.0 Total Bilirubin 0.3 AST 11 ALT < 7 L Alkaline Phosphatase 66 Total Protein 5.0 L Albumin 2.5 L Globulin 2.5 Albumin/Globulin Ratio 1.0 L Quality Measures Quality Measures VTE prophylaxis and sepsis Current suspected stage: sepsis Possible source: genitourinary Blood cultures ordered: yes Antibiotic ordered: Yes Advance care planning discussed with:: patient and child (granddaughter ) Assessment & Plan Assessment Current Active Medications: Generic Name Dose Route Start Last Admin Trade Name Freq PRN Reason Stop Dose Admin Acetaminophen 650 mg 12/21/24 20:06 Acetaminophen Supp 650 Mg Supp HI 01/20/25 20:05 Q6H PRN PAIN SCALE 1-3 (mild Folic Acid 1 mg 12/22/24 09:00 12/23/24 09:48 Folic Acid Inj 1 Mg/0.2 Ml IVP 01/21/25 08:59 1 mg QDAY MARIANA Administration Ceftriaxone Sodium 1,000 mg/ 50 mls @ 100 mls/hr 12/22/24 21:00 12/23/24 09:46 Sodium Chloride IV 12/29/24 20:59 100 mls/hr QDAY MARIANA Administration Non-Formulary Medication 2 mg 12/23/24 10:45 Brexpiprazole [Rexulti] PO 01/22/25 10:44 DAILY MARIANA Ondansetron HCl 4 mg 12/21/24 20:06 Ondansetron Inj 2 Mg/Ml Inj 2 Ml IV 01/20/25 20:05 Q6H PRN NAUSEA OR VOMITING Protocol Pantoprazole Sodium 40 mg 12/21/24 21:00 12/23/24 09:46 Pantoprazole Inj 40 Mg Vial IVP 01/20/25 20:59 40 mg Q12HR MARIANA Administration Thiamine HCl 100 mg 12/22/24 09:00 12/23/24 09:47 Thiamine Inj 100 Mg/Ml Vial 2 Ml IM 01/21/25 08:59 100 mg QDAY MARIANA Administration Plan Ms. Mims is an 89-year-old female patient with past medical history of dementia, failure to thrive, coronary artery disease status post 2 stents and TIA brought to the ED from [facility] transitional care due to taachycardia, fever, generalized weakness and hematochezia. #Sepsis secondary to UTI #E Coli - UTI - On admission SIRS 3/4: tachycardia, tachypnea, fever (temperature 101.0) and leukocytosis -Lactic Acid 3.5 -> 1.9 , Pt received 3L of fluid boluses -Chest x-ray showed emphysematous changes however it was negative for any pulmonary infection. Patient met sepsis criteria with a source of infection being urine and evidence of end organ damage (Pt has SIDRA) -Urinalysis positive for: leukocyte esterase, hematuria, pyuria and bacteriuria Plan -Start the patient on ceftriaxone 1 g IV 12/22- -Blood culture 10/16 GPC likely contamination -Urine cultures grew E. coli -Encourage oral intake as needed -Patient on PureWick #GI bleed, lower #Esophageal ulcers #History of gastritis -Per Pt's chart review, patient was admitted to the hospital 3 weeks ago for concerns for lower GI bleed. At that time EGD was done which showed esophageal ulcers and gastritis. However, because the patient's general condition the GI specialist Dr. Henriquez concluded that the patient is not candidate for colonoscopy and recommended conservative therapy. -The ED team reported that they called Dr. Henriquez in which she recommended no colonoscopy at this time, he is willing to place a PEG tube if family agree on that. On discussion with the daughter at the Ct she denied placing PEG tube for the patient at this time -Patient underwent CT scan on 27 November 2024 and showed colonic diverticulosis and constipation. -On presentation her hemoglobin was 10.6 after the patient was given 2.5 L of fluids her hemoglobin dropped to 8.6. Patient continues to have episodes of hematochezia in the ED -Pt continues to have multiple episodes of hematozia, discussed with granddaughter who does not want Pt to under go invasive work up including colonoscopy. Plan ? GI consultation to Dr. Henriquez, appreciate recommendations ? Protonix IV BID ? Repeat H&H ? Close monitoring for hemoglobin on daily basis ? Goals of care discussion done with Pt's grand daughter who wants hospice care #Hypernatremia #Hypokalemia #Hyperchloremia #SIDRA most likely prerenal -Patient electrolyte derangement most likely secondary to dehydration due to poor oral intake and infection -sodium level of 155, potassium 3.8, BUN of 74, serum creatinine 2.0, chloride 114, lactic acid 3.5 down trended to 1.9. -Patient was given 2 L of NS by the ED team initially and 500 mL of Ringer lactate. Pro-Brenton was negative. Plan ? KCl 40 mEq x 1 IV ? Start the patient on D5W 50 mL/h uptitrate according to sodium checks levels ? Sodium checks every 3 hours ? Avoid nephrotoxic medications ? Daily BMP #Acute encephalopathy most likely multifactorial secondary to dehydration vs. sepsis vs. worsening of dementia - resolved #Dehydration #Failure to thrive #History of dementia Patient body mass index of 19.1, there is temporal wasting, on examination patient is severely dehydrated. And found to have SIDRA Plan: -Referral to dietitian consult start -swallow evaluation completed- dysphagia pureed diet ordered -Start the patient on folic acid, thiamine, zinc -Boost protein shake as needed with meal -resumed home rexulti #History of TIA #History of carotid artery disease Plan ? Hold home medications at this time due to lower GI bleed Health Maintenance Disposition: telemetry DVT Prophylaxis: SCD Q shift GI Prophylaxis: Pantoprozol-40 IV Qday Diet: dysphagia pureed diet Lines: Peripheral lines Code status: DNR/DNI Assessment and plan discussed with my senior resident Dr. Lozano & attending physician Dr. Mitul Briceno (PGY-1)- Internal medicine resident Attending Provider Attestation/Addendum I have discussed and was present for the essential components of the history, physical examination, diagnosis, and treatment plan with the resident. I agree with the patient's care as documented by the resident and amended herein by me. Tima Bauman, . Patient seen and evaluated this AM. Vital signs stable, patient afebrile overnight. Patient clinically looks much better today, more awake alert, better color in her face. Significant labs included WBC of 14, hemoglobin low at 7.1, sodium 148, potassium low at 2.8 which will be repleted, albumin low at 2.5, urine cultures demonstrating E. coli thus far, blood cultures demonstrating gram-positive cocci in 1 set. Will continue ceftriaxone at this time for the patient's UTI, will also continue Protonix 40 mg IV twice daily. Physical therapy is also been ordered. I do not think GI will intervene however we will consult regardless for GI bleed in which the patient came in for hematochezia. Hospice discussions took place yesterday however the family wishes not to pursue hospice at this time due to improvement in condition after IV antibiotics. Will continue to monitor closely while she is here. Although this document has been carefully reviewed, there may still be some phonetic and other typographical errors. These errors are purely grammatical due to imperfections in the software program and should not be construed in any way to compromise the substance of the patient's medical care during this visit.
[2024-12-23] MEDS: POTASSIUM CHLORIDE 10% 20 MEQ/15 ML UDC 40 MEQ PO (14:40)
[2024-12-23 16:00] VITALS: BP 100/52; PULSE 65; PULSE 70; RESP 22; TEMP 36.6; O2SAT 97
[2024-12-23 16:42] VITALS: BMI 12.0
[2024-12-23 20:00] VITALS: BP 103/47; PULSE 68; PULSE 74; RESP 22; TEMP 36.4; O2SAT 95
--- NOTE | 2024-12-23 22:43 | PD.IMCONS ---
HPI Data of Consult Requesting Physician: Miles Bauman DO Primary Care Provider: Clark Ruelas MD Consult Narrative Reason for consult: Rectal bleeding History of present illness: 89 years old female [facility] room because of rectal bleeding Admitting hemoglobin hematocrit was 10.8 and 33.3 which has gone down to 7.1 and 22.0 Patient did have an admission earlier in November where upper endoscopy had shown distal esophageal ulcers At that point I considered the patient not to be extubated candidate for colonoscopy At this time the clinical picture is of rectal bleeding Patient does have a history of dementia coronary artery disease status post PTCA cc:: cc: Miles Bauman DO Review of Systems Review of Systems ROS Unobtainable: unobtainable due to medical condition Past Medical History Surgical History OTHER SURGICAL HX: As in the history of present illness Meds Home Medications and Allergies Home Medications ?Medication ?Instructions ?Recorded ?Confirmed ?Type brexpiprazole 1 mg tablet (Rexulti) 2 mg PO DAILY 11/28/24 12/23/24 History Allergies Allergy/AdvReac Type Severity Reaction Status Date / Time amlodipine Allergy Drowsy Verified 12/03/24 10:55 Exam Vital Signs Temp Pulse Resp BP Pulse Ox O2 Del Method O2 Flow Rate 97.6 F 74 22 H 103/47 L 95 Room Air 0 12/23/24 20:00 12/23/24 20:00 12/23/24 20:00 12/23/24 20:00 12/23/24 20:00 12/23/24 20:00 12/23/24 16:00 Routine Respiratory Exam Comments: Normal to auscultation Routine Abdominal Exam Comments: Soft nontender Results Labs 12/23/24 05:36 12/23/24 05:36 Labs: Short CBC 12/23/24 Range/Units 05:36 WBC 14.4 H (3.6-11.0) Thou/mm3 Hgb 7.1 L (12.0-16.0) g/dL Hct 22.0 L (36.0-46.0) % Plt Count 216 (140-440) Thou/mm3 BMP 12/23/24 05:36 Sodium 148 H Potassium 2.8 L D Chloride 116 H Carbon Dioxide 23.0 BUN 34 H Creatinine 0.9 Glucose 101 Calcium 7.9 L Liver Function 12/23/24 Range/Units 05:36 Total Bilirubin 0.3 (0.3-1.2) mg/dL AST 11 (0-34) U/L ALT < 7 L (10-49) U/L Alkaline Phosphatase 66 (46-116) U/L Albumin 2.5 L (3.4-4.8) gm/dL Assessment and Plan Additional Assessment & Plan Additional Plan: # Hematochezia # Acute posthemorrhagic anemia Spoke with the granddaughter over the phone this night Discussed that patient needs a colonoscopy She is going to think about and let me know by tomorrow if the answer is yes we will do a GoLytely prep either orally or via NGT and do a colonoscopy prior to discharge Other medical problems include # Dementia # Coronary artery disease status post PTCA Thank you very much for the opportunity to participate in this patient
[2024-12-24] VITALS (13 sets, daily range): BP systolic 102–142; BP diastolic 46–56; PULSE 66–84; RESP 17–24; TEMP 36.1–37.3; O2SAT 91–99; BMI 17.1
[2024-12-24 05:16] LABS: Basophils % (Auto) 0 % (0-2.5); Eosinophils # (Auto) 0.2 Thou/mm3 (0.0-0.5); Eosinophils % (Auto) 2 % (0-10); Immature Granulocytes % (Auto) 3 % (0-0); Immature Granulocytes Auto 0.27 Thou/mm3 (0.00-0.00); Lymphocytes # (Auto) 1.5 Thou/mm3 (1.0-4.8); Lymphocytes % (Auto) 14 % (10-50); Mean Corpuscular HGB Conc 31.4 g/dl (31.0-37.0); Mean Corpuscular Hemoglobin 32.5 pg (25.0-35.0); Mean Corpuscular Volume 104 fL (80-100); Monocytes # (Auto) 0.7 Thou/mm3 (0.0-0.8); Monocytes % (Auto) 7 % (0-12); Neutrophils # (Auto) 7.8 Thou/mm3 (1.8-7.7); Neutrophils % (Auto) 75 % (37-80); Nucleated Red Blood Cell # 0.02 Thou/mm3 (0.00-0.00); Nucleated Red Blood Cell % 0 /100 WBC (0); Platelet Count 235 Thou/mm3 (140-440); RDW Standard Deviation 46.9 fL (36.4-46.3); Red Blood Count 2.12 Miln/mm3 (4.00-5.20); White Blood Count 10.4 Thou/mm3 (3.6-11.0)
[2024-12-24 05:23] LABS: Hemoglobin 6.9 g/dL (12.0-16.0)
--- NOTE | 2024-12-24 05:27 | PC.NURSE ---
Dr. Harden was made aware of pt's H/H of 6.9/22.0. No new orders received for pt at this time.
[2024-12-24 06:02] LABS: Alanine Aminotransferase < 7 U/L (10-49); Albumin, Serum 2.5 gm/dL (3.4-4.8); Alkaline Phosphatase 68 U/L (46-116); Anion Gap 9 (7-16); Aspartate Amino Transferase 11 U/L (0-34); BUN/Creatinine Ratio 22 Ratio (12-20); Bilirubin,Total 0.5 mg/dL (0.3-1.2); Blood Urea Nitrogen 20 mg/dL (9-23); Calcium 8.1 mg/dL (8.3-10.6); Calcium (Corrected) 9.3 mg/dL (8.5-10.1); Carbon Dioxide 22.3 mMol/L (20.0-31.0); Chloride 115 mMol/L (98-107); Creatinine (Component) 0.9 mg/dL (0.6-1.3); Estimated Creatinine Clearance 29.4 mL/min (>60); Globulin 2.5 gm/dL (2.3-3.5); Glucose 90 mg/dL (74-106); Osmolality,Calculated 293 (275-295); Potassium 3.6 mMol/L (3.4-5.1); Sodium 146 mMol/L (136-145); eGFR > 60 See Note
--- NOTE | 2024-12-24 09:38 | PC.NURSE ---
Patient refusing AM medications, educated patient importance of critical medication--Dr. Gil made aware. Patient refusing blood transfusion-- Dr. Gil at bedside to speak with patient. Vega granddaughter called this morning, CONCHIS, informed she will be here this morning.
[2024-12-24] MEDS: PANTOPRAZOLE INJ 40 MG VIAL IVP ×2 (10:40→20:35)
[2024-12-24] MEDS: cefTRIAXone 1,000 MG in SODIUM CHLORIDE 0.9% (Popper) 50 ML 100 MG IV (10:40)
[2024-12-24] MEDS: THIAMINE INJ 100 MG/ML VIAL 2 ML IM (10:41)
[2024-12-24] MEDS: FOLIC ACID INJ 1 MG/0.2 ML IVP (10:41)
[2024-12-24] MEDS: NAPH,KPH MBDB 1 PACKET (1.5 GM) PO (10:42)
[2024-12-24 11:31] LABS: Path Review Blood Smear Sent to Pathologist
--- NOTE | 2024-12-24 13:08 | PC.SS ---
Hospital Beds Patient?s diagnosis requires positioning of the head or upper body to be elevated more than 30 degrees. Also the diagnosis requires positioning in order to alleviate pain and if the patient requires frequent changes in the body positioning and/or has an immediate need for change in the body position. Pillows and wedges have been considered and ruled out. Pt is in need of a semi-electric hospital bed for a safe discharge. WheelChairs Patients diagnosis creates mobility limitations that significantly impairs ability to participate in the patients activities of daily living either in their entirety, or in a reasonable time frame in the home and the patients mobility limitations can not be sufficiently resolved with an appropriately fitted cane or walker. Also the use of a manual wheelchair will sufficiently improve patients ability to participate in the activities of daily living in the home and the patient is willing to use the wheelchair that is provided in the home. The patient has some one in the home that is available, willing and able to provide assistance with the wheelchair.
--- NOTE | 2024-12-24 13:16 | PC.SS ---
SS follow up note; SS Contacted patient's grand daughter, Vega in regards to DME, she expressed she still does not know the exact discharge plan patient and requested for SS to hold off on DME for now. SS inquired about submitting for SNF and patient's daughter requested to hold off for now. SS will stand by for further needs.
--- NOTE | 2024-12-24 15:18 | ESPR_ITS ---
<Statement entered by Wolfgang Lozano MD - 12/24/24 15:57> Patient was seen and examined at the bedside. Overnight, patient had a drop in hemoglobin to 6.9. However patient refused PRBC transfusion this morning-. Granddaughter was present at bedside and another goals of care discussion was performed. We explained the importance of receiving transfusion and she was agreeable to that as patient was not fully oriented. Post H&H follow-up. GI recommended that patient will need to have colonoscopy if family is agreeable. We tried calling her daughter x 2 however she did not receive the phone call. Will likely do goals of care discussion tomorrow. All labs and orders were reviewed. I saw and examined the patient, and I agree with current management stated by Dr Janak MD,PGY1. Plan of care was discussed with the attending physician and resident physician. Disclaimer: Despite multiple revisions, due to the dictation software being used, the document bellow may not be free of grammatical errors including phonetic/typographic errors. However, this does not deter from our commitment to providing health care in the patient's best interest in mind. Dr. Nathalie MD, PGY 2 Documentation for date of: 12/24/24 Subjective Subjective Interval history: No acute overnight events reported. Patient seen and examined at bedside this morning. Patient is a little agitated this morning and is refusing medications as well as refusing blood products as patient's hemoglobin is 6.9 and 1 unit of pRBC is ordered. Contacted the granddaughter Vega who was able to come to the hospital and speak to her grandmother and patient was then agreeable to taking medications. Per granddaughter's request asked Dr. Henriquez regarding sigmoidoscopy who recommends colonoscopy only for a full workup for patient's source of hematochezia. Initially patient's granddaughter Vega who has the advanced medical directive was not agreeable to colonoscopy however she stated she would think about it. After speaking to GI specialist Dr. Henriquez, we were not able to get hold of patient's granddaughter Vega for a decision. Patient has no other complaints vitals are stable, labs are stable with the exception of hemoglobin of 6.9, Hct 22.0, MCV 104, sodium 146, chloride 115, phosphorous 2.0. Will continue ceftriaxone for UTI and Protonix were increased to twice daily. Patient continues to have poor oral intake although boost plus is added to every meal Exam Vital Signs Temp Pulse Resp BP Pulse Ox O2 Del Method O2 Flow Rate 98.0 F 69 18 116/56 L 97 Room Air 0 12/24/24 14:26 12/24/24 14:26 12/24/24 14:26 12/24/24 14:26 12/24/24 14:26 12/24/24 07:54 12/23/24 16:00 Narrative Exam GENERAL: frail, lethargic appearing elderly female NEURO: No focal neurological deficits noted on physical examination HEENT: Atraumatic, Normocephalic. mucous membranes dry. HEART: Normal Heart Sounds LUNGS: Clear to auscultation with no wheezing or crackles. ABDOMEN: soft, non-distended, non-tender, bowel sounds heard, no guarding or rebound tenderness SKIN: No Rash or ecchymoses, EXTREMITIES: No edema, tenderness, pedal pulses palpated Objective Labs 12/24/24 04:41 12/24/24 04:41 Labs: Laboratory Results - last 24 hr 12/24/24 12/24/24 04:41 06:40 WBC 10.4 RBC 2.12 L Hgb 6.9 L* Hct 22.0 L MCV 104 H MCH 32.5 MCHC 31.4 RDW Std Deviation 46.9 H Plt Count 235 Neut % (Auto) 75 Lymph % (Auto) 14 [place] % (Auto) 7 Eos % (Auto) 2 Baso % (Auto) 0 Neut # (Auto) 7.8 H Lymph # (Auto) 1.5 [place] # (Auto) 0.7 Eos # (Auto) 0.2 Baso # (Auto) 0.0 Immature Gran # (Auto) 0.27 H Absolute Nucleated RBC 0.02 H Immature Gran % 3 H Nucleated RBC % 0 Smear Path Review Sent to Pathologist Sodium 146 H Potassium 3.6 D Chloride 115 H Carbon Dioxide 22.3 Anion Gap 9 BUN 20 Creatinine 0.9 Estim Creat Clear Calc 29.4 L eGFR > 60 BUN/Creatinine Ratio 22 H Glucose 90 Calculated Osmolality 293 Calcium 8.1 L Corrected Calcium 9.3 Phosphorus 2.0 L Magnesium 2.0 Total Bilirubin 0.5 AST 11 ALT < 7 L Alkaline Phosphatase 68 Total Protein 5.0 L Albumin 2.5 L Globulin 2.5 Albumin/Globulin Ratio 1.0 L Blood Type O Positive Antibody Screen NEGATIVE Crossmatch See Detail Blood Bank Wristband ID Yes Quality Measures Quality Measures VTE prophylaxis and sepsis Current suspected stage: sepsis Possible source: genitourinary Blood cultures ordered: yes Antibiotic ordered: Yes Advance care planning discussed with:: other Assessment & Plan Assessment Current Active Medications: Generic Name Dose Route Start Last Admin Trade Name Freq PRN Reason Stop Dose Admin Acetaminophen 650 mg 12/21/24 20:06 Acetaminophen Supp 650 Mg Supp [place] 01/20/25 20:05 Q6H PRN PAIN SCALE 1-3 (mild Brexpiprazole [ 0 ea 12/23/24 17:45 12/24/24 12:40 Rexulti] 2 Mg Tablet PO 01/22/25 17:44 Not Given QDAY MARIANA Folic Acid 1 mg 12/22/24 09:00 12/24/24 10:41 Folic Acid Inj 1 Mg/0.2 Ml IVP 01/21/25 08:59 1 mg QDAY MARIANA Administration Ceftriaxone Sodium 1,000 mg/ 50 mls @ 100 mls/hr 12/22/24 21:00 12/24/24 10:40 Sodium Chloride IV 12/29/24 20:59 100 mls/hr QDAY MARIANA Administration Ondansetron HCl 4 mg 12/21/24 20:06 Ondansetron Inj 2 Mg/Ml Inj 2 Ml IV 01/20/25 20:05 Q6H PRN NAUSEA OR VOMITING Protocol Pantoprazole Sodium 40 mg 12/21/24 21:00 12/24/24 10:40 Pantoprazole Inj 40 Mg Vial IVP 01/20/25 20:59 40 mg Q12HR MARIANA Administration Thiamine HCl 100 mg 12/22/24 09:00 12/24/24 10:41 Thiamine Inj 100 Mg/Ml Vial 2 Ml IM 01/21/25 08:59 100 mg QDAY MARIANA Administration Plan Ms. Mims is an 89-year-old female patient with past medical history of dementia, failure to thrive, coronary artery disease status post 2 stents and TIA brought to the ED from [facility] transitional care due to taachycardia, fever, generalized weakness and hematochezia. #Sepsis secondary to UTI #E Coli - UTI - On admission SIRS 3/4: tachycardia, tachypnea, fever (temperature 101.0) and leukocytosis -Lactic Acid 3.5 -> 1.9 , Pt received 3L of fluid boluses -Chest x-ray showed emphysematous changes however it was negative for any pulmonary infection. Patient met sepsis criteria with a source of infection being urine and evidence of end organ damage (Pt has SIDRA) -Urinalysis positive for: leukocyte esterase, hematuria, pyuria and bacteriuria Plan -Start the patient on ceftriaxone 1 g IV 12/22- -Blood culture /2 GPC likely contamination -Urine cultures grew E. coli -Encourage oral intake as needed -Patient on PureWick #GI bleed, lower #Esophageal ulcers #History of gastritis -Per Pt's chart review, patient was admitted to the hospital 3 weeks ago for concerns for lower GI bleed. At that time EGD was done which showed esophageal ulcers and gastritis. However, because the patient's general condition the GI specialist Dr. Henriquez concluded that the patient is not candidate for colonoscopy and recommended conservative therapy. -The ED team reported that they called Dr. Henriquez in which she recommended no colonoscopy at this time, he is willing to place a PEG tube if family agree on that. On discussion with the daughter at the Ct she denied placing PEG tube for the patient at this time -Patient underwent CT scan on 27 November 2024 and showed colonic diverticulosis and constipation. -On presentation her hemoglobin was 10.6 after the patient was given 2.5 L of fluids her hemoglobin dropped to 8.6. Patient continues to have episodes of hematochezia in the ED -Pt continues to have multiple episodes of hematozia, discussed with granddaughter who does not want Pt to under go invasive work up including colonoscopy. Plan -GI consultation to Dr. Henriquez, appreciate recommendations -Protonix IV BID -monitor daily CBC and transfuse as needed -Pt received 1 unit pRBCs on 12/24 for Hgb 6.9 -Goals of care discussion done with Pt's grand daughter who wanted hospice care on 12/22, however pt appeared to improved with more awake, oriented and responsive the next day therefore the granddaughter changed mind and decided against hospice. -Per Martinez, he is agreeable to colonoscopy only for the patient and no sigmoidoscopy, awaiting granddaughters decision on colonoscopy #Hypernatremia #Hypokalemia- resolved #Hyperchloremia #SIDRA most likely prerenal - improved -Patient electrolyte derangement most likely secondary to dehydration due to poor oral intake and infection -sodium level of 155, potassium 3.8, BUN of 74, serum creatinine 2.0, chloride 114, lactic acid 3.5 down trended to 1.9. -Patient was given 2 L of NS by the ED team initially and 500 mL of Ringer lactate. Pro-B[place]on was negative. -on admission pt was started on D5W which improved Na Plan -will continue to monitor with daily labs #Acute encephalopathy most likely multifactorial secondary to dehydration vs. sepsis vs. worsening of dementia - resolved #Dehydration #Failure to thrive #History of dementia Patient body mass index of 19.1, there is temporal wasting, on examination patient is severely dehydrated. And found to have SIDRA Plan: -Referral to dietitian consult start -swallow evaluation completed- dysphagia pureed diet ordered -Start the patient on folic acid, thiamine, zinc -Boost plus protein shake as needed with meal -resumed home rexulti #History of TIA #History of carotid artery disease Plan ? Hold home medications at this time due to lower GI bleed Health Maintenance Disposition: telemetry DVT Prophylaxis: SCD Q shift GI Prophylaxis: Pantoprozol-40 IV BID Diet: dysphagia pureed diet with boost plus protein shakes Lines: Peripheral lines Code status: DNR/DNI Assessment and plan discussed with my senior resident Dr. Lozano & attending physician Dr. Mitul Briceno (PGY-1)- Internal medicine resident Attending Provider Attestation/Addendum I have discussed and was present for the essential components of the history, physical examination, diagnosis, and treatment plan with the resident. I agree with the patient's care as documented by the resident and amended herein by me. Tima Bauman DO. Patient seen and evaluated this AM. Vital signs stable, patient afebrile overnight however a bit more encephalopathic today. Hemoglobin low at 6.9, patient initially was refusing any lab draws or medications this morning however her granddaughter came and convinced her otherwise. Dr. Henriquez is going to do a colonoscopy for GI bleed however the patient's granddaughter is leaning towards not doing the procedure. Per Dr. Henriquez, even a limited scope such as a anoscopy or sigmoidoscopy would not be warranted. Patient's granddaughter initially wanted hospice however considering a bit of improvement yesterday, she reversed the decision. If she is refusing workup and treatment going forward, we will have no option but to send her back to SNF or home with her granddaughter. On her last visit she also had a hard time with making decisions for the patient. Urine cultures are demonstrating E. coli and the patient is on ceftriaxone. Will continue to monitor closely and follow-up later this afternoon with the patient's granddaughter for a plan going forward. Although this document has been carefully reviewed, there may still be some phonetic and other typographical errors. These errors are purely grammatical due to imperfections in the software program and should not be construed in any way to compromise the substance of the patient's medical care during this visit.
[2024-12-24 16:38] LABS: Hematocrit 27.4 % (36.0-46.0)
[2024-12-24 16:39] LABS: Hemoglobin 8.8 g/dL (12.0-16.0)
--- NOTE | 2024-12-24 22:49 | ESPR_ITS ---
Documentation for date of: 12/24/24 Subjective Subjective Interval history: Patient granddaughter has refused colonoscopy and the colonoscopy prep which is quite understandable Exam Vital Signs Temp Pulse Resp BP Pulse Ox O2 Del Method O2 Flow Rate 99.2 F 75 17 119/54 L 97 Room Air 0 12/24/24 20:00 12/24/24 20:00 12/24/24 20:00 12/24/24 20:00 12/24/24 20:00 12/24/24 20:00 12/24/24 20:00 Objective Labs 12/24/24 16:10 12/24/24 04:41 Labs: Laboratory Results - last 24 hr 12/24/24 12/24/24 12/24/24 04:41 06:40 16:10 WBC 10.4 RBC 2.12 L Hgb 6.9 L* 8.8 L D Hct 22.0 L 27.4 L MCV 104 H MCH 32.5 MCHC 31.4 RDW Std Deviation 46.9 H Plt Count 235 Neut % (Auto) 75 Lymph % (Auto) 14 [place] % (Auto) 7 Eos % (Auto) 2 Baso % (Auto) 0 Neut # (Auto) 7.8 H Lymph # (Auto) 1.5 [place] # (Auto) 0.7 Eos # (Auto) 0.2 Baso # (Auto) 0.0 Immature Gran # (Auto) 0.27 H Absolute Nucleated RBC 0.02 H Immature Gran % 3 H Nucleated RBC % 0 Smear Path Review Sent to Pathologist Sodium 146 H Potassium 3.6 D Chloride 115 H Carbon Dioxide 22.3 Anion Gap 9 BUN 20 Creatinine 0.9 Estim Creat Clear Calc 29.4 L eGFR > 60 BUN/Creatinine Ratio 22 H Glucose 90 Calculated Osmolality 293 Calcium 8.1 L Corrected Calcium 9.3 Phosphorus 2.0 L Magnesium 2.0 Total Bilirubin 0.5 AST 11 ALT < 7 L Alkaline Phosphatase 68 Total Protein 5.0 L Albumin 2.5 L Globulin 2.5 Albumin/Globulin Ratio 1.0 L Blood Type O Positive Antibody Screen NEGATIVE Crossmatch See Detail Blood Bank Wristband ID Yes Impressions Impression: Rectal bleeding managed conservatively with blood transfusion as needed as the granddaughter who is the decision-maker has refused her grandmother to undergo colonoscopy I talked to her personally Assessment & Plan A&P Narrative # Hematochezia # Acute posthemorrhagic anemia Spoke with the granddaughter over the phone this night Discussed that patient needs a colonoscopy She is going to think about and let me know by tomorrow if the answer is yes we will do a GoLytely prep either orally or via NGT and do a colonoscopy prior to discharge Other medical problems include # Dementia # Coronary artery disease status post PTCA Thank you very much for the opportunity to participate in this patient Time Spent With Patient Time: Total time spent is greater than 50% in coordination of care (as documented) at patient's floor/unit and/or counseling patient:
[2024-12-25] VITALS: BP 124/53; PULSE 125; PULSE 77; RESP 21; TEMP 37.1; O2SAT 96
[2024-12-25 04:00] VITALS: BP 140/59; PULSE 67; PULSE 87; RESP 21; TEMP 36.4; O2SAT 95
[2024-12-25 06:00] VITALS: BMI 17.1
[2024-12-25 06:02] LABS: Basophils % (Auto) 1 % (0-2.5); Eosinophils # (Auto) 0.1 Thou/mm3 (0.0-0.5); Eosinophils % (Auto) 2 % (0-10); Hematocrit 28.8 % (36.0-46.0); Hemoglobin 9.3 g/dL (12.0-16.0); Immature Granulocytes % (Auto) 5 % (0-0); Immature Granulocytes Auto 0.38 Thou/mm3 (0.00-0.00); Lymphocytes # (Auto) 1.2 Thou/mm3 (1.0-4.8); Lymphocytes % (Auto) 15 % (10-50); Mean Corpuscular HGB Conc 32.3 g/dl (31.0-37.0); Mean Corpuscular Hemoglobin 32.9 pg (25.0-35.0); Mean Corpuscular Volume 102 fL (80-100); Monocytes # (Auto) 0.7 Thou/mm3 (0.0-0.8); Monocytes % (Auto) 8 % (0-12); Neutrophils # (Auto) 5.5 Thou/mm3 (1.8-7.7); Neutrophils % (Auto) 69 % (37-80); Nucleated Red Blood Cell % 0 /100 WBC (0); Platelet Count 253 Thou/mm3 (140-440); RDW Standard Deviation 48.5 fL (36.4-46.3); Red Blood Count 2.83 Miln/mm3 (4.00-5.20); White Blood Count 7.9 Thou/mm3 (3.6-11.0)
[2024-12-25 06:53] LABS: Alanine Aminotransferase < 7 U/L (10-49); Albumin, Serum 2.7 gm/dL (3.4-4.8); Alkaline Phosphatase 71 U/L (46-116); Anion Gap 11 (7-16); Aspartate Amino Transferase 18 U/L (0-34); BUN/Creatinine Ratio 20 Ratio (12-20); Bilirubin,Total 0.8 mg/dL (0.3-1.2); Blood Urea Nitrogen 16 mg/dL (9-23); Calcium 8.1 mg/dL (8.3-10.6); Calcium (Corrected) 9.1 mg/dL (8.5-10.1); Carbon Dioxide 22.9 mMol/L (20.0-31.0); Chloride 114 mMol/L (98-107); Creatinine (Component) 0.8 mg/dL (0.6-1.3); Estimated Creatinine Clearance 33.7 mL/min (>60); Globulin 2.8 gm/dL (2.3-3.5); Glucose 81 mg/dL (74-106); Magnesium 2.1 mg/dL (1.6-2.6); Osmolality,Calculated 294 (275-295); Phosphorous 2.5 mg/dL (2.4-5.1); Potassium 3.1 mMol/L (3.4-5.1); Sodium 148 mMol/L (136-145); Total Protein 5.5 gm/dL (5.7-8.2); eGFR > 60 See Note
[2024-12-25 08:00] VITALS: BP 130/55; PULSE 65; PULSE 71; RESP 17; TEMP 36.6; O2SAT 94
--- NOTE | 2024-12-25 08:26 | PC.SS ---
Addendum entered by Anh Macario 12/25/24 14:32: SS followed up with patient's grand daughter Vega in regards to chosen SNF, She reported she needs more time and will be going to [facility] to do a walk through, she also inquired about [facility], SS contacted Ginger from [facility] and she informed SS that they might possible be able to accept patient over the weekend, however bed availability was pending. Original Note: SS follow up note; SS was contacted my [employer], Corbin and reported that Dr. Lozano informed him that patient's grand daughter would like patient to discharge to SNF. SS submitted SNF inquiry through [employer].
[2024-12-25] MEDS: cefTRIAXone 1,000 MG in SODIUM CHLORIDE 0.9% (Popper) 50 ML 100 MG IV (09:03)
[2024-12-25] MEDS: FOLIC ACID INJ 1 MG/0.2 ML IVP (09:03)
[2024-12-25] MEDS: PANTOPRAZOLE INJ 40 MG VIAL IVP ×2 (09:04→20:08)
[2024-12-25] MEDS: THIAMINE INJ 100 MG/ML VIAL 2 ML IM (09:04)
[2024-12-25] MEDS: POTASSIUM CHLORIDE 10% 20 MEQ/15 ML UDC 40 MEQ PO (10:33)
[2024-12-25] MEDS: MIRTAZAPINE 15 MG TABLET PO (10:33)
[2024-12-25] MEDS: SODIUM CHLORIDE 0.45 % 250 ML 50 ML IV (11:41)
[2024-12-25 12:00] VITALS: BP 138/57; PULSE 62; PULSE 64; RESP 18; TEMP 36.1; O2SAT 96
[2024-12-25 14:40] LABS: Sodium 149 mMol/L (136-145)
--- NOTE | 2024-12-25 15:08 | PD.RESPRO ---
Documentation for date of: 12/25/24 Subjective Subjective Interval history: Patient was seen and examined at the bedside this morning. Patient appears to be feeling weak and stated that she has difficulty in eating as she does not have an appetite. No acute overnight events were reported. Blood pressure was stable this morning. Hemoglobin remained stable at 9.3. Chemistry panel showed mild hypernatremia and hypokalemia. Blood glucose of 81 mg/dL. Blood cultures are coming up GPC 2 out of 2 therefore we repeated blood cultures. Patient was given half-normal saline 250 x 1. Will follow-up with new blood cultures and plan is to discharge tomorrow with new POLST form. Granddaughter was contacted via phone call and she reported that she will be coming tomorrow to sign it as she left in afternoon. Exam Vital Signs Temp Pulse Resp BP Pulse Ox O2 Del Method O2 Flow Rate 97.0 F 64 18 138/57 H 96 Room Air 0 12/25/24 12:00 12/25/24 12:00 12/25/24 12:00 12/25/24 12:00 12/25/24 12:00 12/25/24 12:12/25/24 04:00 Narrative Exam GENERAL APPEARANCE: Patient is frail appearing female. Saturating well on room air. HEENT: NC, AT. MMM. EOMI, clear conjunctiva, oropharynx clear. NECK: Supple without lymphadenopathy. No stiffness or restricted ROM. HEART: Regular rate and regular rhythm, normal S1/S2, no m/r/g LUNGS: CTAB, moving air well. No crackles or wheezes are heard. ABDOMEN: Soft, nontender, nondistended with good bowel sounds heard. BACK: No CVAT, no obvious deformity. EXTREMITIES: Without cyanosis, clubbing or edema. NEUROLOGICAL: Grossly nonfocal. Alert and oriented x 2, moving all 4 extremities. CN not formally tested but appear grossly intact. Skin: Warm and dry without any rash. Psych: Memory lapses with delayed answering with fatigability Objective Labs 12/26/24 05:40 12/26/24 05:40 Labs: Laboratory Results - last 24 hr 12/24/24 12/25/24 12/25/24 16:10 05:35 14:10 WBC 7.9 RBC 2.83 L Hgb 8.8 L D 9.3 L Hct 27.4 L 28.8 L MCV 102 H MCH 32.9 MCHC 32.3 RDW Std Deviation 48.5 H Plt Count 253 Neut % (Auto) 69 Lymph % (Auto) 15 [place] % (Auto) 8 Eos % (Auto) 2 Baso % (Auto) 1 Neut # (Auto) 5.5 Lymph # (Auto) 1.2 [place] # (Auto) 0.7 Eos # (Auto) 0.1 Baso # (Auto) 0.0 Immature Gran # (Auto) 0.38 H Absolute Nucleated RBC 0.00 Immature Gran % 5 H Nucleated RBC % 0 Sodium 148 H 149 H Potassium 3.1 L D Chloride 114 H Carbon Dioxide 22.9 Anion Gap 11 BUN 16 Creatinine 0.8 Estim Creat Clear Calc 33.7 L eGFR > 60 BUN/Creatinine Ratio 20 Glucose 81 Calculated Osmolality 294 Calcium 8.1 L Corrected Calcium 9.1 Phosphorus 2.5 Magnesium 2.1 Total Bilirubin 0.8 AST 18 ALT < 7 L Alkaline Phosphatase 71 Total Protein 5.5 L Albumin 2.7 L Globulin 2.8 Albumin/Globulin Ratio 1.0 L Quality Measures Quality Measures VTE prophylaxis and sepsis Current suspected stage: sepsis Possible source: genitourinary Blood cultures ordered: yes Antibiotic ordered: Yes Advance care planning discussed with:: other Assessment & Plan Assessment Current Active Medications: Generic Name Dose Route Start Last Admin Trade Name Freq PRN Reason Stop Dose Admin Acetaminophen 650 mg 12/21/24 20:06 Acetaminophen Supp 650 Mg Supp [place] 01/20/25 20:05 Q6H PRN PAIN SCALE 1-3 (mild Brexpiprazole [ 0 ea 12/23/24 17:45 12/25/24 09:05 Rexulti] 2 Mg Tablet PO 01/22/25 17:44 1 tablet QDAY MARIANA Administration Folic Acid 1 mg 12/22/24 09:00 12/25/24 09:03 Folic Acid Inj 1 Mg/0.2 Ml IVP 01/21/25 08:59 1 mg QDAY MARIANA Administration Ceftriaxone Sodium 1,000 mg/ 50 mls @ 100 mls/hr 12/22/24 21:00 12/25/24 09:03 Sodium Chloride IV 12/29/24 20:59 100 mls/hr QDAY MARIANA Administration Sodium Chloride 250 mls @ 50 mls/hr 12/25/24 11:22 12/25/24 11:41 Ns 0.45% IV 12/25/24 16:21 50 mls/hr .Q5H MARIANA Administration Mirtazapine 15 mg 12/25/24 09:15 12/25/24 10:33 Mirtazapine 15 Mg Tablet PO 01/24/25 09:14 15 mg QDAY MARIANA Administration Ondansetron HCl 4 mg 12/21/24 20:06 Ondansetron Inj 2 Mg/Ml Inj 2 Ml IV 01/20/25 20:05 Q6H PRN NAUSEA OR VOMITING Protocol Pantoprazole Sodium 40 mg 12/21/24 21:00 12/25/24 09:04 Pantoprazole Inj 40 Mg Vial IVP 01/20/25 20:59 40 mg Q12HR MARIANA Administration Thiamine HCl 100 mg 12/22/24 09:00 12/25/24 09:04 Thiamine Inj 100 Mg/Ml Vial 2 Ml IM 01/21/25 08:59 100 mg QDAY MARIANA Administration Plan Ms. Mims is an 89-year-old female patient with past medical history of dementia, failure to thrive, coronary artery disease status post 2 stents and TIA brought to the ED from [facility] transitional care due to taachycardia, fever, generalized weakness and hematochezia. #Sepsis secondary to UTI #E Coli - UTI #2/2 GPC bacteremia - On admission SIRS 3/4: tachycardia, tachypnea, fever (temperature 101.0) and leukocytosis -Lactic Acid 3.5 -> 1.9 , Pt received 3L of fluid boluses -Chest x-ray showed emphysematous changes however it was negative for any pulmonary infection. Patient met sepsis criteria with a source of infection being urine and evidence of end organ damage (Pt has SDIRA) -Urinalysis positive for: leukocyte esterase, hematuria, pyuria and bacteriuria -No fever spikes or white count elevation noticed Plan -Ordered repeat blood cultures -Start the patient on ceftriaxone 1 g IV 12/22- -Urine cultures grew E. coli -Encourage oral intake as needed -Patient on PureWick #GI bleed, lower #Esophageal ulcers #History of gastritis -Per Pt's chart review, patient was admitted to the hospital 3 weeks ago for concerns for lower GI bleed. At that time EGD was done which showed esophageal ulcers and gastritis. However, because the patient's general condition the GI specialist Dr. Henriquez concluded that the patient is not candidate for colonoscopy and recommended conservative therapy. -The ED team reported that they called Dr. Henriquez in which she recommended no colonoscopy at this time, he is willing to place a PEG tube if family agree on that. On discussion with the daughter at the Ct she denied placing PEG tube for the patient at this time -Patient underwent CT scan on 27 November 2024 and showed colonic diverticulosis and constipation. -On presentation her hemoglobin was 10.6 after the patient was given 2.5 L of fluids her hemoglobin dropped to 8.6. Patient continues to have episodes of hematochezia in the ED -Pt continues to have multiple episodes of hematozia, discussed with granddaughter who does not want Pt to under go invasive work up including colonoscopy. -Post H&H hemoglobin improved to 9.3 Plan -Patient's family refused colonoscopy. Dr. Henriquez, GI specialist recommended to continue Protonix 40 mg IV twice daily -monitor daily CBC and transfuse as needed -PRBC if hemoglobin drops below 7 -Follow-up with CBC and encouraged on oral intake #Hypernatremia #Hypokalemia- resolved #Hyperchloremia #SIDRA most likely prerenal - improved -Patient electrolyte derangement most likely secondary to dehydration due to poor oral intake and infection -sodium level of 155, potassium 3.8, BUN of 74, serum creatinine 2.0, chloride 114, lactic acid 3.5 down trended to 1.9. -Patient was given 2 L of NS by the ED team initially and 500 mL of Ringer lactate. Pro-[place] was negative. -on admission pt was started on D5W which improved Na Plan -Half-normal saline was given x 1 -KCl 40M EQ x 1 given -will continue to monitor with daily labs #Acute encephalopathy most likely multifactorial secondary to dehydration vs. sepsis vs. worsening of dementia - resolved #Dehydration #Failure to thrive #History of dementia Patient body mass index of 19.1, there is temporal wasting, on examination patient is severely dehydrated. And found to have SIDRA Plan: -Added Remeron 15 mg once daily -Referral to dietitian consult start -continue dysphagia pureed diet ordered -Start the patient on folic acid, thiamine, zinc -Boost plus protein shake as needed with meal -resumed home rexulti #History of TIA #History of carotid artery disease Plan ? Hold home medications at this time due to lower GI bleed Health Maintenance DVT Prophylaxis: SCD Q shift GI Prophylaxis: Pantoprozol-40 IV BID Diet: dysphagia pureed diet with boost plus protein shakes Lines: Peripheral lines Code status: DNR/DNI Disposition: Patient is admitted for sepsis due to UTI and lower GI bleed. Pending SNF placement and POLST form signature with daughter tomorrow. -- Patient was seen and discussed with attending physician, Dr. Rafiq Lozano MD, PGY 2 Attending Provider Attestation/Addendum I have examined the patient, reviewed labs and imaging findings, discussed the case with the resident(s), and reviewed entered orders. I agree with the plan of care as outlined in this note, with these additional summaries/recommendations: Patient and daughter seen at bedside. No acute overnight events. Patient appears frail, malnourished, and elderly. Patient admitted for urinary tract infection and has been on IV Rocephin. 12/22/2024 blood cultures preliminarily showing GPC x 2 and awaiting speciation. Possibly contamination. Patient originally admitted for GI bleed although family has declined colonoscopy which seems reasonable given patient's age. She did receive 1 unit PRBCs on admission. Patient also noted to have hypernatremia and we will give additional fluids as needed. Continue to hold home anticoagulation for now. Overall prognosis remains guarded. Repeat hematology and chemistry panel in AM. Dr. Rafiq MD
[2024-12-25 16:00] VITALS: BP 157/72; PULSE 63; PULSE 65; RESP 16; TEMP 36.1; O2SAT 91
[2024-12-25 20:00] VITALS: BP 144/65; PULSE 55; PULSE 63; RESP 18; TEMP 35.9; O2SAT 94
--- NOTE | 2024-12-25 21:37 | ESPR_ITS ---
Documentation for date of: 12/25/24 Subjective Subjective Interval history: Hemoglobin hematocrit 9.3 and 28.8 No signs of any active bleeding Exam Vital Signs Temp Pulse Resp BP Pulse Ox O2 Del Method O2 Flow Rate 96.9 F 63 16 157/72 H 91 L Room Air 0 12/25/24 16:00 12/25/24 16:00 12/25/24 16:00 12/25/24 16:00 12/25/24 16:00 12/25/24 16:00 12/25/24 04:00 Objective Labs 12/25/24 05:35 12/25/24 14:10 Labs: Laboratory Results - last 24 hr 12/25/24 12/25/24 05:35 14:10 WBC 7.9 RBC 2.83 L Hgb 9.3 L Hct 28.8 L MCV 102 H MCH 32.9 MCHC 32.3 RDW Std Deviation 48.5 H Plt Count 253 Neut % (Auto) 69 Lymph % (Auto) 15 [place] % (Auto) 8 Eos % (Auto) 2 Baso % (Auto) 1 Neut # (Auto) 5.5 Lymph # (Auto) 1.2 [place] # (Auto) 0.7 Eos # (Auto) 0.1 Baso # (Auto) 0.0 Immature Gran # (Auto) 0.38 H Absolute Nucleated RBC 0.00 Immature Gran % 5 H Nucleated RBC % 0 Sodium 148 H 149 H Potassium 3.1 L D Chloride 114 H Carbon Dioxide 22.9 Anion Gap 11 BUN 16 Creatinine 0.8 Estim Creat Clear Calc 33.7 L eGFR > 60 BUN/Creatinine Ratio 20 Glucose 81 Calculated Osmolality 294 Calcium 8.1 L Corrected Calcium 9.1 Phosphorus 2.5 Magnesium 2.1 Total Bilirubin 0.8 AST 18 ALT < 7 L Alkaline Phosphatase 71 Total Protein 5.5 L Albumin 2.7 L Globulin 2.8 Albumin/Globulin Ratio 1.0 L Impressions Impression: Occult GI bleeding Family wants no invasive procedure because I talked to the granddaughter myself Continue conservative management Follow CBC Assessment & Plan A&P Narrative # Hematochezia # Acute posthemorrhagic anemia Spoke with the granddaughter over the phone this night Discussed that patient needs a colonoscopy She is going to think about and let me know by tomorrow if the answer is yes we will do a GoLytely prep either orally or via NGT and do a colonoscopy prior to discharge Other medical problems include # Dementia # Coronary artery disease status post PTCA Thank you very much for the opportunity to participate in this patient Time Spent With Patient Time: Total time spent is greater than 50% in coordination of care (as documented) at patient's floor/unit and/or counseling patient:
[2024-12-26] VITALS: BP 140/68; PULSE 55; PULSE 59; RESP 13; TEMP 36.1; O2SAT 94
[2024-12-26 04:00] VITALS: BP 152/63; PULSE 57; PULSE 61; RESP 16; TEMP 36.1; O2SAT 94
[2024-12-26 06:00] VITALS: BMI 17.1
[2024-12-26 06:26] LABS: Basophils % (Auto) 0 % (0-2.5); Eosinophils # (Auto) 0.2 Thou/mm3 (0.0-0.5); Eosinophils % (Auto) 3 % (0-10); Hematocrit 26.4 % (36.0-46.0); Immature Granulocytes % (Auto) 2 % (0-0); Immature Granulocytes Auto 0.15 Thou/mm3 (0.00-0.00); Lymphocytes # (Auto) 1.1 Thou/mm3 (1.0-4.8); Lymphocytes % (Auto) 16 % (10-50); Mean Corpuscular HGB Conc 32.2 g/dl (31.0-37.0); Mean Corpuscular Hemoglobin 32.7 pg (25.0-35.0); Mean Corpuscular Volume 102 fL (80-100); Monocytes # (Auto) 0.6 Thou/mm3 (0.0-0.8); Monocytes % (Auto) 8 % (0-12); Neutrophils # (Auto) 5.1 Thou/mm3 (1.8-7.7); Neutrophils % (Auto) 71 % (37-80); Nucleated Red Blood Cell % 0 /100 WBC (0); Platelet Count 238 Thou/mm3 (140-440); RDW Standard Deviation 47.6 fL (36.4-46.3); White Blood Count 7.2 Thou/mm3 (3.6-11.0)
[2024-12-26 06:31] LABS: Hemoglobin 8.5 g/dL (12.0-16.0)
[2024-12-26 07:13] LABS: Alanine Aminotransferase < 7 U/L (10-49); Albumin, Serum 2.3 gm/dL (3.4-4.8); Albumin/Globulin Ratio 0.9 (1.2-2.2); Alkaline Phosphatase 61 U/L (46-116); Anion Gap 12 (7-16); Aspartate Amino Transferase 18 U/L (0-34); BUN/Creatinine Ratio 18 Ratio (12-20); Bilirubin,Total 0.4 mg/dL (0.3-1.2); Blood Urea Nitrogen 14 mg/dL (9-23); Calcium (Corrected) 9.4 mg/dL (8.5-10.1); Carbon Dioxide 21.2 mMol/L (20.0-31.0); Chloride 114 mMol/L (98-107); Creatinine (Component) 0.8 mg/dL (0.6-1.3); Estimated Creatinine Clearance 33.6 mL/min (>60); Globulin 2.6 gm/dL (2.3-3.5); Glucose 63 mg/dL (74-106); Osmolality,Calculated 290 (275-295); Phosphorous 2.8 mg/dL (2.4-5.1); Potassium 3.3 mMol/L (3.4-5.1); Sodium 147 mMol/L (136-145); Total Protein 4.9 gm/dL (5.7-8.2); eGFR > 60 See Note
[2024-12-26 08:00] VITALS: BP 141/59; PULSE 59; PULSE 63; RESP 20; TEMP 36.7; O2SAT 96
[2024-12-26] MEDS: DEXTROSE 50%-WATER INJ 50 ML SYRINGE 25 ML IV (08:25)
[2024-12-26] MEDS: PANTOPRAZOLE INJ 40 MG VIAL IVP ×2 (09:44→20:25)
[2024-12-26] MEDS: cefTRIAXone/D5w 2gm 2 GM/50 ML BAG IV (09:44)
[2024-12-26] MEDS: THIAMINE INJ 100 MG/ML VIAL 2 ML IM (09:44)
[2024-12-26] MEDS: SODIUM CHLORIDE 0.45 % 250 ML 50 ML IV (09:45)
[2024-12-26] MEDS: FOLIC ACID INJ 1 MG/0.2 ML IVP (09:45)
[2024-12-26] MEDS: POTASSIUM CHLORIDE 10% 20 MEQ/15 ML UDC 40 MEQ PO (09:46)
[2024-12-26] MEDS: MEGESTROL ACET 20 MG TABLET 40 MG PO (10:14)
[2024-12-26 12:00] VITALS: BP 110/68; PULSE 62; RESP 20; TEMP 36.2; O2SAT 94
--- NOTE | 2024-12-26 12:30 | CHAP ---
Patient was visited by the Spiritual Care Volunteer who prayed for them. (Volunteer was in the hospital from 09:30-12:30)
--- NOTE | 2024-12-26 15:06 | PC.SS ---
Addendum entered by YOUNG Galloway 12/26/24 17:19: SS followed up with patient's granddaughter, Vega regarding hospice preference, she informed he would like to wait to see how patient does and decide tomorrow if she will still consider hospice as an option. SS to follow up tomorrow with Vega. Original Note: Rounding note: family would like to peruse hospice services. Anticipate d/c tomorrow.
[2024-12-26 16:00] VITALS: BP 104/46; PULSE 64; PULSE 66; RESP 18; TEMP 36.3
--- NOTE | 2024-12-26 16:03 | ESPR_ITS ---
Documentation for date of: 12/26/24 Subjective Subjective Interval history: Downward trending hemoglobin hematocrit at 8.5 and 26.4 Granddaughter still does not want any invasive GI workup such as colonoscopy which is okay with me Exam Vital Signs Temp Pulse Resp BP Pulse Ox O2 Del Method O2 Flow Rate 97.2 F 62 20 110/68 94 L Room Air 0 12/26/24 12:00 12/26/24 12:00 12/26/24 12:00 12/26/24 12:00 12/26/24 12:00 12/26/24 12:00 12/25/24 04:00 Objective Labs 12/26/24 05:40 12/26/24 05:40 Labs: Laboratory Results - last 24 hr 12/24/24 12/26/24 06:40 05:40 WBC 7.2 RBC 2.60 L Hgb 8.5 L Hct 26.4 L MCV 102 H MCH 32.7 MCHC 32.2 RDW Std Deviation 47.6 H Plt Count 238 Neut % (Auto) 71 Lymph % (Auto) 16 [place] % (Auto) 8 Eos % (Auto) 3 Baso % (Auto) 0 Neut # (Auto) 5.1 Lymph # (Auto) 1.1 [place] # (Auto) 0.6 Eos # (Auto) 0.2 Baso # (Auto) 0.0 Immature Gran # (Auto) 0.15 H Absolute Nucleated RBC 0.00 Immature Gran % 2 H Nucleated RBC % 0 Sodium 147 H Potassium 3.3 L Chloride 114 H Carbon Dioxide 21.2 Anion Gap 12 BUN 14 Creatinine 0.8 Estim Creat Clear Calc 33.6 L eGFR > 60 BUN/Creatinine Ratio 18 Glucose 63 L Calculated Osmolality 290 Calcium 8.0 L Corrected Calcium 9.4 Phosphorus 2.8 Magnesium 2.0 Total Bilirubin 0.4 AST 18 ALT < 7 L Alkaline Phosphatase 61 Total Protein 4.9 L Albumin 2.3 L Globulin 2.6 Albumin/Globulin Ratio 0.9 L Blood Type O Positive Antibody Screen NEGATIVE Crossmatch See Detail Blood Bank Wristband ID Yes Impressions Impression: Occult GI bleeding Continue conservative management Assessment & Plan A&P Narrative # Hematochezia # Acute posthemorrhagic anemia Spoke with the granddaughter over the phone this night Discussed that patient needs a colonoscopy She is going to think about and let me know by tomorrow if the answer is yes we will do a GoLytely prep either orally or via NGT and do a colonoscopy prior to discharge Other medical problems include # Dementia # Coronary artery disease status post PTCA Thank you very much for the opportunity to participate in this patient Time Spent With Patient Time: Total time spent is greater than 50% in coordination of care (as documented) at patient's floor/unit and/or counseling patient:
--- NOTE | 2024-12-26 16:12 | ESPR_ITS ---
Documentation for date of: 12/26/24 Subjective Subjective Interval history: Patient was seen and examined at the bedside. No acute overnight events were reported. This morning, nurse reported that patient after receiving Remeron was drowsy and did not eat her lunch or dinner. Patient had low blood sugars therefore amp of D50 was given x 1. Vitals were stable. Labs showed stable hemoglobin at 8.5. Potassium was 3.3 which was repleted 40 mEq x 1. Patient was given another bolus of half-normal saline for hypernatremia. Goals of care discussion was performed with granddaughter on phone call as she left the hospital and hospice referral was made. Social workers will contact the granddaughter for options regarding hospice.Repeat blood cultures are coming negative for 24 hours. 1 out of 2 blood culture is growing Streptococcus group C pansensitive. Will continue with Rocephin 2 g once daily for bacteremia. Echo was ordered to evaluate for vegetations. Will follow-up tomorrow on final blood cultures. All labs and orders were reviewed. Exam Vital Signs Temp Pulse Resp BP Pulse Ox O2 Del Method O2 Flow Rate 97.2 F 62 20 110/68 94 L Room Air 0 12/26/24 12:00 12/26/24 12:00 12/26/24 12:00 12/26/24 12:00 12/26/24 12:12/26/24 12:12/25/24 04:00 Narrative Exam GENERAL APPEARANCE: Patient is frail appearing female. Saturating well on room air. HEENT: NC, AT. MMM. EOMI, clear conjunctiva, oropharynx clear. NECK: Supple without lymphadenopathy. No stiffness or restricted ROM. HEART: Regular rate and regular rhythm, normal S1/S2, no m/r/g LUNGS: CTAB, moving air well. No crackles or wheezes are heard. ABDOMEN: Soft, nontender, nondistended with good bowel sounds heard. BACK: No CVAT, no obvious deformity. EXTREMITIES: Without cyanosis, clubbing or edema. NEUROLOGICAL: Grossly nonfocal. Alert and oriented x 2, moving all 4 extremities. CN not formally tested but appear grossly intact. Skin: Warm and dry without any rash. Psych: Memory lapses with delayed answering with fatigability Objective Labs 12/27/24 07:11 12/27/24 07:11 Labs: Laboratory Results - last 24 hr 12/24/24 12/26/24 06:40 05:40 WBC 7.2 RBC 2.60 L Hgb 8.5 L Hct 26.4 L MCV 102 H MCH 32.7 MCHC 32.2 RDW Std Deviation 47.6 H Plt Count 238 Neut % (Auto) 71 Lymph % (Auto) 16 [place] % (Auto) 8 Eos % (Auto) 3 Baso % (Auto) 0 Neut # (Auto) 5.1 Lymph # (Auto) 1.1 [place] # (Auto) 0.6 Eos # (Auto) 0.2 Baso # (Auto) 0.0 Immature Gran # (Auto) 0.15 H Absolute Nucleated RBC 0.00 Immature Gran % 2 H Nucleated RBC % 0 Sodium 147 H Potassium 3.3 L Chloride 114 H Carbon Dioxide 21.2 Anion Gap 12 BUN 14 Creatinine 0.8 Estim Creat Clear Calc 33.6 L eGFR > 60 BUN/Creatinine Ratio 18 Glucose 63 L Calculated Osmolality 290 Calcium 8.0 L Corrected Calcium 9.4 Phosphorus 2.8 Magnesium 2.0 Total Bilirubin 0.4 AST 18 ALT < 7 L Alkaline Phosphatase 61 Total Protein 4.9 L Albumin 2.3 L Globulin 2.6 Albumin/Globulin Ratio 0.9 L Blood Type O Positive Antibody Screen NEGATIVE Crossmatch See Detail Blood Bank Wristband ID Yes Quality Measures Quality Measures VTE prophylaxis and sepsis Current suspected stage: sepsis Possible source: genitourinary Blood cultures ordered: yes Antibiotic ordered: Yes Advance care planning discussed with:: other Assessment & Plan Assessment Current Active Medications: Generic Name Dose Route Start Last Admin Trade Name Freq PRN Reason Stop Dose Admin Acetaminophen 650 mg 12/21/24 20:06 Acetaminophen Supp 650 Mg Supp VA 01/20/25 20:05 Q6H PRN PAIN SCALE 1-3 (mild Brexpiprazole [ 0 ea 12/23/24 17:45 12/26/24 09:43 Rexulti] 2 Mg Tablet PO 01/22/25 17:44 1 tablet QDAY MARIANA Administration Dextrose 25 ml 12/26/24 08:00 12/26/24 08:25 Dextrose 50%-Water Inj 50 Ml Syringe IV 01/25/25 07:59 25 ml Q15MIN PRN Administration BG 50-70 responsive npo pt Dextrose 50 ml 12/26/24 08:00 Dextrose 50%-Water Inj 50 Ml Syringe IV 01/25/25 07:59 Q15MIN PRN BG <50 OR BG <70 & pt unresponsive Folic Acid 1 mg 12/22/24 09:00 12/26/24 09:45 Folic Acid Inj 1 Mg/0.2 Ml IVP 01/21/25 08:59 1 mg QDAY MARIANA Administration Glucagon 1 mg 12/26/24 08:00 Glucagon Inj 1 Mg Vial IM Q15MIN PRN BG <70, and no IV access Ceftriaxone Sodium/Dextrose 2 gm in 50 mls @ 100 mls/hr 12/26/24 09:00 12/26/24 09:44 Rocephin/D5w 2gm IV 01/02/25 08:59 100 mls/hr QDAY MARIANA Administration Megestrol Acetate 400 mg 12/27/24 09:00 Megestrol Acet Susp 400 Mg/10 Ml Udc PO 01/25/25 08:59 QDAY MARIANA Ondansetron HCl 4 mg 12/21/24 20:06 Ondansetron Inj 2 Mg/Ml Inj 2 Ml IV 01/20/25 20:05 Q6H PRN NAUSEA OR VOMITING Protocol Pantoprazole Sodium 40 mg 12/21/24 21:00 12/26/24 09:44 Pantoprazole Inj 40 Mg Vial IVP 01/20/25 20:59 40 mg Q12HR MARIANA Administration Thiamine HCl 100 mg 12/27/24 09:00 Thiamine Inj 100 Mg/Ml Vial 2 Ml IV 01/21/25 08:59 QDAY MARIANA Plan Ms. Mims is an 89-year-old female patient with past medical history of dementia, failure to thrive, coronary artery disease status post 2 stents and TIA brought to the ED from [facility] transitional care due to taachycardia, fever, generalized weakness and hematochezia. Goals of care discussion Multiple goals of care discussion has been performed with patient's granddaughter regarding patient's overall declining condition. This morning, 12/26/2024 we explained the patient's granddaughter on the phone call as she left hospital regarding patient's poor oral intake and declining condition overall. We recommended that the patient will benefit with hospice if she does not want to proceed with more invasive treatments including PICC line insertion for GPC bacteremia. We explained to her that we have ordered blood cultures and echo for ruling out vegetations and repeat blood cultures are currently coming negative x 24 hours. Patient's grand daughter wanted to proceed with hospice. We informed social workers regarding granddaughter wishes for hospice and will likely proceed from there. #Sepsis secondary to UTI #E Coli - UTI #2/2 GPC, Streptococcus group C bacteremia - On admission SIRS 3/4: tachycardia, tachypnea, fever (temperature 101.0) and leukocytosis -Lactic Acid 3.5 -> 1.9 , Pt received 3L of fluid boluses -Chest x-ray showed emphysematous changes however it was negative for any pulmonary infection. Patient met sepsis criteria with a source of infection being urine and evidence of end organ damage (Pt has SIDRA) -Urinalysis positive for: leukocyte esterase, hematuria, pyuria and bacteriuria -No fever spikes or white count elevation noticed -1 out of 2 blood cultures Streptococcus group C pansensitive Plan -Refer to hospice -Repeat blood cultures are coming negative x 24 hours -Continue 2 g ceftriaxone IV 12/22- -Urine cultures grew E. coli -Encourage oral intake as needed -Patient on PureWick #GI bleed, lower #Esophageal ulcers #History of gastritis -Per Pt's chart review, patient was admitted to the hospital 3 weeks ago for concerns for lower GI bleed. At that time EGD was done which showed esophageal ulcers and gastritis. However, because the patient's general condition the GI specialist Dr. Henriquez concluded that the patient is not candidate for colonoscopy and recommended conservative therapy. -The ED team reported that they called Dr. Henriquez in which she recommended no colonoscopy at this time, he is willing to place a PEG tube if family agree on that. On discussion with the daughter at the Ct she denied placing PEG tube for the patient at this time -Patient underwent CT scan on 27 November 2024 and showed colonic diverticulosis and constipation. -On presentation her hemoglobin was 10.6 after the patient was given 2.5 L of fluids her hemoglobin dropped to 8.6. Patient continues to have episodes of hematochezia in the ED -Pt continues to have multiple episodes of hematozia, discussed with granddaughter who does not want Pt to under go invasive work up including colonoscopy. -Post H&H hemoglobin improved to 9.3 Plan -Patient's family refused colonoscopy. Dr. Henriquez, GI specialist recommended to continue Protonix 40 mg IV twice daily -monitor daily CBC and transfuse as needed -PRBC if hemoglobin drops below 7 -Follow-up with CBC and encouraged on oral intake #Hypernatremia #Hypokalemia- resolved #Hyperchloremia #SIDRA most likely prerenal - improved -Patient electrolyte derangement most likely secondary to dehydration due to poor oral intake and infection -sodium level of 155, potassium 3.8, BUN of 74, serum creatinine 2.0, chloride 114, lactic acid 3.5 down trended to 1.9. -Patient was given 2 L of NS by the ED team initially and 500 mL of Ringer lactate. Pro-[place] was negative. -on admission pt was started on D5W which improved Na Plan -Half-normal saline was given x 1 -KCl 40M EQ x 1 given -will continue to monitor with daily labs #Acute encephalopathy most likely multifactorial secondary to dehydration vs. sepsis vs. worsening of dementia - resolved #Dehydration #Failure to thrive #Protein calorie malnutrition #History of dementia Patient body mass index of 19.1, there is temporal wasting, on examination patient is severely dehydrated. And found to have SIDRA -Patient's granddaughter refused to place a PEG tube or TPN Plan: -DC'd Remeron and started megestrol 40 mg p.o. once daily -Dietitian on board -continue dysphagia pureed diet ordered -Start the patient on folic acid, thiamine, zinc -Boost plus protein shake as needed with meal -resumed home rexulti #History of TIA #History of carotid artery disease Plan ? Hold home medications at this time due to lower GI bleed Health Maintenance DVT Prophylaxis: SCD Q shift GI Prophylaxis: Pantoprozole 40 IV BID Diet: dysphagia pureed diet with boost plus protein shakes Lines: Peripheral lines Code status: DNR/DNI Disposition: Patient is admitted for sepsis due to UTI and lower GI bleed. Referred to hospice. -- Patient was seen and discussed with attending physician, Dr. Rafiq Lozano MD, PGY 2 Attending Provider Attestation/Addendum I have examined the patient, reviewed labs and imaging findings, discussed the case with the resident(s), and reviewed entered orders. I agree with the plan of care as outlined in this note, with these additional summaries/recommendations: Patient seen at bedside. No acute overnight events. Patient remains a poor historian and unable to make decisions for herself at this time. Patient is frail, malnourished, elderly, and failure to thrive. Recurrent hypokalemia, with persistent hypoalbuminemia, and hypernatremia. Patient has not been able to meet her caloric needs. Goals of care discussion was held again with patient's granddaughter Vega and after discussing all available treatment options she has decided to pursue hospice care. We will make hospice referral and start planning on placement. All questions answered to satisfaction. Patient admitted for urinary tract infection and has been on IV Rocephin. 12/22/2024 blood cultures grew streptococcus group C and 12/25/ blood cultures show no growth. Blood cultures are most likely contaminated and low suspicion for true bacteremia at this time. Patient also found to have a GI bleed although family has declined colonoscopy which seems reasonable given patient's age. She did receive 1 unit PRBCs on admission. Patient also noted to have hypernatremia and we will give additional fluids as needed. Continue to hold home anticoagulation for now. Overall prognosis remains guarded. Repeat hematology and chemistry panel in AM. Pending hospice placement. Dr. Rafiq MD
[2024-12-26 20:00] VITALS: BP 127/68; PULSE 70; PULSE 72; RESP 22; TEMP 36.3; O2SAT 95
[2024-12-27] VITALS: BP 124/50; PULSE 71; PULSE 83; RESP 12; TEMP 36.2; O2SAT 96
[2024-12-27 04:00] VITALS: BP 122/51; PULSE 91; RESP 19; TEMP 36.1; O2SAT 97
[2024-12-27 07:20] LABS: Basophils % (Auto) 0 % (0-2.5); Eosinophils # (Auto) 0.2 Thou/mm3 (0.0-0.5); Eosinophils % (Auto) 2 % (0-10); Hematocrit 26.5 % (36.0-46.0); Immature Granulocytes % (Auto) 2 % (0-0); Immature Granulocytes Auto 0.14 Thou/mm3 (0.00-0.00); Lymphocytes # (Auto) 1.2 Thou/mm3 (1.0-4.8); Lymphocytes % (Auto) 15 % (10-50); Mean Corpuscular HGB Conc 32.8 g/dl (31.0-37.0); Mean Corpuscular Hemoglobin 33.1 pg (25.0-35.0); Mean Corpuscular Volume 101 fL (80-100); Monocytes # (Auto) 0.8 Thou/mm3 (0.0-0.8); Monocytes % (Auto) 10 % (0-12); Neutrophils # (Auto) 5.9 Thou/mm3 (1.8-7.7); Neutrophils % (Auto) 72 % (37-80); Nucleated Red Blood Cell % 0 /100 WBC (0); Platelet Count 303 Thou/mm3 (140-440); RDW Standard Deviation 47.8 fL (36.4-46.3); Red Blood Count 2.63 Miln/mm3 (4.00-5.20); White Blood Count 8.2 Thou/mm3 (3.6-11.0)
[2024-12-27 07:23] LABS: Hemoglobin 8.7 g/dL (12.0-16.0)
[2024-12-27 08:00] VITALS: BP 119/55; PULSE 68; PULSE 92; RESP 19; TEMP 36.1; O2SAT 95
[2024-12-27 08:00] LABS: Alanine Aminotransferase 11 U/L (10-49); Albumin, Serum 2.4 gm/dL (3.4-4.8); Albumin/Globulin Ratio 0.9 (1.2-2.2); Alkaline Phosphatase 82 U/L (46-116); Anion Gap 8 (7-16); Aspartate Amino Transferase 18 U/L (0-34); BUN/Creatinine Ratio 17 Ratio (12-20); Bilirubin,Total 0.4 mg/dL (0.3-1.2); Blood Urea Nitrogen 15 mg/dL (9-23); Calcium 7.8 mg/dL (8.3-10.6); Calcium (Corrected) 9.1 mg/dL (8.5-10.1); Carbon Dioxide 24.4 mMol/L (20.0-31.0); Chloride 114 mMol/L (98-107); Creatinine (Component) 0.9 mg/dL (0.6-1.3); Estimated Creatinine Clearance 29.9 mL/min (>60); Globulin 2.6 gm/dL (2.3-3.5); Glucose 109 mg/dL (74-106); Magnesium 1.9 mg/dL (1.6-2.6); Osmolality,Calculated 292 (275-295); Phosphorous 2.1 mg/dL (2.4-5.1); Potassium 3.2 mMol/L (3.4-5.1); Sodium 146 mMol/L (136-145); eGFR > 60 See Note
[2024-12-27] MEDS: FOLIC ACID INJ 1 MG/0.2 ML IVP (09:06)
[2024-12-27] MEDS: PANTOPRAZOLE INJ 40 MG VIAL IVP (09:07)
[2024-12-27] MEDS: cefTRIAXone/D5w 2gm 2 GM/50 ML BAG IV (09:07)
[2024-12-27] MEDS: MEGESTROL ACET SUSP 400 MG/10 ML UDC PO (09:07)
[2024-12-27] MEDS: THIAMINE INJ 100 MG/ML VIAL 2 ML IV (09:07)
--- NOTE | 2024-12-27 10:14 | PC.SS ---
SS spoke to Latoya at [facility] in regards to accepting pt. Per Latoya she has between in contact with pt granddaughter- Vega Mcgarry who is in agreement with comfort services at [facility]. SS spoke to Vega after conversation with Latoya and Vega stated she is still thinking about it and wants to hear from Team before giving the okay. SS called Dr. Lozano and informed her Vega is at bedside and waiting for them to round on pt to give her update.
[2024-12-27] MEDS: POT PHOS 15 mMol in NS 250 ML 15 MMOL/250 ML BAG 62.5 MMOL IV (10:19)
[2024-12-27 11:47] VITALS: PULSE 69
--- NOTE | 2024-12-27 12:00 | PC.SS ---
SS was present during POLST signing with granddaughter Vega, pt and RN< Jose. Plan is to DC pt to [facility].
--- NOTE | 2024-12-27 12:10 | PC.NURSE ---
made aware that the both the pt IV infiltrated. pt has poor veins. to change IV meds to PO. ok with no IV access
--- NOTE | 2024-12-27 12:19 | ESDS_ITS ---
<Statement entered by Que Church MD - 12/27/24 18:07> I have examined the patient, reviewed labs and imaging findings, discussed the case with the resident(s), and reviewed entered orders. I agree with the plan of care as outlined in this note. Que Church MD Planned Discharge Date 12/27/24 DS: Providers Provider Date of admission: 12/21/24 20:07 Primary care physician: Clark Ruelas MD Admitting Provider: Ceferino Wallace MD Attending Provider on Admission: Ferny Conroy MD Consults: 12/21/24 21:25 Referral Registered Dietitian Stat Comment: 12/22/24 10:41 Referral Registered Dietitian Routine Comment: Referral Speech Therapy Routine Comment: 12/23/24 00:49 Referral Wound Care Urgent Comment: 12/23/24 10:45 Referral Physical Therapy Routine Comment: Physician Instructions: 12/23/24 13:55 Consult to Gastroenterology Routine Comment: evaluation for colonoscopy Consulting Provider: Sania Henriquez 12/26/24 11:48 Referral Hospice Stat Comment: Attending Provider on DC: Que Church MD Discharging Provider: Que Church MD DS: Diagnosis Problem List Completed Was Problem List Reviewed/Reconciled?: Yes Hospital Course Hospital Course Hospital course: DC summary: This is an 89-year-old female patient with past medical history of dementia, failure to thrive, coronary artery disease status post 2 stents and TIA brought to the ED from [facility] transitional care due to taachycardia, fever, generalized weakness and hematochezia. Per patient's chart review, patient was admitted 3 weeks ago for concern for lower GI bleed. At that time EGD was performed which showed esophageal ulcers and gastritis. GI specialist concluded that patient's not candidate for colonoscopy and recommended conservative therapy. Patient came with similar presentation. Hemoglobin was 10.[address] scan showed colonic diverticulosis and constipation. Patient had multiple episode of hematochezia however granddaughter did not wanted to proceed with invasive workup including colonoscopy or PEG tube feedings as patient was not able to eat or drink. Therefore, GI specialist recommended to continue Protonix and transfuse PRBC if hemoglobin drops below 7. Additionally, patient met sepsis criteria with a source of infection being urine and evidence of endorgan damage with SIDRA. Urinalysis was positive for leukocyte Estrace, hematuria, pyuria and bacteria. Lactic acidosis resolved. Patient was found to have group C Streptococcus growth in 2/2 blood cultures and urine cultures were found positive for E. coli pansensitive. Repeat blood cultures came negative for 48 hours. We covered her with IV ceftriaxone 2 g once daily. Additionally, dietitian was consulted for choice of diet and encouraged on p.o. intake. Patient had protein calorie malnutrition with electrolyte imbalance likely due to poor oral intake. Patient was having failure to thrive due to progressing dementia, infection and GI bleed. Multivitamins and supplements were given during hospital stay. Goals of care discussion was performed with patient's granddaughter and she wished to continue with taking the patient at [facility] facility with new POLST form signed as DNR/DNI with comfort focused treatment. POLST form was signed in the presence of social services counselor and an RN. Patient was prescribed with doxycycline 100 mg twice daily for total 6 weeks to complete course of bacteremia. She was given prescription for multivitamins. She was discharged to SNF. Discharge diagnosis: #Sepsis secondary to UTI #E Coli - UTI #GI bleed, lower #Esophageal ulcers #History of gastritis #Hypernatremia #Hypokalemia- resolved #Hyperchloremia #SIDRA most likely prerenal - improved #Acute encephalopathy most likely multifactorial secondary to dehydration vs. sepsis vs. worsening of dementia - resolved #Dehydration #Failure to thrive #History of dementia #History of TIA #History of carotid artery disease DC instructions: -Patient had streptococcus group C bacteremia in the blood therefore she has been prescribed with doxycycline 100 mg 2 times a day for total 6 weeks until February 04, 2025 per daughter wishes to complete the course of antibiotic for bacterial infection in the blood -Take all medication as prescribed -Take folic acid and thiamine once a day daily -Take Protonix 40 mg once daily -Follow-up with PCP as outpatient -New POLST form was signed in the presence of social services counselor and nursing. Patient will be discharged to SNF/[facility] with DNR/DNI and comfort focused treatment For Diet: Continue Ensure Plus 240 mL twice daily with lunch and dinner Continue multivitamin/minerals Continue 100 mg thiamine daily Patient tolerates dysphagia mechanically altered diet with mildly thickened liquid oral per [employer] -- Patient was seen and discussed with attending Physician, Dr Ranjit Lozano MD, PGY2 Time Spent with Patient Time attestation: Total time spent providing and/or coordinating discharge services: Exam Vital Signs Temp Pulse Resp BP Pulse Ox O2 Del Method O2 Flow Rate 97.0 F 69 19 119/55 L 95 Room Air 0 12/27/24 08:00 12/27/24 11:47 12/27/24 08:00 12/27/24 08:00 12/27/24 08:00 12/27/24 08:00 12/25/24 04:00 Narrative Exam GENERAL APPEARANCE: Patient is frail appearing female. Saturating well on room air. HEENT: NC, AT. MMM. EOMI, clear conjunctiva, oropharynx clear. NECK: Supple without lymphadenopathy. No stiffness or restricted ROM. HEART: Regular rate and regular rhythm, normal S1/S2, no m/r/g LUNGS: CTAB, moving air well. No crackles or wheezes are heard. ABDOMEN: Soft, nontender, nondistended with good bowel sounds heard. BACK: No CVAT, no obvious deformity. EXTREMITIES: Without cyanosis, clubbing or edema. NEUROLOGICAL: Grossly nonfocal. Alert and oriented x 2, moving all 4 extremities. CN not formally tested but appear grossly intact. Skin: Warm and dry without any rash. Psych: Memory lapses with delayed answering with fatigability Discharge Plan Plan Patient Disposition: Xfer Skilled Nsg Fac (SNF) Patient condition on transfer: Stable Care Plan Goals: Patient had streptococcus group C bacteremia in the blood therefore she has been prescribed with doxycycline 100 mg 2 times a day for total 6 weeks until February 04, 2025 per daughter wishes to complete the course of antibiotic for bacterial infection in the blood Take folic acid and thiamine once a day daily Take Protonix 40 mg once daily Take all medication as prescribed Follow-up with PCP as outpatient New POLST form was signed in the presence of social services counselor and nursing. Patient will be discharged to SNF/[facility] with DNR/DNI and comfort focused treatment For Diet: Continue Ensure Plus 240 mL twice daily with lunch and dinner Continue multivitamin/minerals Continue 100 mg thiamine daily Patient tolerates dysphagia mechanically altered diet with mildly thickened liquid oral per [employer] Prescriptions/Referrals Prescriptions/Med Rec: New thiamine HCl (vitamin B1) 100 mg tablet 100 mg PO QDAY Qty: 60 0RF folic acid 1 mg tablet 1 mg PO QDAY Qty: 60 0RF megestrol 400 mg/10 mL (10 mL) Suspension 400 mg PO QDAY Qty: 1000 0RF doxycycline monohydrate 100 mg tablet 100 mg PO BID 42 Days Qty: 84 0RF Continued Rexulti 1 mg tablet 2 mg PO DAILY Patient Comments: TAKE 1 TABLET BY MOUTH EVERY DAY pantoprazole [Protonix] 40 mg tablet,delayed release (DR/EC) 40 mg PO QDAY Qty: 30 0RF sucralfate 100 mg/mL suspension 10 ml PO BID Qty: 500 0RF Referrals: Clark Ruelas MD [Primary Care Provider] - Patient/Caregiver Discharge Instructions Print Language: Ethiopian Stand Alone Forms: Anais Award Info., Patient Portal Info Letter Discharge Order Discharge Orders: Discharge (Routine); Ordered 12/27/24 Ordered By: Wolfgang Lozano Quality Discharge Quality Measures VTE prophylaxis
[2024-12-27] MEDS: POTASSIUM CHLORIDE 10% 20 MEQ/15 ML UDC 40 MEQ GT (12:50)
[2024-12-27] MEDS: NAPH,KPH MBDB 1 PACKET (1.5 GM) PO (12:50)
--- NOTE | 2024-12-27 14:13 | PC.NURSE ---
RN called report to Mariah at [facility]. ETA for transportation to [facility] pt is 1530.
--- NOTE | 2024-12-27 14:35 | PC.SS ---
SS spoke to [facility] and updated her on ETA of 153 with P&I transport going to [facility]. Latoya at [facility] also updated. Packet left on chart.
[2024-12-27 16:00] VITALS: BP 114/82; PULSE 65; PULSE 69; RESP 18; TEMP 36.2; O2SAT 95
== END 2024-12-27 16:00 | disposition skilled nursing facility (03) | DRG 871 ==
LOC: SERX 19:18 → SERHOLD 21:34 → S2NX 12-22 07:42 → S3NX 12-27 02:39
PROVIDERS: Nurse Practitioner Family; Student in an Organized Health Care Education/Training Program; Admitting Provider Internal Medicine; Emergency Provider Emergency Medicine; PCP Family Medicine; Visit Provider Student in an Organized Health Care Education/Training Program
DX: A41.51 Sepsis due to Escherichia coli [E. coli] (principal); G93.41 Metabolic encephalopathy; K22.11 Ulcer of esophagus with bleeding; N39.0 Urinary tract infection, site not specified; Z68.1 Body mass index [BMI] 19.9 or less, adult; E87.0 Hyperosmolality and hypernatremia; N17.9 Acute kidney failure, unspecified; E46 Unspecified protein-calorie malnutrition; D62 Acute posthemorrhagic anemia; E87.20 Acidosis, unspecified; I25.10 Atherosclerotic heart disease of native coronary artery without angina pectoris; F03.90 Unspecified dementia, unspecified severity, without behavioral disturbance, psychotic disturbance, mood disturbance, and anxiety; R62.7 Adult failure to thrive; K57.30 Diverticulosis of large intestine without perforation or abscess without bleeding; K29.70 Gastritis, unspecified, without bleeding; R65.20 Severe sepsis without septic shock; E88.09 Other disorders of plasma-protein metabolism, not elsewhere classified; R31.9 Hematuria, unspecified; K59.00 Constipation, unspecified; E87.6 Hypokalemia; E87.8 Other disorders of electrolyte and fluid balance, not elsewhere classified; E86.0 Dehydration; Z86.73 Personal history of transient ischemic attack (TIA), and cerebral infarction without residual deficits; Z95.5 Presence of coronary angioplasty implant and graft; Z51.5 Encounter for palliative care; Z66 Do not resuscitate; Z53.20 Procedure and treatment not carried out because of patient's decision for unspecified reasons; Z88.8 Allergy status to other drugs, medicaments and biological substances
CPT/HCPCS: 36415; 71045; 80053; 81001; 82270; 83605; 83735; 84100; 84145; 84295; 84443; 84484; 85014; 85018; 85025; 85610; 86850; 86900; 86901; 86923; 87015; 87040; 87045; 87046; 87077; 87081; 87086; 87186; 87205; 87493; 87899; 92526; 92610; 96365; 96375; 97162; 99285; J0696; J2470; J3411; J3480; J3490; J7030; J7050; J7060; J7070; J7120; J7999; P9016; A9270